=== PATIENT | female | born 1945 | race Caucasian/White ===

== ENCOUNTER 2024-11-12 17:49 | Inpatient (IN) | payer OTHER, SELFPAY ==
[2024-11-12] VITALS (14 sets, daily range): BP systolic 91–153; BP diastolic 36–85; BMI 31.2
[2024-11-12 11:42] LABS: Glucose - Point of Care 243 mg/dl (70-99)
[2024-11-12] MEDS: NSS 232 ML IV (12:14)
[2024-11-12 14:53] LABS: ACT-LR - POC 252 Seconds (116-155)
[2024-11-12 15:28] LABS: ACT-LR - POC 282 Seconds (116-155)
[2024-11-12 15:47] LABS: ACT-LR - POC 376 Seconds (116-155)
[2024-11-12 16:30] LABS: ACT-LR - POC 136 Seconds (116-155)
[2024-11-12 16:45] LABS: Hematocrit 26.4 % (37.0-47.0); Hemoglobin 8.6 g/dL (12.0-16.0); Mean Corp Hgb Conc. 32.6 g/dL (33.0-37.0); Mean Corpuscular Hgb 28.5 pg (27.0-31.0); Mean Corpuscular Volume 87.4 fL (81.0-99.0); Mean Platelet Volume 8.6 fL (7.4-10.4); Platelet Count 398 10^3/uL (130-400); Red Blood Cell Count 3.02 10^6/uL (4.20-5.40); Red Cell Dist. Width 13.9 % (11.5-14.5); White Blood Cell Count 10.2 10^3/uL (4.8-10.8)
[2024-11-12 17:02] LABS: Blood Urea Nitrogen 25 mg/dl (7-17); Calcium 8.5 mg/dl (8.4-10.2); Carbon Dioxide 24 mmol/L (22-30); Chloride 102 mmol/L (98-107); Estimated Creatinine Clearance 43 ml/min; Glucose 207 mg/dl (70-99); Sodium 133 mmol/L (135-145); eGFR 56.95
--- NOTE | 2024-11-12 17:45 | PTCARENOTE ---
Pt received from wharf labourer at 1745. Pt alert and oriented x4. c/o 9/10 headache, denies nausea at this time. DELACRUZ with equal strength throughout. 100% AV paced on tele with rates in the 70s. BP 128/59. Bilateral radial and DP pulses palpable. no edema
noted. POX 88% on right finger, 2L NC applied. Right radial TR band in place, fingers dusky, Dr. Nova at bedside, and orders for 3ml of air to be removed from TR band. Once removed, fingers turned pink and POX 97%. Lungs diminished in the bases.
No cough noted. Abdomen soft, round, nontender. Last BM yesterday. +BS. Pt educated on bedrest s/p cath, purwick applied per pt request and then removed. Pt voided 300 cristian urine. Right radial cath site soft, TR band in place, no drainage. Left AC
PIV intact. Pt informed RN of itching with novolog, CT OUTPATIENT CODING SPECIALIST notified no changes to medications noted.
--- NOTE | 2024-11-12 18:55 | ITS.CL.PN ---
Recovery Coach - Procedure Note
Procedure
Procedure Note:
CARDIAC CATHETERIZATION REPORT
Date of Procedure: 11/12/2024
Referring: Dr. Briseida Jovel MD
Indication: post-MN complete revascularization
PROCEDURE(S)
1. left heart catheterization
2. PCI with stent to LAD
3. IVUS of LAD
4. Shockwave lithotripsy of LAD
5. ultrasound guided vascular access
6. moderate sedation first 15 minutes
7. moderate sedation additional 15 minutes
ACCESS: 6F right radial artery (closure: radial band)
CATHETER: EBU3.5 guide
HEMODYNAMIC DATA
LV 145/16 (EDP 20) mmHg
AO 147/63 (80) mmHg
VASCULAR ACCESS: Under ultrasound guidance, the right radial artery was identified and patency confirmed. The vessel was then accessed using a micropuncture needle and modified Selinger technique with needle entry visualized in real-time. An 6F
sheath placed.
MODERATE SEDATION: Greater than 30 minutes of procedural sedation was utilized. An independent medical billing representative was present to assist with and help manage the patient's level of consciousness and physiologic status.
IVUS guided PCI to the LAD with Shockwave lithotripsy
The left main was engaged with an EBU 3.5 guide catheter and heparin administered to achieve ACT greater than 300. Run-through coronary wires were placed in the distal LAD and in the D2 for protection. IVUS was performed and demonstrated heavy
concentric calcification at the lesion site and a 3.75 mm reference vessel diameter. Shockwave lithotripsy was performed with a 4.0x12 Shockwave balloon with 30 pulses delivered. The shockwave balloon fully expanded at 6 LISA. A 3.5 x 22 mm [place]
frontier drug-eluting stent was selected and carefully positioned distal to the large D1 and fully covering the lesion. The stent was deployed at 14 lisa. A small puff confirmed normal flow in the jailed diagonal branch and the diagonal wire was
removed and then rewired through stent struts. Angiography at this time demonstrated an excellent PCI result, however, there was noted to be contrast extravasation near the LAD/circumflex bifurcation. On subsequent caudal angiography this was
better delineated to be a Baker grade II perforation originating from the very proximal LAD with slow washout. This was causing apparent extrinsic compression of the ostial circumflex with luminal narrowing but normal TIMI3 flow. There was also a
very small proximal stent edge dissection visualized in the caudal projection, likely unrelated to the perforation. Telemetry demonstrated no change in ST segment changes. The patient had no chest pain. Blood pressure was hypertensive and HR
stable and normal. CT surgery and echocardiography were emergently consulted. IVUS over the LAD wire demonstrated a patent though elliptical ostial circumflex and no clear evidence of vascular disruption in the proximal LAD. The stent was noted
to be well-expanded and apposed, and no proximal stent edge dissection was observed. Echocardiogram demonstrated normal biventricular function and trace/physiologic effusion only with no evidence of elevated intrapericardial pressure. Options were
discussed with CT surgery and additional experienced interventionalist cardiologists. It was noted that the vessel was not a good candidate for covered stent placement given that this would likely require covering the circumflex branch. Given the
patient's stability, plan was made for conservative management with serial angiography, echocardiography, and removal of wires with reversal of heparin. Wires were removed and 30 units of protamine were given. Over the next 2 hours serial
angiography demonstrated stability of the perforation with no progression of the degree of impingement on the ostial circumflex. There was no development of effusion on serial echocardiography. The patient remained entirely asymptomatic and
hemodynamically stable without signs of ischemia. Thus, the decision was made to take the patient off the table and monitor overnight in the CVICU. The guide was removed and LVEDP measured with a 6 Syriac pigtail catheter. The radial site was
closed with a TR band. The patient was already previously loaded with aspirin and Plavix so no additional antiplatelet was given. The patient was updated extensively as was her son.
RADIATION: dose 987 mGy; DAP 63.2 Gy*cm2; fluoroscopy time 16.1 min
CONCLUSIONS
1. successful IVUS-guided, Shockwave lithotripsy facilitated PCI of the mid LAD with placement of a 3.5 x 22 mm [place] frontier drug-eluting stent
2. proximal LAD Baker grade II perforation managed conservatively with heparin reversal and serial monitoring as described
RECOMMENDATIONS
1. expectant management after cardiac catheterization via right radial artery approach
2. monitoring overnight in CVICU for development of ischemia or hemodynamic instability suggestive of tamponade or compromised coronary flow; low threshold for re-look angiography if concern
3. aggressive secondary management of coronary artery disease
Copy to: Dr. Teo Warner MD (outpatient grinder set up operator jig); Dr. Briseida Jovel MD (referring grinder set up operator jig); Dr. Jose Barakat MD (PCP)
Signed: Abelardo Nova MD, PhD
[2024-11-12 19:06] LABS: Glucose - Point of Care 189 mg/dl (70-99)
[2024-11-12] MEDS: NOVOLOG FLEXPEN-MODERATE RESISTANCE 1 UNITS SC (19:10)
[2024-11-12] MEDS: NSS 250 IV (20:00)
--- NOTE | 2024-11-12 20:00 | PTCARENOTE ---
[facility]. Pt resting comfortably in bed with family at bedside. pt is S/P cardiac sent. pt is AAOX4, moves all extremities appropriately, complains of 3/10 head ache and shoulder pain, see JAN. pt is AV paced on monitor via PPM.
heart sounds audible, radial and DP pulses palpable, no edema noted, BP trending down, 250ml NS bolus ordered. lung diminished at b/l bases, spo2 95% on 2 LNC. +BS x4 quadrants, abdomen soft non tender. pt yet to void on my shift but purewick in
place. right wrist cath site has TR band in place, following protocol. call martin within reach. will continue to monitor.
[2024-11-12] MEDS: TOPROL XL PO (20:17)
[2024-11-12] MEDS: TYLENOL 650 MG PO (20:17)
[2024-11-12] MEDS: DELTASONE 5 MG PO (20:17)
--- NOTE | 2024-11-12 21:00 | PTCARENOTE ---
TR band removed, no bleeding at cath site, clean dressing place.
[2024-11-12] MEDS: LIDOCAINE 4% PATCH 1 PATCH TOPICAL (22:08)
[2024-11-12] MEDS: LANTUS 0.24 UNITS SC (22:09)
[2024-11-12 22:12] LABS: Glucose - Point of Care 221 mg/dl (70-99)
[2024-11-12 22:35] LABS: Ionized Calcium 1.16 mMOL/L (1.15-1.33)
[2024-11-12 22:38] LABS: Hemoglobin 8.4 g/dL (12.0-16.0); Mean Corp Hgb Conc. 31.1 g/dL (33.0-37.0); Mean Platelet Volume 8.4 fL (7.4-10.4); Platelet Count 400 10^3/uL (130-400); White Blood Cell Count 14.3 10^3/uL (4.8-10.8)
[2024-11-12 22:50] LABS: Blood Urea Nitrogen 27 mg/dl (7-17); Calcium 8.7 mg/dl (8.4-10.2); Carbon Dioxide 28 mmol/L (22-30); Chloride 99 mmol/L (98-107); Estimated Creatinine Clearance 36 ml/min; Glucose 203 mg/dl (70-99); Potassium 4.4 mmol/L (3.5-5.1); Sodium 133 mmol/L (135-145); eGFR 45.76
[2024-11-13] VITALS (35 sets, daily range): BP systolic 95–185; BP diastolic 35–140; BMI 31.1
--- NOTE | 2024-11-13 | PTCARENOTE ---
pt assessment unchanged. AV paced on monitor. VSS. BP have increased since NS bolus. right wrist cath site dressing clean dry and intact. Lidocaine patch applied to pt's right shoulder. call martin within reach. will continue to monitor.
[2024-11-13 04:05] LABS: Hematocrit 26.8 % (37.0-47.0); Hemoglobin 8.4 g/dL (12.0-16.0); Mean Corp Hgb Conc. 31.3 g/dL (33.0-37.0); Mean Corpuscular Volume 89.3 fL (81.0-99.0); Mean Platelet Volume 8.4 fL (7.4-10.4); Platelet Count 408 10^3/uL (130-400); Red Cell Dist. Width 14.1 % (11.5-14.5); White Blood Cell Count 10.5 10^3/uL (4.8-10.8)
[2024-11-13 04:44] LABS: Blood Urea Nitrogen 29 mg/dl (7-17); Calcium 9.7 mg/dl (8.4-10.2); Carbon Dioxide 26 mmol/L (22-30); Chloride 102 mmol/L (98-107); Estimated Creatinine Clearance 36 ml/min; Glucose 228 mg/dl (70-99); HDL Cholesterol 46 mg/dl; LDL Cholesterol, Calculated 25 mg/dl; Potassium 5.3 mmol/L (3.5-5.1); Sodium 135 mmol/L (135-145); Total Cholesterol 117 mg/dl (50-199); Triglyceride 234 mg/dl (10-149); Very Low Density Lipoprotein 46 mg/dl (0-30); eGFR 45.76
[2024-11-13] MEDS: SYNTHROID 75 MCG PO (06:29)
--- NOTE | 2024-11-13 08:04 | CON.INTV ---
Addendum entered and electronically signed by Liliana Hurley DO 11/14/24 07:15:
Transferred to IVU, no acute respiratory conditions
Will sign off at this time, please call with questions
Original Note:
Consultation
Consultation Request
Date/Time Consultation Requested: 11/13/24
Date/Time Consultation Performed: 11/13/24
Performing Provider: Mei
Reason for Consultation: CVICU
Medical History
-
History of Present Illness:
87-year-old female with previous history of CAD status post PCI at [facility] 10/28/2024, diabetes, permanent A-fib on Xarelto, hypertension presenting for elective catheterization. Underwent catheterization on 11/12/2024 with placement of a
drug-eluting stent in the LAD with resultant perforation. Was admitted post procedurally to CVICU for observation. Had been maintained off pressors throughout the night. Has comorbid history of COPD, maintained on inhalers.
Past Medical History
Past Medical History: Other (see list below)
Social History
Tobacco: Former Smoker
Alcohol: None
Drug: None
Family History
Family History: Reviewed & Not Pertinent
Allergies / Home Medications
Allergies
Allergy/AdvReac Type Severity Reaction Status Date / Time
No Known Allergies Allergy Verified 11/12/24 11:08
Home Medications
�Medication �Instructions �Recorded �Confirmed �Last Taken �Type
albuterol sulfate 90 mcg/actuation 2 puff inhalation Q4HPRN PRN sob/ 11/12/24 11/12/24 10/29/24 History
aerosol inhaler wheeze
alprazolam 0.25 mg tablet 0.25 mg PO DAILY PRN anxiety 11/12/24 11/12/24 Unknown History
aspirin 81 mg chewable tablet 81 mg PO DAILY 11/12/24 11/12/24 11/12/24 10:00 History
clopidogrel 75 mg tablet 75 mg PO DAILY 11/12/24 11/12/24 11/12/24 10:00 History
escitalopram oxalate 20 mg tablet 20 mg PO DAILY 11/12/24 11/12/24 11/11/24 09:00 History
fluticasone fur. 200 mcg-umeclid 1 inh inhalation DAILY 11/12/24 11/12/24 11/12/24 10:00 History
62.5 mcg-vilant 25 mcg
inhalat.powder
furosemide 40 mg tablet 40 mg PO DAILY 11/12/24 11/12/24 11/11/24 09:00 History
inclisiran 284 mg/1.5 mL 284 mg SC [id number] 11/12/24 11/12/24 10/13/24 History
subcutaneous syringe
insulin degludec 100 unit/mL (3 24 unit SC HS 11/12/24 11/12/24 11/11/24 21:30 History
mL) subcutaneous pen (Tresiba
FlexTouch U-100 insulin)
insulin lispro 100 unit/mL 10 - 24 unit SC TID 11/12/24 11/12/24 11/11/24 18:00 History
subcutaneous pen (Humalog KwikPen
(U-100) Insulin)
levothyroxine 75 mcg tablet 75 mcg PO DAILY 11/12/24 11/12/24 11/11/24 08:00 History
(Synthroid)
lisinopril 10 mg tablet 10 mg PO DAILY 11/12/24 11/12/24 11/11/24 09:00 History
metoprolol succinate 100 mg 100 mg PO BID 11/12/24 11/12/24 11/12/24 10:00 History
tablet,extended release 24 hr
(Toprol XL)
pantoprazole 40 mg tablet,delayed 40 mg PO DAILY 11/12/24 11/12/24 11/11/24 09:00 History
release
prednisone 10 mg tablet 10 mg PO DAILY 11/12/24 11/12/24 11/11/24 09:00 History
prednisone 10 mg tablet 10 mg PO Q48H@209911/12/24 11/12/24 Unknown History
prednisone 5 mg tablet 5 mg PO Q48H@2100 11/12/24 11/12/24 Unknown History
rivaroxaban 15 mg tablet (Xarelto) 15 mg PO QPM 11/12/24 11/12/24 11/09/24 History
Review of Systems
-
History Source: Patient
All other systems: Negative unless noted
Vitals / Labs / Diagnostic Testing
Vital Signs
Temp Pulse Resp BP Pulse Ox
97.8 F 70 17 151/65 97
11/13/24 04:00 11/13/24 07:30 11/13/24 07:30 11/13/24 07:00 11/13/24 07:30
Lab Data
11/13/24 03:28
11/13/24 03:28
Diagnostic Testing:
Physical Exam
-
HEENT: Normocephalic, Anicteric and Moist Mucous Membranes
Cardiovascular: S1/S2 and Regular Rhythm
Respiratory: Clear and Non-Labored Respirations
GI: Soft, Non Distended and Non Tender
Neurology: Awake, Alert, Oriented and No Motor Deficits
Skin: Warm, Dry and Good Color
General: Comfortable and Other (NAD)
Assessment
-
87-year-old female with previous history of CAD status post PCI at [facility] 10/28/2024, diabetes, permanent A-fib on Xarelto, hypertension presenting for elective catheterization. Underwent catheterization on 11/12/2024 with placement of a
drug-eluting stent in the LAD with resultant perforation. Was admitted post procedurally to CVICU for observation.
CAD/NSTEMI s/p LHC s/p MYRIAM 11/12/24
C/b LAD perforation
Conditions present COMMERCIAL REAL ESTATE MANAGER
Chronic anemia
PMR
COPD
GERD
Hypothyroidism
Anxiety
DM2
Afib on Xarelto
HTN/HLD
Moderate mitral stenosis on ECHO
Plan
S/p LHC and MYRIAM to LAD with perf POD #1
Not currently on pressors
ECHO reviewed with hyperdynamic function
Cards following for further management
Pain control
RASS goal of 0
Currently stable on room air
No prior history of oxygen use at home
CXR with no acute findings
Prior history of pulmonary disease: COPD
No prior PFTs available for review
Resume on home inhalers
Can add nebulizers if needed
Aspiration precautions
Encouraged incentive spirometry, OOB/ambulation/early mobility
Advance diet as tolerated
GI prophylaxis if indicated for mechanical ventilation >48 hours
Monitor critical I/O's
Short/chest tube output
Hb/platelets postoperatively stable
Trend CBC for now
Can transfuse if indicated for Hb <7, plt <50 in surgical patients
DVT prophylaxis including SCDs
If doing well, can consider discharge planning per team
Diagnostic Data
Chest X-Ray: 11/13/24- Minimal left lower lobe atelectasis versus scarring.
CT Scan:
Echo: 11/13/24- -Moderate left ventricular hypertrophy. Left ventricular ejection fraction is > 75%. Normal regional wall motion. -Normal right ventricular size and function. -Moderate mitral stenosis. Mild mitral regurgitation. -Trivial pericardial
effusion. No significant change since the prior earlier study on 11/13/2024.
PFT's:
Reports and relevant images were personally reviewed.
-----
Critical care time 51 mins -- this includes review of history, physical exam, medications, hemodynamic/ventilator parameters, laboratory data, imaging and discussion with house staff, pharmacy, respiratory therapy, accounting software specialist, and nursing.
[2024-11-13] MEDS: SPIRIVA RESPIMAT 2.5 MCG 2 PUFF INH (08:21)
[2024-11-13] MEDS: SYMBICORT 160/4.5 MCG INHALER 2 PUFF INH ×2 (08:22→21:17)
--- NOTE | 2024-11-13 08:30 | PTCARENOTE ---
Resumed care of patient. Walking rounds completed with previous RN. Pt assessed while she was sitting in the chair. Pt alert and oriented x4. Pt c/o 6/10 right shoulder pain. Denies nausea and shortness of breath. DELACRUZ with equal strength throughout.
100% AV paced with rates at 70. BP 131/56. Bilateral radial and DP pulse palpable. No edema noted. POX 93% on RA. Lungs diminished right >left. No cough noted. Abdomen soft, round, nontender. +BS. +gas. Due to void for this RN. Right radial cath
site soft and intact. Left AC PIV intact. See MAR for medication administration. See worklist for complete nursing assessment. Plan of care reviewed, in contact with Dr. Bundy regarding plan of care.
[2024-11-13] MEDS: NOVOLOG FLEXPEN-MODERATE RESISTANCE 3 UNITS SC (08:40)
[2024-11-13 08:42] LABS: Glucose - Point of Care 219 mg/dl (70-99)
--- NOTE | 2024-11-13 09:01 | PTCARENOTE ---
Dr. Nova at bedside to confirm plan of care, echo first, no plan for cath at this time. Dr. Nova spoke with patient and son, Timothy. All in agreement.
[2024-11-13 09:03] LABS: Glycohemoglobin (HgbA1c) 9.8 % (4.0-5.6)
--- NOTE | 2024-11-13 09:11 | W.PN.CARDCBS ---
Addendum entered and electronically signed by AUGUSTO Logan 11/13/24 09:57:
Stop Atorvastatin at d/c she is on [id number], inclisiran
Original Note:
Today's Communication / Plan
-
f/u ECHO this am
If effusion stable resume DAPT, hold Xarelto until after relook cath on 11/19
home later today if stable after DAPT resumed
Impression / Plan
-
Primary care Physician: Dr. Jose Barakat MD
Primary wax room supervisor: Dr. Teo Warner MD
Impression/Plan:
CAD/NSTEMI (PCI RCAx2 10/28/24 @[facility]) - post staged PCI and lithotripsy of LAD 11/12/24 c/b perforation proximal LAD with trivial pericardial effusion
no cp this am, tele AV dual paced no significant ectopy
will repeat ECHO this am to assess effusion, Hbg stable at 8.4 (has chronic anemia, baseline hbg ~9-10) will recheck labs on monday
If stable effusion will resume DAPT ASA/Plavix, hold Xarelto 15mg, will return on sunday 11/19 to reassess perforation prior to resuming Xarelto
continue metoprolol, lisinopril, atorvastatin
cardiac rehab c/s
f/u Dr. Warner in 2-4 weeks
DM2 - A1c 9.8, continue insulin but better management needed, will f/u PCP
Permanent Afib - Holding Xarelto, resume after cath 11/19 if stable
HTN - ok to resume metoprolol and lisinopril this am
Hyperlipidemia - LDL 25, TG 234 continue atorvastatin 40mg
Chronic anemia - starting IV iron infusions this monday
PMR
COPD
GERD
Hypothyroidism
Anxiety
Hypothyroidism
CONCLUSIONS
1. successful IVUS-guided, Shockwave lithotripsy facilitated PCI of the mid LAD with placement of a 3.5 x 22 mm [place] frontier drug-eluting stent
2. proximal LAD Baker grade II perforation managed conservatively with heparin reversal and serial monitoring as described
Progress Note - Finisher Operator
Subjective
Date of Service: November 13, 2024
no cp, sob, mild congestion productive cough
Objective
Labs:
11/13/24 03:28
11/13/24 03:28
Labs
Hgb 8.4 g/dL (12.0-16.0) L 11/13/24 03:28
Hct 26.8 % (37.0-47.0) L 11/13/24 03:28
Plt Count 408 10^3/uL (130-400) H 11/13/24 03:28
Sodium 135 mmol/L (135-145) 11/13/24 03:28
Potassium 5.3 mmol/L (3.5-5.1) H 11/13/24 03:28
BUN 29 mg/dl (7-17) H 11/13/24 03:28
Creatinine 1.2 mg/dL (0.6-1.0) H 11/13/24 03:28
Glucose 228 mg/dl (70-99) H 11/13/24 03:28
Vital Signs and I&O:
Vital Signs
Temp Pulse Resp BP Pulse Ox
98.5 F 70 13 142/61 96
11/13/24 08:00 11/13/24 09:00 11/13/24 09:00 11/13/24 09:00 11/13/24 09:00
Vital Signs
Temp Pulse Resp BP Pulse Ox
98.5 F 70 13 142/61 96
11/13/24 08:00 11/13/24 09:00 11/13/24 09:00 11/13/24 09:00 11/13/24 09:00
Intake & Output
11/11/24 11/12/24 11/13/24 11/14/24
06:59 06:59 06:59 06:59
Intake Total 722 / 722 0 / 0
Output Total 400 / 400
Balance 322 / 322 0 / 0
Physical Exam
Physical Exam
NAD< AOx3
S1, S2, RRR
CTAB, non labored, no wheeze
SNTND bsx4
R rad site c/d/i good pulse
[2024-11-13 09:34] LABS: ACT-LR - POC > 397 Seconds (116-155)
--- NOTE | 2024-11-13 10:08 | PTCARENOTE ---
Called to room by ocular care technologist. RN stated pt was having a possible reaction to the lumison for echo. Pt c/o itchy eyes and throat. POX 94% on 1L NC. Pt states reaction resolved within 2 minutes. BP 130/44. Pt alert and oriented x4. Mecca Stevens NP
notified of possible reaction.
--- NOTE | 2024-11-13 10:08 | CARDSERVLU ---
Echocardiogram with Lumason completed after protocol screening completed. Allergies verified.
Patent IV site: ___Left antecubital IV site clear__
IV site flushed with 0.9% NaCl pre and post administration.
Diluted bolus method utilized to enhance visualization of ventricular gamez.
Total volume given: _2___ mL
Pt complained of itchy eyes and throat felt slight itchy, O2 sat remained 94-95%. Pt denied any SOB, symptom resolved after few minutes. BP stable. No change in status, Lumason listed as possible allergy. Pt offers no complaints at present, CV ICU
staff aware.
[2024-11-13] MEDS: DELTASONE 10 MG PO ×2 (10:09→21:01)
[2024-11-13] MEDS: LEXAPRO 20 MG PO (10:09)
[2024-11-13] MEDS: PROTONIX 40 MG PO (10:09)
[2024-11-13] MEDS: LASIX 40 MG PO (10:10)
[2024-11-13] MEDS: TOPROL XL 100 MG PO ×2 (10:10→20:59)
[2024-11-13] MEDS: LOW STRENGTH ASPIRIN 81 MG PO (10:19)
--- NOTE | 2024-11-13 10:50 | PTCARENOTE ---
Pt assisted to bathroom per pt request, upon answering bathroom call martin, pt in rigors, assisted back to the chair, then to bed. Unable to obtain POX and BP due to patient shaking. Dr. Nova, Dr. Harris, Mecca Stevens all notified, Dr. Harris,
Gregor,and Mecca Stevens at bedside to assess patient. Orders for stat echo. BP 185/89, POX 88, increased to 4L NC. Echo at bedside. Meds administered as ordered. Pt reassured and emotional support provided. Blood cultures obtained by phlebotomy and IVT.
Rigors resolved ~1115. BP, POX, and HR stabilized.
--- NOTE | 2024-11-13 11:28 | W.PN.UPDATE ---
Update Note
Progress Note Update
Pt had echo this am with no change in pericardial effusion, she did have Lumason and had mild itchy eye/throat which resolved at the end of the study.
She got oob and ambulated to BR. When she returned she had tachycardia HR 120's, elevated BP, rigors and nausea.
Stat f/u Echo with unchanged effusion, mildly underfilled.
Will give IV bolus 500cc over 2 hours, culture blood, urine, flu and COVID now.
Will treat like allergic reaction with famotidine 40mg and Benadryl 25mg, she is chronically on steroids so will hold off.
continue to monitor closely
[2024-11-13] MEDS: ZOFRAN 4 MG IV (11:29)
[2024-11-13] MEDS: BENADRYL 25 MG IV (11:31)
[2024-11-13] MEDS: PEPCID 40 MG IV (11:31)
[2024-11-13] MEDS: NSS 500 IV (11:32)
[2024-11-13] MEDS: NSS (PRESERVATIVE FREE) 8 ML IV (11:32)
[2024-11-13] MEDS: TYLENOL 650 MG PO (12:00)
[2024-11-13] MEDS: PLAVIX 75 MG PO (12:00)
--- NOTE | 2024-11-13 12:00 | PTCARENOTE ---
Pt reassessed. Pt resting in bed. V-paced with rates in the 70s. BP 102/40. POX 97% on 2L NC. Right radial cath site soft, dressing CDI. No additional rigors noted.
[2024-11-13] MEDS: NSS (PRESERVATIVE FREE) IV (12:02)
[2024-11-13] MEDS: NOVOLOG FLEXPEN-MODERATE RESISTANCE 7 UNITS SC ×2 (13:41→16:34)
[2024-11-13 13:44] LABS: Glucose - Point of Care 338 mg/dl (70-99)
--- NOTE | 2024-11-13 14:07 | W.PN.UPDATE ---
Update Note
Progress Note Update
I was called to assess the patient after reports of HR of 130 bpm and rigors.
Obvious initial concern was for rupture of contained coronary rupture from yesterday.
STAT echocardiogram showed hyperdynamic LV function, no effusion.
Patient received IV echo contrast for echo this morning.
By the time of evaluation, HR had normalized. The patient subjectively felt better, though she still had some chills.
DDx includes infection vs. delayed/blunted allergic reaction (she takes home prednisone).
Plan for BCx x2, UA, CXR, famotidine 40 mg IV, diphenhydramine 25 mg IV.
Low threshold for initiation of ABX.
Close observation.
[2024-11-13 14:30] LABS: Urine Albumin Trace (Neg - Trace); Urine Bilirubin Negative (Negative); Urine Character Clear (Clear); Urine Color Yellow; Urine Glucose Trace (Negative); Urine Ketone Negative (Negative); Urine Leukocyte Negative (Negative); Urine Nitrite Negative (Negative); Urine Occult Blood Negative (Negative); Urine Urobilinogen Negative (Neg - 1+)
--- NOTE | 2024-11-13 15:40 | CM ---
Reviewed chart. Met with Mrs. Benitez and her son to review discharge plans. She states prior to admission she resides alone in a [address], [place] [place]. She states prior to admission she was independent with ambulation and adls.
She states she has a walker at home. She states she has a prescription plan. Her son states she is going to go to his home ofr a few days in [facility] before returning to her apartment. He states he resides in a three story home without any steps
to enter. She will be staying on the first floor. There is a main suite on the first floor. She states she has had [facility] in the past and she is agreeable to [facility]. Telephone call to [facility] to make the
referral. Sent the referral. Medical work-up in progress. The discharge plan is to go home with her son for a few days then return home to her apartment with [facility] when medically stable.
--- NOTE | 2024-11-13 16:30 | PTCARENOTE ---
Pt reassessed. Pt denies pain, shortness of breath, and nausea. Assisted OOB to chair, tolerated. V-paced on tele with rates in the 80s-90s. BP 117/60. POX 88% on RA, 1L applied, POX 92%. Right radial cath site intact. No rigors noted. Family at
bedside.
[2024-11-13 16:38] LABS: Glucose - Point of Care 300 mg/dl (70-99)
--- NOTE | 2024-11-13 21:19 | PTCARENOTE ---
Received patient at change of shift. Patient transferred from CVICU with no issues. Right radial site clean, dry, and intact; soft, no hematoma, no ecchymosis. BP 96/58, A-V paced 70s, 95% on 1L. Discussed plan for evening and weaning off oxygen.
Patient agreed to call nurse with any shortness of breath. Call martin within reach.
[2024-11-13 22:20] LABS: Glucose - Point of Care 359 mg/dl (70-99)
[2024-11-13] MEDS: LANTUS 0.24 UNITS SC (22:35)
[2024-11-14 03:46] VITALS: BP 137/54
[2024-11-14] MEDS: SYNTHROID 75 MCG PO (03:57)
[2024-11-14 04:32] LABS: Hematocrit 25.3 % (37.0-47.0); Hemoglobin 8.2 g/dL (12.0-16.0); Mean Corp Hgb Conc. 32.4 g/dL (33.0-37.0); Mean Corpuscular Volume 89.4 fL (81.0-99.0); Mean Platelet Volume 8.7 fL (7.4-10.4); Platelet Count 305 10^3/uL (130-400); Red Blood Cell Count 2.83 10^6/uL (4.20-5.40); Red Cell Dist. Width 13.7 % (11.5-14.5); White Blood Cell Count 8.3 10^3/uL (4.8-10.8)
[2024-11-14 04:50] LABS: Blood Urea Nitrogen 31 mg/dl (7-17); Calcium 9.8 mg/dl (8.4-10.2); Carbon Dioxide 28 mmol/L (22-30); Chloride 99 mmol/L (98-107); Estimated Creatinine Clearance 29 ml/min; Glucose 332 mg/dl (70-99); Magnesium 1.9 mg/dl (1.6-2.3); Sodium 133 mmol/L (135-145); eGFR 35.01
[2024-11-14 06:53] VITALS: BP 135/56
[2024-11-14 06:54] LABS: Glucose - Point of Care 357 mg/dl (70-99)
[2024-11-14] MEDS: SPIRIVA RESPIMAT 2.5 MCG 2 PUFF INH (07:25)
[2024-11-14] MEDS: SYMBICORT 160/4.5 MCG INHALER 2 PUFF INH (07:25)
--- NOTE | 2024-11-14 07:58 | W.PN.CD ---
Today's Communication / Plan
-
discharge with plan for labs tomorrow to track Cr
cont. DAPT asa/plavix as outpatient
return to clinical laboratory manager Monday for relook angio
Impression / Plan
-
Primary care Physician: Dr. Jose Barakat MD
Primary band sawyer: Dr. Teo Warner MD
Impression/Plan:
CAD/NSTEMI (PCI RCAx2 10/28/24 @[facility]) - post staged PCI and lithotripsy of LAD 11/12/24 c/b contained perforation/pseudoaneurysm of proximal LAD
no cp this am, tele AV dual paced no significant ectopy
no effusion on serial echocardiograms
Hbg stable at 8.2 (has chronic anemia, baseline Hb ~9-10)
will continue DAPT with ASA/plavix and hold AC for now pending re-look angiography on Monday
continue metoprolol, lisinopril, atorvastatin
cardiac rehab c/s
f/u Dr. Warner in 2-4 weeks
Rigors / tachycardia, resolved
brief episode yesterday of subjective rigors without fever and sinus tachycardia
echo ruled out effusion, cardiac function unchanged
resolved spontaneously in ~1 hour
differential includes sepsis, delayed reaction to lumison
CXR/urine/flu negative, BCx pending
given stability did not empirically treat with abx
will follow up blood cultures
AMADA
possible post cath contrast induced
labs Monday to ensure stability
DM2 - A1c 9.8, continue insulin but better management needed, will f/u PCP
Permanent Afib - Holding Xarelto, resume after cath 11/19 if stable
HTN - cont. metoprolol and lisinopril
Hyperlipidemia - LDL 25, TG 234 continue atorvastatin 40mg
Chronic anemia - starting IV iron infusions this Monday
PMR
COPD
GERD
Hypothyroidism
Anxiety
Hypothyroidism
CONCLUSIONS
1. successful IVUS-guided, Shockwave lithotripsy facilitated PCI of the mid LAD with placement of a 3.5 x 22 mm Aaron frontier drug-eluting stent
2. proximal LAD Baker grade II perforation managed conservatively with heparin reversal and serial monitoring as described
Physical Exam
Vital Signs/Labs
Vital Signs
Temp Pulse Resp BP Pulse Ox
37.1 C 82 18 137/54 92
11/14/24 06:51 11/14/24 07:29 11/14/24 07:29 11/14/24 03:46 11/14/24 07:29
11/13/24 11/14/24 11/15/24
06:59 06:59 06:59
Actual Weight 77.1 kg
11/14/24 03:52
11/14/24 03:52
Magnesium 1.9 mg/dl (1.6-2.3) 11/14/24 03:52
Triglycerides 234 mg/dl (10-149) H 11/13/24 03:28
LDL Cholesterol, Calc 25 mg/dl 11/13/24 03:28
VLDL Cholesterol, Calc 46 mg/dl (0-30) H 11/13/24 03:28
HDL Cholesterol 46 mg/dl 11/13/24 03:28
Physical Exam
Constitutional: No acute distress
Cardiovascular: Rhythm & rate is regular
Respiratory: Respiratory effort normal
Neuro/Psych: AO x 3
Data Reviewed
-
Date of Service: November 14, 2024
Medical Decision Making: Reviewed Test Results
EKG: Tracing Personally Visualized and interpreted
Echo: Tracing Personally Visualized and interpreted
X-Ray/CT/US/MRI/NUC/PET: Image Personally Visualized and interpreted
Medical Tests (PFT, Pathology etc): Image Personally Visualized and interpreted
Labs: Labs Reviewed by me
--- NOTE | 2024-11-14 09:25 | CM ---
[facility] has accepted pt. for [facility].
Plan is for home w/ [facility] fax# [phone]
[2024-11-14] MEDS: LEXAPRO 20 MG PO (09:26)
[2024-11-14] MEDS: TOPROL XL 100 MG PO (09:26)
[2024-11-14] MEDS: LASIX 40 MG PO (09:26)
[2024-11-14] MEDS: PROTONIX 40 MG PO (09:27)
[2024-11-14] MEDS: NOVOLOG FLEXPEN-MODERATE RESISTANCE 9 UNITS SC (09:27)
[2024-11-14] MEDS: PLAVIX 75 MG PO (09:45)
[2024-11-14] MEDS: LOW STRENGTH ASPIRIN 81 MG PO (09:45)
[2024-11-14] MEDS: DELTASONE 10 MG PO (09:46)
--- NOTE | 2024-11-14 10:38 | W.DS.TRANS ---
DC Summary - [employer]er [employer]
-
Discharge Instructions:
Discharge Diagnosis/Procedures Angioplasty and stent to Left Anterior
Descending artery
Diet Low Cholesterol,Diabetic, Carb Controlled
Driving Restrictions No driving for 24 hours
Blood Work check BMP at iron infusion tomorrow, results to
Dr. Nova
Other Services Cardiac Rehab
Instructions:
Stand-Alone Forms: DC Instructions- Cath/EP Lab
Changes to Home Medications: Yes
Discharge Medications:
DC Medications w/original date entered in [facility]
albuterol sulfate 90 mcg/actuation aerosol inhaler 2 puff inhalation Q4HPRN PRN sob/ wheeze 11/12/24
alprazolam 0.25 mg tablet 0.25 mg PO DAILY PRN anxiety 11/12/24
aspirin 81 mg chewable tablet 81 mg PO DAILY Blood Clot Prevention/Tx 11/12/24
escitalopram oxalate 20 mg tablet 20 mg PO DAILY Mental Health/Anxiety 11/12/24
fluticasone fur. 200 mcg-umeclid 62.5 mcg-vilant 25 mcg inhalat.powder 1 inh inhalation DAILY Lung/Breathing Issues 11/12/24
furosemide 40 mg tablet 40 mg PO DAILY Fluid Retention/Swelling 11/12/24
inclisiran 284 mg/1.5 mL subcutaneous syringe 284 mg SC [id number] Autoimmune Disorder 11/12/24
insulin degludec 100 unit/mL (3 mL) subcutaneous pen (Tresiba FlexTouch U-100 insulin) 24 unit SC HS Diabetes 11/12/24
insulin lispro 100 unit/mL subcutaneous pen (Humalog KwikPen (U-100) Insulin) 10 - 24 unit SC TID Diabetes 11/12/24
levothyroxine 75 mcg tablet (Synthroid) 75 mcg PO DAILY Thyroid 11/12/24
lisinopril 10 mg tablet 10 mg PO DAILY Blood Pressure 11/12/24
metoprolol succinate 100 mg tablet,extended release 24 hr (Toprol XL) 100 mg PO BID Heart Disease/Condition 11/12/24
pantoprazole 40 mg tablet,delayed release 40 mg PO DAILY Gastrointestinal Issue 11/12/24
prednisone 10 mg tablet 10 mg PO DAILY Anti-Inflammatory 11/12/24
prednisone 10 mg tablet 10 mg PO Q48H@2100 Anti-Inflammatory 11/12/24
prednisone 5 mg tablet 5 mg PO Q48H@2100 Anti-Inflammatory 11/12/24
rivaroxaban 15 mg tablet (Xarelto) 15 mg PO QPM Blood Clot Prevention/Tx 11/12/24
clopidogrel 75 mg tablet 75 mg PO DAILY Blood Clot Prevention/Tx #90 tabs 11/14/24
Home Medication Changes
new to plavix, holding xarelto for now
Pending Results: No
[2024-11-14 10:51] VITALS: BP 114/53
--- NOTE | 2024-11-14 11:46 | CM ---
CM following for DC planning needs.
Met w/ patient at bedside.
She has been transferred to IVU from CVICU. Pt. feels well and is hopeful for DC today; offers no concerns/needs at this time.
Plan: HOME, no needs.
--- NOTE | 2024-11-14 12:04 | PTCARENOTE ---
Pt c/o itching under ECG pads, changed to red dot brand with some improvement, no visible change to pt's skin, Mecca Stevens NP aware. Telemetry and IV devices removed. Discharge instructions reviewed with pt and her son regarding activity guidelines,
wound care, medications and their possible side effects, reporting cares and concerns and follow up lab work and tests. Very good understanding verbalized. Pt escorted out via wheelchair and discharged to home.
== END 2024-11-14 11:53 | disposition home or self-care (01) | DRG 323 ==
LOC: IVU 17:49
PROVIDERS: Internal Medicine Cardiovascular Disease; Nurse Practitioner; Nurse Practitioner Adult Health; ADMITTING PHYSICIAN Student in an Organized Health Care Education/Training Program; FAMILY PHYSICIAN Internal Medicine; OTHER PHYSICIAN Internal Medicine
PROC: B240ZZ3 Ultrasonography of Single Coronary Artery, Intravascular (ICD-10-PCS; 2024-11-12)
PROC: 02F03ZZ Fragmentation in Coronary Artery, One Artery, Percutaneous Approach (ICD-10-PCS; 2024-11-12)
PROC: 4A023N7 Measurement of Cardiac Sampling and Pressure, Left Heart, Percutaneous Approach (ICD-10-PCS; 2024-11-12)
PROC: 027034Z Dilation of Coronary Artery, One Artery with Drug-eluting Intraluminal Device, Percutaneous Approach (ICD-10-PCS; 2024-11-12)
DX: I25.10 Atherosclerotic heart disease of native coronary artery without angina pectoris (principal); I21.4 Non-ST elevation (NSTEMI) myocardial infarction; N17.9 Acute kidney failure, unspecified; I48.21 Permanent atrial fibrillation; I31.39 Other pericardial effusion (noninflammatory); I25.2 Old myocardial infarction; E11.9 Type 2 diabetes mellitus without complications; Z79.01 Long term (current) use of anticoagulants; I10 Essential (primary) hypertension; E78.5 Hyperlipidemia, unspecified; D64.9 Anemia, unspecified; M35.3 Polymyalgia rheumatica; J44.9 Chronic obstructive pulmonary disease, unspecified; K21.9 Gastro-esophageal reflux disease without esophagitis; E03.9 Hypothyroidism, unspecified; F41.9 Anxiety disorder, unspecified; Z79.02 Long term (current) use of antithrombotics/antiplatelets; Z79.4 Long term (current) use of insulin; Z79.82 Long term (current) use of aspirin; Z79.890 Hormone replacement therapy; Z79.899 Other long term (current) drug therapy; Z87.891 Personal history of nicotine dependence
CPT/HCPCS: 93308; 71045; 80048; 80061; 81003; 82330; 82962; 83036; 83735; 85027; 85347; 86850; 86870; 86900; 86901; 86905; 87040; 87502; 92972; 92978; 93005; 93306; 94640; 99152; 99153; C1725; C1753; C1761; C1874; C1894; C9600; Q9950; Q9967

== ENCOUNTER 2024-11-19 06:34 | Day surgery (SDC) | payer SELFPAY ==
[2024-11-19] VITALS (13 sets, daily range): BP systolic 96–164; BP diastolic 47–70; BMI 31.2
[2024-11-19 07:40] LABS: Glucose - Point of Care 192 mg/dl (70-99)
--- NOTE | 2024-11-19 08:32 | ITS.CL.PN ---
[facility] - Procedure Note
Procedure
Procedure Note:
CARDIAC CATHETERIZATION REPORT
Date of Procedure: 11/19/24
Referring: Dr. Abelardo Nova MD, PhD
Indication: re-look angiography to evaluate coronary pseudoaneurysm
PROCEDURE(S)
1. left heart catheterization
2. coronary angiography
ACCESS: 6F right radial artery (closure: radial band)
CATHETERS
1. 6F JR4
2. 6F JL3.5
MODERATE SEDATION: 22 minutes of moderate sedation was utilized. An independent director of medical staff services was present to assist with and help manage the patient's level of consciousness and physiologic status.
ULTRASOUND GUIDED VASCULAR ACCESS (right radial artery): Ultrasound was utilized for vascular access. The vessel was visualized under ultrasound and noted to be patent. An image of the vessel was stored permanently in the patient's medical record.
Under direct ultrasound guidance, vascular access was obtained using a modified Seldinger technique and a 6 [place] sheath was placed.
HEMODYNAMIC DATA
LV 128/17 (EDP 20) mmHg
AO 130/55 (mean 85) mmHg
CORONARY ANGIOGRAPHY
Dominance: right
LM: large and normal
LAD: large vessel giving rise to a large D1, moderate caliber D2, small D3. There is a widely patent stent in the mid-LAD. There is small area of contrast filling outside the vessel lumen adjacent to the very proximal LAD best seen in the COURTNEY caudal
projection that is smaller compared to prior angiogram. This is likely a pseudoaneurysm. Dye appears to wash out of the area quickly.
LCx: large vessel giving rise to a single large OM branch with mild disease. There is mild ostial pinching caused by the proximal LAD pseudoaneurysm. The degree of ostial narrowing has improved compared to prior angiogram.
RCA: large vessel giving rise to a large RPDA and large RPL system with multiple branches. There are widely patent stents in the proximal to mid RCA and otherwise mild disease.
RADIATION: dose 457 mGy; DAP 27.6 Gy*cm2; fluoroscopy time 3.4 min
CONCLUSIONS
1. coronary artery disease status post PCI as described with widely patent stents in the RCA and LAD
2. improved appearance of previously identified proximal LAD coronary pseudoaneurysm
3. mildly elevated LVEDP and no aortic stenosis
RECOMMENDATIONS
1. expectant management after cardiac catheterization via right radial approach
2. resume Xarelto 10 mg qHS tonight (reduced dosing due to both antiplatelet medication and reduced CrCl)
3. continue Plavix qD, stop ASA
4. interval coronary angiogram in 4-6 weeks
Copy to: Dr. Teo Warner MD (outpatient remote ruby on rails developer); Dr. Briseida Jovel MD (referring remote ruby on rails developer); Dr. Jose Barakat MD (PCP)
Signed: Abelardo Nova MD, PhD
== END 2024-11-19 11:28 | disposition home or self-care (01) ==
LOC: CATH 06:34
PROVIDERS: ATTENDING PHYSICIAN Student in an Organized Health Care Education/Training Program; FAMILY PHYSICIAN Internal Medicine; OTHER PHYSICIAN Internal Medicine Cardiovascular Disease
DX: Q24.5 Malformation of coronary vessels (principal); I25.10 Atherosclerotic heart disease of native coronary artery without angina pectoris; Z95.5 Presence of coronary angioplasty implant and graft; I25.2 Old myocardial infarction; I48.21 Permanent atrial fibrillation; I10 Essential (primary) hypertension; E78.5 Hyperlipidemia, unspecified; E03.9 Hypothyroidism, unspecified; E11.9 Type 2 diabetes mellitus without complications; J44.9 Chronic obstructive pulmonary disease, unspecified; Z87.891 Personal history of nicotine dependence; Z79.82 Long term (current) use of aspirin; Z79.4 Long term (current) use of insulin; Z79.01 Long term (current) use of anticoagulants; Z79.02 Long term (current) use of antithrombotics/antiplatelets
CPT/HCPCS: 99152; 76937; 82962; 93458; Q9967

== ENCOUNTER 2024-12-13 07:23 | Day surgery (SDC) | payer OTHER, SELFPAY ==
[2024-12-13] VITALS (17 sets, daily range): BP systolic 138–196; BP diastolic 53–83; BMI 31.4
[2024-12-13 08:16] LABS: Glucose - Point of Care 150 mg/dl (70-99)
[2024-12-13] MEDS: NSS 238 ML IV (08:52)
[2024-12-13 10:51] LABS: Glucose - Point of Care 141 mg/dl (70-99)
[2024-12-13] MEDS: NSS 1000 IV (10:52)
--- NOTE | 2024-12-13 11:20 | PTCARENOTE ---
Pt's pulse ox is 89-92%. Pt denies SOB at this time. Pt's son states pt's pulse ox is 89-91% at home as well. Will continue to monitor.
--- NOTE | 2024-12-13 16:37 | ITS.CL.PN ---
[employer] - Procedure Note
Procedure
Procedure Note:
Procedure Note:
CARDIAC CATHETERIZATION REPORT
Date of Procedure: 12/13/2024
Referring: Dr. Abelardo Nova MD, PhD
Indication: anginal chest pain, re-look angiography to evaluate coronary pseudoaneurysm
PROCEDURE(S)
1. left heart catheterization
2. coronary angiography
ACCESS: 6F right radial artery (closure: radial band)
CATHETERS
1. 6F JR4
2. 6F JL3.5
MODERATE SEDATION: 20 minutes of moderate sedation was utilized. An independent medical oncologist was present to assist with and help manage the patient's level of consciousness and physiologic status.
ULTRASOUND GUIDED VASCULAR ACCESS (right radial artery): Ultrasound was utilized for vascular access. The vessel was visualized under ultrasound and noted to be patent. An image of the vessel was stored permanently in the patient's medical record.
Under direct ultrasound guidance, vascular access was obtained using a modified Seldinger technique and a 6 Nepali sheath was placed.
HEMODYNAMIC DATA
LV 148/21 (EDP 25) mmHg
AO 149/71 (mean 101) mmHg
CORONARY ANGIOGRAPHY
Dominance: right
LM: large and normal
LAD: large vessel giving rise to a large D1, moderate caliber D2, and small D3. There is a widely patent stent in the mid-LAD. Previously seen small area of contrast filling outside the vessel lumen adjacent to the very proximal LAD is stable
compared to prior angiogram. Dye appears to wash out of the area quickly.
LCx: large vessel giving rise to a single large OM branch with mild disease. There is mild ostial pinching caused by the proximal LAD pseudoaneurysm. The degree of ostial narrowing has improved compared to prior angiogram.
RCA: large vessel giving rise to a large RPDA and large RPL system with multiple branches. There are widely patent stents in the proximal to mid RCA and otherwise mild disease.
RADIATION: dose 402 mGy; DAP 28.1 Gy*cm2; fluoroscopy time 2.7 min
CONCLUSIONS
1. coronary artery disease status post PCI as described with widely patent stents in the RCA and LAD, no residual obstructive CAD
2. stable to slightly imporved appearance of previously identified proximal LAD coronary pseudoaneurysm
3. elevated LVEDP
RECOMMENDATIONS
1. expectant management after cardiac catheterization via right radial approach
2. resume Xarelto 10 mg qHS
3. continue Plavix qD
4. no further interval coronary imaging recommended unless patient has symptoms. The coronary pseudoaneurysm appears stable to improved in appearance and there is TIMI3 flow throughout with no residual obstructive CAD after RCA and LAD stenting.
Recent anginal symptoms are potentially due to microvascular disease and/or elevated filling pressures. Recommend continued titration of antihypertensive and GDMT for HFpEF.
Copy to: Dr. Teo Warner MD (outpatient supervisor acoustical tile carpenters); Dr. Jose Barakat MD (PCP)
Signed: Abelardo Nova MD, PhD
== END 2024-12-13 13:40 | disposition home or self-care (01) ==
LOC: CATH 07:23
PROVIDERS: ATTENDING PHYSICIAN Student in an Organized Health Care Education/Training Program; FAMILY PHYSICIAN Internal Medicine; OTHER PHYSICIAN Internal Medicine Cardiovascular Disease
DX: I25.119 Atherosclerotic heart disease of native coronary artery with unspecified angina pectoris (principal); Z79.02 Long term (current) use of antithrombotics/antiplatelets; I50.32 Chronic diastolic (congestive) heart failure; I25.3 Aneurysm of heart; I10 Essential (primary) hypertension
CPT/HCPCS: 99152; 76937; 82962; 93458; C1894; Q9967

== ENCOUNTER 2025-04-18 00:23 | Inpatient (IN) | payer OTHER, SELFPAY ==
[2025-04-17 21:26] VITALS: BP 153/78
[2025-04-17 21:46] LABS: % Basophils 0.6 % (0-2); % Eosinophils 1.2 % (0-6); % Immature Granulocytes 0.7 % (0-0.5); % Lymphocytes 12.1 % (20.5-51.1); % Monocytes 6.4 % (1.7-9.3); Absolute Basophils 0.1 10^3/uL (0-0.2); Absolute Eosinophils 0.1 10^3/uL (0-0.7); Absolute Immature Granulocytes 0.1 10^3/uL (0-0.05); Absolute Lymphocytes 1.2 10^3/uL (1.2-3.4); Absolute Monocytes 0.6 10^3/uL (0.1-0.6); Absolute Neutrophils 7.8 10^3/uL (1.4-6.5); Hematocrit 31.7 % (37.0-47.0); Hemoglobin 10.2 g/dL (12.0-16.0); Mean Corp Hgb Conc. 32.2 g/dL (33.0-37.0); Mean Corpuscular Hgb 33.2 pg (27.0-31.0); Mean Corpuscular Volume 103.3 fL (81.0-99.0); Mean Platelet Volume 9.1 fL (7.4-10.4); Nucleated Red Blood Cells % 0 %; Platelet Count 310 10^3/uL (130-400); Red Blood Cell Count 3.07 10^6/uL (4.20-5.40); Red Cell Dist. Width 14.8 % (11.5-14.5); White Blood Cell Count 9.9 10^3/uL (4.8-10.8)
[2025-04-17 22:10] LABS: ALT (SGPT) 110 U/L (0-35); AST (SGOT) 80 U/L (14-36); Albumin 4.2 g/dl (3.5-5.0); Alkaline Phosphatase 137 U/L (38-126); Blood Urea Nitrogen 46 mg/dl (7-17); Calcium 9.6 mg/dl (8.4-10.2); Carbon Dioxide 26 mmol/L (22-30); Chloride 108 mmol/L (98-107); Glucose 118 mg/dl (70-99); Potassium 5.9 mmol/L (3.5-5.1); Sodium 145 mmol/L (135-145); Total Bilirubin 0.7 mg/dl (0.2-1.3); Total Protein 6.9 g/dl (6.3-8.2)
[2025-04-17 22:12] LABS: NT-proBNP 8210 pg/ml; Troponin I 0.016 ng/ml
[2025-04-17 22:19] VITALS: BP 140/62
[2025-04-17 22:20] VITALS: BMI 34.5
[2025-04-17 22:21] VITALS: BP 140/62
[2025-04-17 23:00] VITALS: BP 128/69
--- NOTE | 2025-04-17 23:12 | ED.GENMED ---
History of Present Illness
General
Chief Complaint: Breathing Problem
Source: patient and family
Exam Limitations: none
Time Seen by Provider: 04/17/25 22:16
History of Present Illness
History of Present Illness:
Note:
CHIEF COMPLAINT(S)
- Shortness of breath and abdominal bloating.
HISTORY OF PRESENT ILLNESS
The patient is an 80-year-old female presenting with symptoms suggestive of fluid overload. She mentions recent weight gain, attributing it to increased fluid retention. She has been on furosemide (Lasix) but reports decreased urination despite
regular intake of the medication. The patient expresses abdominal bloating persisting for several days, which she describes as uncomfortable when sitting with her legs elevated. She reports shortness of breath, more noticeable when at rest and has
been practicing breathing exercises to alleviate the discomfort. She describes her oxygen saturation typically around 90 to 92% and uses supplemental oxygen at night. Her bowel movements have been irregular, characterized by decreased volume, but
not diarrhea. The patient notes that her legs are more swollen than usual.
ADDITIONAL HISTORY OBTAINED FROM SOURCES OTHER THAN THE PATIENT
- Per accompanying family member, the patients probium P levels are slightly elevated.
EXTERNAL RECORDS REVIEWED
- Recent lab tests indicate signs of fluid overload.
- Ordered a chest X-ray to assess pulmonary status and a urinalysis.
CHRONIC MEDICAL CONDITIONS SIGNIFICANTLY AFFECTING CARE
- Congestive heart failure.
- Hypertension.
- Diabetes mellitus, insulin-dependent.
- Gastroesophageal reflux disease (GERD).
- Atrial fibrillation.
SOCIAL HISTORY
- The patient was a smoker in the past.
MEDICATIONS
- Furosemide (Lasix) 40 mg twice daily.
- Plavix.
- Xarelto.
REVIEW OF SYSTEMS
- Respiratory: Shortness of breath, particularly at rest. Using breathing exercises.
- Gastrointestinal: Abdominal bloating and decreased bowel movement volume.
- Cardiovascular: Takes Plavix for previous cardiac procedures and Xarelto for atrial fibrillation.
PHYSICAL EXAM
- Nursing notes reviewed and vital signs reviewed.
-Patient is awake alert and oriented x 3
- Cardiovascular: Regular rate and rhythm.
- Respiratory: Lungs exhibit rhonchi at the bases.
- Abdomen: Soft, distended, no organomegaly.
- Extremities: Warm, dry, with 2+ edema in lower extremities.
- Affect is normal.
PLAN
- Admit for fluid management and diuretic optimization.
- Obtain chest X-ray and urine sample.
- Continue monitoring vital signs and oxygen saturation levels.
- Review and adjust current medications as needed.
DIFFERENTIAL DIAGNOSIS
The Differential Diagnosis includes, in no particular order and is not limited to:
1. Congestive heart failure exacerbation.
2. Pulmonary edema.
3. Fluid overload due to renal insufficiency.
4. Chronic obstructive pulmonary disease exacerbation.
CARE-UPDATE
04/17/25 - 22:53
The chest x-ray results indicate bibasilar atelectasis, with no other significant issues identified.
EKG
My independent EKG interpretation is:
- Rhythm: Atrial fibrillation
- Heart Rate: 89 beats per minute
- Notable Intervals: Right bundle branch block (RBBB) present
- Abnormalities: Left posterior fascicular block
- T-wave: Indeterminate abnormalities
- Comparison: Morphology not much different from EKG dated November 13, 2024
Disposition:
DIAGNOSIS
- Congestive Heart Failure Exacerbation (ICD-10: I50.9)
SUMMARY OF ENCOUNTER
The patient is an 80-year-old female with a history of congestive heart failure and COPD, who presented to the emergency department with complaints of shortness of breath and fluid retention. The patient reported a recent increase in weight and
decreased urination despite taking furosemide (Lasix) regularly. She uses supplemental oxygen at night, and her oxygen saturation levels are typically between 89 to 91%. The patient was admitted to the hospital for diuresis and further management of
her symptoms.
DISPOSITION
Admit
CONSIDERATION FOR ADMISSION
Admission was necessary for fluid management and optimization of diuretic therapy due to symptoms of fluid overload and congestion.
ASSESSMENT
The patient is experiencing an exacerbation of congestive heart failure, contributing to her symptoms of shortness of breath and fluid overload.
PLAN
- Initiate fluid management and adjust diuretic therapy.
- Monitor vital signs and oxygen saturation levels closely.
- Review and optimize current medications as needed.
- Give Lasix
INDEPENDENT INTERPRETATION OF TESTS
My independent interpretation of the patients symptoms and presentation supports a diagnosis of fluid overload related to congestive heart failure exacerbation.
MEDICATION RECONCILIATION
The patient reports taking furosemide (Lasix), but her current regimen may need adjustment based on her clinical presentation.
MEDICAL DECISION MAKING
The decision to admit the patient was made based on the complexity and severity of her symptoms, indicative of a congestive heart failure exacerbation. The patients diuretic therapy was evaluated, and her care involved consideration of potential
hospitalization to better manage her fluid status. There was a strong emphasis on monitoring the patients response to diuretics and adjusting her medications to avoid further complications.
Phy Exam
Physical Exam
Physical Exam:
.
Scores
Heart Failure Risk
Heart Failure Risk Score: Yes
History of Stroke or TIA: No
History of intubation for respiratory distress: No
Heart rate on ED arrival >/= 110: No
SaO2 <90% on arrival on room air: No
HR >/=110 during 3min walk test (or too ill to perform test): Yes
ECG has acute ischemic changes: No
Urea >/=12mmol/L (BUN 33.6mg/dL): Yes
Serum CO2>/=35mmol/L: No
Troponin I or T elevated to VA Level (0.4mg/dL): No
NT-proBNP >/=5,000ng/L (5,000pg/ml): Yes
HF Risk Score: 4
Admission Status: HIGH RISK 26.1% Consider SNF treatment or admission to hospital
Course
Orders/Labs/Results
Orders:
Orders
04/17/25 21:28
Electrocardiogram (*1) Urgent
Reason for Study: Other
Other Reason for Exam: Respiratory Distress
Cardiac Monitoring- Treatment ONCE
EKG- Treatment ONCE
IV Insert/Care/Rem.- Treatment PRN
Complete Blood Count/With Diff Urgent
Comprehensive Metabolic Panel Urgent
NT-proBNP Urgent
Troponin I Urgent
CR Chest - 2 Views Urgent
Comment:
Reason For Exam: respiratory distress
04/17/25 23:15
Furosemide [Lasix] 80 mg IV NOW STA
04/17/25 23:18
Ipratropium/Albuterol Sulfate [Duoneb] 3 ml INH R NOW ONE
04/18/25 00:06
Admit/Transfer Patient As Directed
Co-Sign Provider:
Level of Care: Inpatient admission
Assign to:: Telemetry
Physician / Group: Jeremy
Diagnosis: CHF exacerbation
Reason for Telemetry: Subacute Heart Failure
Date to Stop Telemetry: 04/20/25
Time to Stop Telemetry: 11:00
Reason for Hospitalization: CHF
Expected length of stay greater than two midnights?: Yes
ELOS- Estimated Length of Stay in days: 2
I certify the patient meets the requirements for IP care: Yes
PRN Pain Medication Management As Directed
May give lesser potent ordered pain med per pt: Yes
preference::
Protocol:: Medication orders for pain may be administered in a
manner that supports deferring to patient preference
when the pt is:
- Requesting an ordered lesser potent pain medication.
Least to most potent pain medications are defined
as: acetaminophen < NSAID < tramadol < opioids
(morphine, oxycodone, hydromorphone).
- Requesting a lesser dose of the same medication IF
ORDERED.
- Requesting a less intrusive route of administration
if both routes are prescribed by the provider (PO <
IV).
04/18/25 00:08
Code Status As Directed
Resuscitation Status: Full Code
04/18/25 00:13
Sodium Zirconium Cyclosilicate [Lokelma] 5 gram PO NOW STA
04/18/25 00:55
Acetaminophen [Tylenol] 650 mg PO Q6HPRN PRN
Albuterol [ProAIR HFA INHALER] 2 puff INH R Q6HPRN PRN sob/ wheeze
Alprazolam [Xanax] 0.25 mg PO DAILYPRN PRN anxiety
04/18/25 00:55
Echo 2D MMode Color/Doppler Routine
Reason for Study: heart failure
CARDIOLOGY CONSULT Routine
Consulting Provider: Elizabeth Rose
Was physician already notified: No
Reason for consult: CHF exacerbation
Consult Notification Routine
Specialty to Notify: Cardiology
Date consulting provider notified: 04/19/25
Time consulting provider notified: 07:22
Notified:: Provider
Comment: Ai
HF DIETARY CONSULT Routine
HF EDUCATOR CONSULT Routine
Comment:
VTE Contraindication Routine
VTE Mechanical Device Contraindication: Medical Contraindication
Pharmocologic Contraindication: Medical Contraindication
Activity As Directed
Activity Level: With Assistance
Bedside Glucose Monitoring As Directed
Frequency: AC&HS
Intake/ Output As Directed
Frequency: Per unit guidelines
Patient Education As Directed
Type: CHF folder
Comment: give on admission. Document in Interdisciplinary Education record
Sleep Apnea Assessment by RN As Directed
Comment:
Physician Instructions:
Vital Signs As Directed
Frequency: Other
Additional Instructions:: Q12 or per unit guidelines if more frequent.
Weight As Directed
Frequency: Daily
Type of Scale: Standing Scale
Comment: Daily morning weight. If unable to stand, use balanced bed scale.
Weight As Directed
Frequency: Once
Type of Scale: Standing Scale
Comment: Upon Admission. If unable to stand, use balanced bed scale.
O2 Therapy [RESP] Routine
Nasal Cannula Liter Flow: 2 LPM
Titrate/Wean O2 to maintain O2 sat greater than (%): 93
Pulse Ox/cont/shift [RESP] Routine
Quantity: 1
Special Instructions: Daily pulse oximetry at rest. If greater than 92% at rest also obtain pulse oximetry
while ambulating as tolerated.
US Abdomen Complete/Upper Routine
Comment:
Reason For Exam: transaminitis, ?cardiac hepatic congest, eval timoteo
04/18/25 01:00
Flush (0.9% Sodium Chloride) [Flush (Nss)] See Dose Instructions IV PER PROTOCOL
04/18/25 02:18
Urinalysis Reflex To Culture Routine
Date Specimen was Collected: 04/18/25
Time Specimen was Collected: 02:12
Urine Creatinine Routine
Date Specimen was Collected: 04/18/25
Time Specimen was Collected: 02:12
Urine Sodium Routine
Date Specimen was Collected: 04/18/25
Time Specimen was Collected: 02:12
04/18/25 Breakfast
1800 calorie (15 carb) Diabetic
At Your Request: Full Participation
Does patient need a safe tray?: No
Fluid Restriction: 1500 mL/day (50 oz)
Diabetic Diet: Sodium, 2 Gram
Potassium, 2 Gram
Levothyroxine [Synthroid] 75 mcg PO DAILY @ 0600
04/18/25 06:39
Cardiovascular Evaluation IN AM
Magnesium IN AM
TSH Reflex To Free T4 IN AM
04/18/25 07:30
Insulin Aspart Corrective Low [Novolog Flexpen-Low Resistance] See Protocol SC AC
04/18/25 08:00
Budesonide/Formoterol 160/4.5 [Symbicort 160/4.5 Mcg Inhaler] 2 puff INH R BID
Clopidogrel Bisulfate [Plavix] 75 mg PO DAILY
Escitalopram Oxalate [Lexapro] 20 mg PO DAILY
Furosemide [Lasix] 80 mg IV BID AT 0800,1600
Metoprolol Xl [Toprol Xl] 100 mg PO BID
Pantoprazole [Protonix] 40 mg PO DAILY
Prednisone [Deltasone] 10 mg PO DAILY
04/18/25 18:00
Rivaroxaban [Xarelto] 10 mg PO QPM
04/18/25 22:00
insulin degludec [Tresiba FlexTouch U-100] 22 unit SC HS
04/20/25 06:00
Basic Metabolic Panel IN AM
04/20/25 11:00
DC Protocol for Telemetry ONCE
Abnormal Lab Results
04/17/25
21:28
RBC 3.07 L 10^6/uL
(4.20-5.40)
Hgb 10.2 L g/dL
(12.0-16.0)
Hct 31.7 L %
(37.0-47.0)
MCV 103.3 H fL
(81.0-99.0)
MCH 33.2 H pg
(27.0-31.0)
MCHC 32.2 L g/dL
(33.0-37.0)
RDW 14.8 H %
(11.5-14.5)
Abs Immat Gran (auto) 0.1 H 10^3/uL
(0-0.05)
Absolute Neuts (auto) 7.8 H 10^3/uL
(1.4-6.5)
Immature Gran % 0.7 H %
(0-0.5)
Neutrophils % 79.0 H %
(42.2-75.2)
Lymphocytes % 12.1 L %
(20.5-51.1)
Potassium 5.9 H mmol/L
(3.5-5.1)
Chloride 108 H mmol/L
(98-107)
BUN 46 H mg/dl
(7-17)
Creatinine 1.9 H mg/dL
(0.6-1.0)
Glucose 118 H mg/dl
(70-99)
AST 80 H U/L
(14-36)
ALT 110 H U/L
(0-35)
Alkaline Phosphatase 137 H U/L
(38-126)
04/17/25 21:28
04/17/25 21:28
Vital Signs
Initial and Last Documented VS:
Initial Vital Signs
Temp Pulse Resp BP Pulse Ox
98.2 F 82 18 153/78 94
04/17/25 21:26 04/17/25 21:26 04/17/25 21:26 04/17/25 21:26 04/17/25 21:26
Last Documented Vital Signs
Temp Pulse Resp BP Pulse Ox
97.6 F 75 18 113/60 98
04/19/25 23:00 04/19/25 23:00 04/19/25 23:00 04/19/25 23:00 04/19/25 23:00
*Radiology
Radiology exam reviewed: radiology read reviewed
*Pulse Oximetry
Patient hypoxic: no
Comment: 92% on room air
*Critical Care Note
Total Time (30-74mins, 75-104mins- exclusive of procedures): Not Applicable
ED Attending Note
-
Portions of this chart may have been created with voice recognition software.� Occasional wrong word or��sound alike� substitutions may have occurred due to the inherent limitations of voice recognition software.
Discharge Plan
Departure
Patient Disposition: Admit
Date of Disposition: 04/17/25
Time of Disposition: 23:18
Admit to: Telemetry
Presentation/result/management discussed w/ accepting MD/DO: Hospitalist
Condition: Fair
Discharge Problem:
Acute exacerbation of CHF (congestive heart failure), Acute exacerbation of chronic obstructive pulmonary disease
Interventions
Interventions:
*Risk Screen - Suicide Last Done: 04/18/25 01:06
*General Assessment Last Done: 04/17/25 22:22
*Neglect/Abuse Screening Last Done: 04/17/25 21:26
*ED- Fall Risk Assessment Last Done: 04/17/25 22:22
*ED COVID-19 Vaccine History Last Done: 04/18/25 01:06
*Nursing Disposition Last Done: 04/18/25 01:01
ED- Cardiac Assessment Last Done: 04/17/25 22:30
ED- Pulmonary Assessment Last Done: 04/17/25 22:30
Discharge Date and Time
Discharge Date/Time: 04/18/25 01:01
--- NOTE | 2025-04-17 23:35 | HPS.HSE ---
Family Physician
-
Family Physician: Jose Barakat
Chief Complaint
-
Dyspnea exertion
History of Present Illness
This is a 80-year-old with past medical history of coronary disease status post [place] and multiple stents in the past, CHF with preserved EF, COPD on 2 L oxygen at night, atrial fibrillation, hypertension, insulin-dependent diabetes, presenting to the
emergency department with worsening dyspnea on exertion more profound over the last 1 week.
Patient reported that when she was last hospitalized she had a cardiac cath which showed elevated left ventricular end-diastolic pressure and no coronary disease blockage. She was medically managed and Lasix was increased to 40 mg twice daily. She
has been on 40 mg twice daily since then. She reported that she has gained about 10 pounds since that discharge but is unclear whether she lost weight.. She states that been compliant with medications as well as salt and fluid restriction. She
did report increasing lower extremity edema as well as some increased abdominal bloating. She reports mostly dyspnea on exertion without orthopnea or PND. At rest oxygen saturation is around 92% which is baseline for her in the setting of her
COPD. She only uses nocturnal oxygen. She denies having any chest pain. She denies nausea vomiting and she denies diaphoresis. She has no history of DVT or PE and she is currently on anticoagulation for A-fib.
She denies any cough, sick contacts fevers or chills.
In the emergency department the patient was afebrile, blood pressure was 130/70 with a pulse of 72 satting 95% on room air. ECG shows sinus rhythm at a rate of 89 with right bundle branch block and no acute ischemia. Troponin was 0.016. BNP was
8200.
Chest x-ray is mostly clear with some atelectasis.
CBC was unremarkable.
Electrolytes were notable for potassium of 5.9 but otherwise unremarkable. BUN and creatinine were elevated at 46 and 1.9. She has elevation in AST ALT to 80 and 110 respectively. Alk phos was also elevated 157. Bilirubin was normal.
Medical History
Past Medical History
Past Medical History: Reports Other
Additional Past Medical History:
CAD status post [place], multiple PCI and stents
CHF with preserved EF, last EF 25% with last cath showing elevated low ventricle end-diastolic pressure
Hypertension
Nonrheumatic tricuspid insufficiency
COPD not on home O2
Past Surgical History: Reports Other
Social History
Tobacco: Former Smoker
Alcohol: None
Drug: None
Living: With Family
Family History
Family History: Not pertinent
Allergies / Home Medications
Allergies reflects when Allergies were last updated in [facility].
Home Medications with original date entered in [facility]
Allergy/Medication List:
Allergies
Allergy/AdvReac Type Severity Reaction Status Date / Time
insulin aspart (From [facility] Allergy Rash Verified 04/17/25 21:26
U-100 Insulin aspart)
sulfur hexafluoride Allergy Itching Verified 04/17/25 21:26
microspheres (From [facility]) eyes and
throat
Home Medications
albuterol sulfate 90 mcg/actuation aerosol inhaler 2 puff inhalation Q6HPRN PRN sob/ wheeze 11/12/24
alprazolam 0.25 mg tablet 0.25 mg PO DAILYPRN PRN anxiety 11/12/24
escitalopram oxalate 20 mg tablet 20 mg PO DAILY Mental Health/Anxiety 11/12/24
furosemide 40 mg tablet 40 mg PO BID Fluid Retention/Swelling 11/12/24
inclisiran 284 mg/1.5 mL subcutaneous syringe 284 mg SC [id number] Autoimmune Disorder 11/12/24
insulin degludec 100 unit/mL (3 mL) subcutaneous pen (Tresiba FlexTouch U-100 insulin) 22 unit SC HS Diabetes 11/12/24
levothyroxine 75 mcg tablet (Synthroid) 75 mcg PO DAILY Thyroid 11/12/24
lisinopril 10 mg tablet 10 mg PO QPM Blood Pressure 11/12/24
metoprolol succinate 100 mg tablet,extended release 24 hr (Toprol XL) 100 mg PO BID Heart Disease/Condition 11/12/24
pantoprazole 40 mg tablet,delayed release 40 mg PO DAILY Gastrointestinal Issue 11/12/24
prednisone 10 mg tablet 10 mg PO DAILY Anti-Inflammatory 11/12/24
clopidogrel 75 mg tablet 75 mg PO DAILY Blood Clot Prevention/Tx #90 tabs 11/14/24
rivaroxaban 10 mg tablet (Xarelto) 10 mg PO QPM #30 tabs 11/19/24
fluticasone fur. 200 mcg-umeclid 62.5 mcg-vilant 25 mcg inhalat.powder (Trelegy Ellipta) 1 inh inhalation DAILY 12/13/24
insulin lispro 100 unit/mL subcutaneous pen (Admelog SoloStar U-100 Insulin lispro) 1 unit SC .SLIDINGSCALE 04/17/25
Review of Systems
-
Constitutional: Reports Weight Gain; Denies Fever
EENT: Reports No Symptoms
Respiratory: Reports Trouble Breathing; Denies Cough
Cardiac: Reports No Symptoms
Abdomen/GI: Reports No Symptoms
: Reports No Symptoms
Musculoskeletal: Reports No Symptoms
Skin: Reports No Symptoms
Neurological: Reports No Symptoms
Endocrine: Reports No Symptoms
Hematologic/Lymphatic: Reports No Symptoms
Psych: Reports No Symptoms
Physical Exam
Vital Signs
Vital Signs
Temp Pulse Resp BP Pulse Ox
98.3 F 72 16 128/69 91
04/17/25 22:21 04/17/25 23:15 04/17/25 23:15 04/17/25 23:00 04/17/25 23:15
Physical Exam
General: Obese; No Respiratory Distress
HEENT: NormoCephalic, Anicteric, Moist mucous membranes, Atraumatic and PERRLA; No Oxygen
Respiratory: Clear
Cardiac: S1/S2, Regular Rhythm and Peripheral Edema; No Murmur, Rub or Gallop
Breast: Deferred by me
GI: Soft, Non Tender, Non Distended and Normal Bowel Sounds
Rectal: Deferred by Provider
Genito-urinary: Deferred by me
Musculoskeletal: No Clubbing, No Cyanosis, Edema, Left Lower Extremity and Edema, Right Lower Extremity
Skin: Warm
Neuro: AO x 3 and Nonfocal/grossly intact
Hematologic/Lymphatic: No Lymphadenopathy
Psych: Calm
Laboratory Results
-
04/17/25 21:28
04/17/25 21:
Laboratory Results
Total Bilirubin 0.7 mg/dl (0.2-1.3) 04/17/25:
AST 80 U/L (14-36) H 04/17/25:
ALT 110 U/L (0-35) H 04/17/25:
Alkaline Phosphatase 137 U/L (38-126) H 04/17/25:
Troponin I 0.016 ng/ml 04/17/25:
Data Reviewed
-
Diagnostic Radiology: Image Personally Visualized and interpreted and Report Reviewed by me
Medical Tests (Nuc Med, Echo, EKG etc): Image Personally Visualized and interpreted
Lab Data: Labs Reviewed by me
Old Records: Reviewed
Impression/Plan
-
IMPRESSION:
80-year-old female, history of CAD, CHF with preserved EF, (EF of around 75%), status post pacemaker placement, atrial fibrillation on anticoagulation, COPD on nocturnal home O2 was recently started on prednisone 10 mg daily for polymyalgia
rheumatica presenting to the emergency department with weight gain and worsening dyspnea on exertion over the last 1 week. Chest x-ray is clear and she is not on oxygen at baseline. She is not wheezing or coughing. BNP is markedly elevated to
8000, troponin is negative. ECG is nonischemic. She has elevated potassium as well as elevated creatinine to 1.9 and mild elevations in AST and alk phos. All of these suggest chronic worsening congestive heart failure and right-sided congestion.
Cannot rule out vol overload from recent prednisone or ATN. She is anticoagulated and has no history of PE.
PLAN:
CHF -CHF with preserved EF with acute on chronic exacerbation. Volume overloaded. Took 80 of Lasix p.o. today. Possibly volume overload exacerbated by steroid use for polymyalgia rheumatica.
- Admit to telemetry
- Continuing diuresis slowly and gently with Lasix 80 mg IV twice daily, consider addition of metolazone
- Fluid restrictions, salt restriction
- Daily weights,
- Echo in a.m.
- Check TSH
- Continue current dose of levothyroxine
- Cardiology consult
COPD -no evidence of acute extubation, patient has no wheezes there is no focal consolidation and she has no crackles.
- Continue inhaled steroids and beta agonist (Trelegy or equivalent)
- Nebs as needed
Atrial fibrillation -rate controlled, status post pacemaker
- Continue metoprolol 100 mg twice daily
- Continue Xarelto
Hyperkalemia -K5.9 no acute EKG changes. This is suspected due to AMADA and BALBINA inhibitor use
- Hold lisinopril for now
- Diuresis as above
- Will give a one-time dose of Lokelma
- Monitor K daily
- Low K diet
AMADA -suspect is from the congestive heart failure. She may also have ATN which is exacerbating CHF it is unclear at this time. She does not be oliguric.
- M and given volume overload, continue diuresis above as above for now
- Check UA, urine sodium
- Avoid nephrotoxin
- If creatinine rising in a.m., consult nephrology
Transaminitis -as stated I suspect this is secondary to congestive hepatopathy
- Right upper: Ultrasound
CAD
- continue plavix, statin and xarelto
DVT prophylaxis�on Xarelto
CODE STATUS�full code
[2025-04-17] MEDS: DUONEB 3 ML INH (23:37)
[2025-04-17] MEDS: LASIX 80 MG IV (23:49)
[2025-04-18] VITALS (11 sets, daily range): BP systolic 97–142; BP diastolic 47–81; BMI 33.5
[2025-04-18] MEDS: LOKELMA 5 GRAM PO (00:40)
--- NOTE | 2025-04-18 01:00 | TRANSFER ---
Pt up from ED to room 416-1. Pt assisted to stand and pivot to bed. PT AAOx3. VSS. Oriented to room, call martin within reach.
[2025-04-18 02:04] LABS: Glucose - Point of Care 141 mg/dl (70-99)
[2025-04-18 02:36] LABS: Urine Albumin Negative (Neg - Trace); Urine Bilirubin Negative (Negative); Urine Character Clear (Clear); Urine Color Yellow; Urine Glucose Negative (Negative); Urine Ketone Negative (Negative); Urine Leukocyte 1+ (Negative); Urine Nitrite Negative (Negative); Urine Occult Blood 3+ (Negative); Urine Urobilinogen Negative (Neg - 1+)
[2025-04-18 02:51] LABS: Urine White Cell 0-2 /HPF (0-5)
[2025-04-18 02:57] LABS: Urine Sodium 108 mmol/L (30-90)
[2025-04-18 03:11] LABS: Urine Bacteria Few (Negative)
[2025-04-18] MEDS: SYNTHROID 75 MCG PO (05:36)
[2025-04-18] MEDS: SYMBICORT 160/4.5 MCG INHALER 2 PUFF INH ×2 (07:15→20:09)
[2025-04-18 07:16] LABS: Glucose - Point of Care 119 mg/dl (70-99)
[2025-04-18 08:40] LABS: ALT (SGPT) 109 U/L (0-35); AST (SGOT) 52 U/L (14-36); Albumin 3.8 g/dl (3.5-5.0); Alkaline Phosphatase 136 U/L (38-126); Blood Urea Nitrogen 42 mg/dl (7-17); Calcium 9.2 mg/dl (8.4-10.2); Carbon Dioxide 31 mmol/L (22-30); Chloride 105 mmol/L (98-107); Direct Bilirubin 0.2 mg/dl (0.0-0.4); Estimated Creatinine Clearance 29 ml/min; Glucose 114 mg/dl (70-99); HDL Cholesterol 51 mg/dl; LDL Cholesterol, Calculated 53 mg/dl; Sodium 143 mmol/L (135-145); Total Bilirubin 0.7 mg/dl (0.2-1.3); Total Cholesterol 125 mg/dl (50-199); Total Protein 6.3 g/dl (6.3-8.2); Triglyceride 107 mg/dl (10-149); Very Low Density Lipoprotein 21 mg/dl (0-30)
[2025-04-18 08:53] LABS: TSH Reflex To Free T4 2.36 uIU/ml (0.47-4.68)
[2025-04-18] MEDS: LEXAPRO 20 MG PO (09:12)
[2025-04-18] MEDS: NOVOLOG FLEXPEN-LOW RESISTANCE SC (09:12)
[2025-04-18] MEDS: DELTASONE 10 MG PO (09:12)
[2025-04-18] MEDS: PROTONIX 40 MG PO (09:12)
[2025-04-18] MEDS: TOPROL XL 100 MG PO ×2 (09:12→20:34)
[2025-04-18] MEDS: PLAVIX 75 MG PO (09:12)
[2025-04-18] MEDS: LASIX 80 MG IV ×2 (09:15→17:40)
--- NOTE | 2025-04-18 10:17 | W.PN.HOSP.TC ---
Today's Communication/Plan
-
see PN
Assessment / Plan
Assessment / Plan
80yo F with PMHx of CAD s/p PCI x2 (most recent one in Dec 2024), HFpEF, anxiety, DM, PMR on chronic prednisone, GERD, HTN, Afib on Xarelto, COPD on nocturnal O2 2L came with worsenign SOB on excertion with minimal effort for past couple of days.
ALso noted appr 10lbs weight gain and LE swelling with abdominal bloating for past week. Patient not very reliable in her PMHx - confused her stent to be placed in Aprin, but in fact was in Dec. Her doctor also doubled dose of Furosemide as per
patient - not so long ago, after her stent placement, but still she is confusing the timeline. DOes not follow her daily weight at home.
A/P:
#Acute on chronic HFpEF
#CAD stable
#Afib, unspecified
Lasix, daily weight, follow Cr and electrolytes
Cardiology to follow
telemetry
Echo
cont rate control, Xarelto, Plavix, statin
#Hyperkalemia (Resolved)
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
Unclear Cr baseline
FeNA 8.8% - intrinsic, but on Lasix
#Transaminitirs
#Elvated alk.phos
most likely hepatic congestion
US RUQ: cholelithiasis, 3mm gallbladder polyp - no follow up advised
follow LFT
#Chronic anemia
macrocytic
check b12, folate
#2.6 cm rounded isoechoic focus inferior to the right hepatic lobe
Possible lobular hepatic parenchyma or adjacent right adrenal gland lesion
CT abd/pelvis - outpatient due to current SONAL
#Asymptomatic bacteriuria
urine WBC WNL - no symptoms, no indication to treat
#COPD, not in exacerbation
cont nocturnal O2
cont bronchodilators
#DM type 2 with nephropathy
Accuchecdks, cont insulin basal, add SS, DM diet
#Anxiety
#Hypothyroidism
#Essential HTN
#PMR
#GERD
cont home meds
TSH WNL
DVt ppx on Xarelto
Full code
I have spent at least 58min reviewing chart, test reslts, communication with consultants and providing direct patient care
Anticipated Discharge: > 48 hours
Subjective/Interval History
-
Date of Service: April 18, 2025
Objective Data
-
Labs:
Laboratory Results
04/18/25
06:39
Sodium 143
Potassium 4.0 D
Chloride 105
Carbon Dioxide 31 H
BUN 42 H
Creatinine 1.6 H
Glucose 114 H
Calcium 9.2
Total Bilirubin 0.7
AST 52 H
ALT 109 H
Alkaline Phosphatase 136 H
Vital Signs:
Vital Signs
Temp Pulse Resp BP Pulse Ox
97.8 F 65 14 126/59 98
04/18/25 07:00 04/18/25 07:19 04/18/25 07:19 04/18/25 07:00 04/18/25 07:19
I&O
04/17/25 04/18/25 04/19/25
06:59 06:59 06:59
Output Total 1000 / 1000
Balance -1000 / -1000
Review of Systems
-
History Source: Patient
All other systems: Reviewed and negative
Physical Exam
-
General: No Apparent Distress
Respiratory: Clear to Auscultation
Cardiac: Regular Rhythm
GI: Soft, Nontender and Distended
Musculoskeletal: No Clubbing, No Cyanosis, Edema, Right Lower Extrem and Edema, Left Lower Extrem
Neuro: Awake, Alert, Oriented and AO x 3
Psych: Calm
[2025-04-18 11:30] LABS: Glucose - Point of Care 235 mg/dl (70-99)
--- NOTE | 2025-04-18 12:06 | CON.CAR ---
Addendum entered and electronically signed by Sina Cloud MD 04/18/25 17:24:
Device interrogation reveals onset of paroxysmal atrial fibrillation at the beginning of this month which likely explains patient's CHF exacerbation. Will touch base with patient's outpatient speech therapy teacher about rhythm control.
Addendum entered and electronically signed by Sina Cloud MD 04/18/25 15:44:
I saw and examined the patient.
The CAMPAIGN ASSISTANT's note was reviewed and I agree with the note.
Comment:
80-year-old female with HFpEF, CAD, and atrial fibrillation who presents with dyspnea on exertion and abdominal bloating in the setting of 10 pound weight gain. She reports compliance with her 40 mg Lasix twice daily but feels that it is not making
her urinate as much as it used to. Her typical weight is around 173 pounds and recently at the doctor she was up to 185 pounds. Labs in the ER were notable for creatinine 1.9, troponin 0.016, BNP 8210, AST/ALT 80/110, alk phos 137. CXR was read
as bibasilar atelectasis. ECG shows atrial fibrillation with occasional ventricular pacing, right bundle branch block, left posterior fascicular block, and inferolateral T wave inversions. TTE with LVEF 70-75%, biatrial enlargement, moderate MS,
mild/mod MR, mod TR, PASP 65-70 mmHg.
Physical exam is notable for irregular rate/rhythm, no murmurs, lungs with faint bibasilar crackles, and trace/1+ bilateral lower extremity edema.
[facility] 12/13/2024: Widely patent stents, no obstructive CAD, LVEDP 25 mmHg at 174 pounds
Acute on chronic HFpEF. Severe exacerbation requiring IV diuresis. She is symptomatic with shortness of breath and abdominal bloating. Dry weight is likely less than 174 pounds (LVEDP 25 mmHg at that weight in December 2024) and her admit weight
is 189 pounds. Continue IV Lasix 80 mg twice daily. Recommend switching to Bumex on discharge as she thinks her Lasix was no longer working. Will review this plan with Dr. Warner. Cause of her HF exacerbation is unclear; she has been
compliant with meds and dietary restrictions, no recent illnesses. We will interrogate her device to see if she is having more atrial fibrillation which could be the cause. Asked case management to brannon SGLT2 inhibitors. No MRA given K5.9 on
admission.
Atrial fibrillation. Type unknown. Previous ECGs have been AV paced. She is in atrial fibrillation here. More frequent A-fib could be the cause of her CHF exacerbation as above. We will interrogate her device. In the meantime continue
metoprolol for rate control. Anticoagulation with rivaroxaban 10 mg daily (unclear why this dose; will check with OP cards).
Coronary artery disease. Negative troponin. Nonischemic ECG. No chest pain. s/p IVUS guided PCI to the LAD 11/2024. Repeat cath on 12/13/2024 with patent stents. On clopidogrel and Xarelto. Continue outpatient inclisiran.
Abdominal bloating with perihepatic lesion on abdominal ultrasound. Consider CT/MRI.
Original Note:
Consultation
Consultation Request
Date/Time Consultation Requested: 04/18/2025 01:00
Date/Time Consultation Performed: 04/18/2025 11:00
Requesting Provider: Dr. Luna
Performing Provider: AUGUSTO Dumont for Dr. Cloud
Reason for Consultation: Acute on chronic heart failure
Medical History
-
Chief Complaint: Shortness of breath
History of Present Illness:
Kenya Benitez is an 80-year-old female (known to Dr. Warner, her primary speech therapy teacher), with CAD, atrial fibrillation (type unknown, on Xarelto), HFpEF, GERD, hypertension, and type 2 diabetes mellitus who presented to the emergency department
the chief complaint of shortness of breath. Her shortness of breath started approximately 1 week ago. It has been getting worse over the past week. It was limiting her activity. She believes she has gained about 10 pounds. She reports
medication adherence. She has been maintaining a low-sodium diet and has not changed her fluid intake. She is having more abdominal bloating as well as lower extremity swelling.
Past Medical History
Past Medical History: Arrhythmias (atrial fibrillation [type unknown]), CAD, CHF, COPD, GERD, HTN, Hypercholesterolemia and IDDM
Past Surgical History: Gynecological and Tonsilectomy
Social History
Tobacco: Former Smoker (2 PPD for 30 years. Quit 1989.)
Alcohol: None
Employment: Retired
Family History
Family History: Reviewed & Not Pertinent
Allergies / Home Medications
Allergy/AdvReac Type Severity Reaction Status Date / Time
insulin aspart (From [employer] Allergy Rash Verified 04/17/25 21:26
U-100 Insulin aspart)
sulfur hexafluoride Allergy Itching Verified 04/17/25 21:26
microspheres (From [employer]) eyes and
throat
�Medication �Instructions �Recorded �Confirmed �Type
albuterol sulfate 90 mcg/actuation 2 puff inhalation Q6HPRN PRN sob/ 11/12/24 04/17/25 History
aerosol inhaler wheeze
alprazolam 0.25 mg tablet 0.25 mg PO DAILYPRN PRN anxiety 11/12/24 04/17/25 History
escitalopram oxalate 20 mg tablet 20 mg PO DAILY Mental 11/12/24 04/17/25 History
Health/Anxiety
furosemide 40 mg tablet 40 mg PO BID Fluid 11/12/24 04/17/25 History
Retention/Swelling
inclisiran 284 mg/1.5 mL 284 mg SC [id number] Autoimmune 11/12/24 04/17/25 History
subcutaneous syringe Disorder
insulin degludec 100 unit/mL (3 22 unit SC HS Diabetes 11/12/24 04/17/25 History
mL) subcutaneous pen (Tresiba
FlexTouch U-100 insulin)
levothyroxine 75 mcg tablet 75 mcg PO DAILY Thyroid 11/12/24 04/17/25 History
(Synthroid)
lisinopril 10 mg tablet 10 mg PO QPM Blood Pressure 11/12/24 04/17/25 History
metoprolol succinate 100 mg 100 mg PO BID Heart 11/12/24 04/17/25 History
tablet,extended release 24 hr Disease/Condition
(Toprol XL)
pantoprazole 40 mg tablet,delayed 40 mg PO DAILY Gastrointestinal 11/12/24 04/17/25 History
release Issue
prednisone 10 mg tablet 10 mg PO DAILY Anti-Inflammatory 11/12/24 04/17/25 History
clopidogrel 75 mg tablet 75 mg PO DAILY Blood Clot 11/14/24 04/17/25 Rx
Prevention/Tx #90 tabs
rivaroxaban 10 mg tablet (Xarelto) 10 mg PO QPM #30 tabs 11/19/24 04/17/25 Rx
fluticasone fur. 200 mcg-umeclid 1 inh inhalation DAILY 12/13/24 04/17/25 History
62.5 mcg-vilant 25 mcg
inhalat.powder (Trelegy Ellipta)
insulin lispro 100 unit/mL 1 unit SC .SLIDINGSCALE 04/17/25 04/17/25 History
subcutaneous pen (Admelog SoloStar
U-100 Insulin lispro)
Review of Systems
-
History Source: Patient
All other systems: Negative unless noted
Constitutional: No Symptoms
EENT: No Symptoms
Respiratory: No Symptoms
Cardiac: No Symptoms
Abdomen/GI: No Symptoms
: No Symptoms
Musculoskeletal: No Symptoms
Skin: No Symptoms
Neurological: No Symptoms
Endocrine: No Symptoms
Hematologic/Lymphatic: No Symptoms
Physical Exam
Vital Signs
Temp Pulse Resp BP Pulse Ox
97.7 F 85 20 131/56 93
04/18/25 11:17 04/18/25 11:17 04/18/25 11:17 04/18/25 11:17 04/18/25 11:17
Lab Results
04/17/25 21:28
04/18/25 06:39
Troponin I 0.016 ng/ml 04/17/25 21:28
Zfg-G-[id number] Pept 8210 pg/ml 04/17/25 21:28
Physical Exam
General: Well Developed, Well Nourished, No Apparent Distress and Comfortable
HEENT: Normocephalic, Anicteric and Moist Mucous Membranes
Respiratory: Clear and Non Labored Respirations
Cardiac: S1/S2, Regular Rhythm and Peripheral Edema (trace LE)
Breast: Deferred by me
GI: Soft, Non Tender, Non Distended and Normal Bowel Sounds
Rectal: Deferred by Provider
Genito-urinary: No Costovertebral Tender
Musculoskeletal: No Clubbing and No Cyanosis
Skin: Warm and Dry
Neuro: AO x 3
Hematologic/Lymphatic: No Lymphadenopathy
Psych: Calm
Impression / Plan
-
I/P: 80F with CAD, atrial fibrillation (type unknown), HFpEF, GERD, hypertension, and type 2 diabetes mellitus who presented to the emergency department the chief complaint of shortness of breath.
Outpatient speech therapy teacher: Dr. Warner
HFpEF, acute on chronic
- Diuresis with furosemide 40 mg IV twice daily
- She does not feel that her furosemide 40 mg home dose is making her void frequently
- She had an LVEDP of 20 mmHg during her cardiac catheterization 11/19/2024 (77.2 kg)
- Case management to brannon SGLT2
- Trend daily weight, I/O, and BMP with diuresis
- Echocardiogram
- HF education
CAD
- Stable without chest pain
- IVUS guided PCI to the LAD 11/2024
- On clopidogrel and Xarelto
Atrial fibrillation, type unknown
- Currently rate controlled
- Oral Anticoagulation: Xarelto 10 mg daily
- [id number]: Score at least 7 (Heart failure, HTN, age 75 or more, Diabetes Mellitus, Vascular disease, female gender)
Hypertension
- BP stable, follow with diuresis
AMADA on CKD, follow with diuresis
Mitral stenosis, moderate, peak/mean gradients 11/16 mmHg, update echocardiogram
Pacemaker, [employer], followed by primary speech therapy teacher
Dyslipidemia, on inclisiran in the outpatient setting
Type 2 diabetes mellitus, on insulin, per primary service
COPD, no acute exacerbation,
Anemia, chronic, she denies blood loss
Data Reviewed
-
EKG: Report Reviewed by me
Radiology: Report Reviewed by me
Medical Tests (Nuc Med, Echo etc): Report Reviewed by me
Labs: Labs Reviewed by me
Old Records: Reviewed
[2025-04-18] MEDS: TYLENOL 650 MG PO (12:11)
[2025-04-18] MEDS: NOVOLOG FLEXPEN-LOW RESISTANCE 2 UNITS SC (12:24)
[2025-04-18] MEDS: SOLU-MEDROL PF 40 MG IV (13:22)
--- NOTE | 2025-04-18 14:57 | CM ---
Initial assessment completed. Patient is a 80-year-old with past medical history of coronary disease status post AL and multiple stents in the past, CHF with preserved EF, COPD on 2 L oxygen at night, atrial fibrillation, hypertension,
insulin-dependent diabetes, presenting to the emergency department with worsening dyspnea on exertion.
Patient resides alone at [facility] in a 2nd floor apartment, elevator access. Patient is independent w/ the use of a RW, independent w/ ADLs. Home O2 (2L). No SNF hx, prev known to [facility].
Address, point of contact and insurance verified
PCP: Jose Barakat
Pharmacy: [facility]
CM consulted for brannon check for Jardiance and Farxiga. Placed call to patient's rx coverage, [employer], spoke w/ Al to review coverage benefits and co pays. Per Al, for both Jardiance and Farxiga, both 30 and 90 day supply, are covered w/ $0 co
pay.
Updated ordering physician
Plan: CM will cont to follow for d/c needs
[2025-04-18 16:31] LABS: Glucose - Point of Care 440 mg/dl (70-99)
[2025-04-18 17:35] LABS: Glucose 419 mg/dl (70-99)
[2025-04-18] MEDS: XARELTO 10 MG PO (17:40)
[2025-04-18] MEDS: NON-FORMULARY ITEM 24 UNIT SC (17:41)
[2025-04-18 19:52] LABS: Glucose - Point of Care 371 mg/dl (70-99)
[2025-04-18] MEDS: NON-FORMULARY ITEM 371 UNIT SC (20:34)
[2025-04-18 22:25] LABS: Glucose - Point of Care 236 mg/dl (70-99)
[2025-04-18] MEDS: LANTUS 0.22 UNITS SC (23:08)
[2025-04-19 03:23] VITALS: BP 115/63
[2025-04-19 06:00] VITALS: BMI 32.7
[2025-04-19] MEDS: SYNTHROID 75 MCG PO (06:13)
[2025-04-19 07:00] VITALS: BP 115/58
[2025-04-19 07:11] LABS: % Basophils 0.3 % (0-2); % Eosinophils 0.7 % (0-6); % Immature Granulocytes 0.6 % (0-0.5); % Lymphocytes 13.6 % (20.5-51.1); % Monocytes 7.9 % (1.7-9.3); % Neutrophils 76.9 % (42.2-75.2); Absolute Eosinophils 0.1 10^3/uL (0-0.7); Absolute Immature Granulocytes 0.1 10^3/uL (0-0.05); Absolute Lymphocytes 1.4 10^3/uL (1.2-3.4); Absolute Monocytes 0.8 10^3/uL (0.1-0.6); Absolute Neutrophils 7.8 10^3/uL (1.4-6.5); Hematocrit 30.4 % (37.0-47.0); Hemoglobin 9.8 g/dL (12.0-16.0); Mean Corp Hgb Conc. 32.2 g/dL (33.0-37.0); Mean Corpuscular Hgb 31.9 pg (27.0-31.0); Mean Platelet Volume 9.1 fL (7.4-10.4); Nucleated Red Blood Cells % 0 %; Platelet Count 311 10^3/uL (130-400); Red Blood Cell Count 3.07 10^6/uL (4.20-5.40); Red Cell Dist. Width 14.9 % (11.5-14.5); White Blood Cell Count 10.1 10^3/uL (4.8-10.8)
[2025-04-19 07:15] LABS: ALT (SGPT) 79 U/L (0-35); AST (SGOT) 29 U/L (14-36); Albumin 3.6 g/dl (3.5-5.0); Alkaline Phosphatase 123 U/L (38-126); Blood Urea Nitrogen 53 mg/dl (7-17); Calcium 9.2 mg/dl (8.4-10.2); Carbon Dioxide 29 mmol/L (22-30); Chloride 106 mmol/L (98-107); Estimated Creatinine Clearance 28 ml/min; Glucose 119 mg/dl (70-99); Magnesium 2.1 mg/dl (1.6-2.3); Potassium 3.8 mmol/L (3.5-5.1); Sodium 141 mmol/L (135-145); Total Bilirubin 0.7 mg/dl (0.2-1.3); Total Protein 6.1 g/dl (6.3-8.2)
[2025-04-19 07:22] LABS: Glucose - Point of Care 145 mg/dl (70-99)
[2025-04-19] MEDS: SYMBICORT 160/4.5 MCG INHALER 2 PUFF INH ×2 (07:23→19:59)
--- NOTE | 2025-04-19 08:16 | W.PN.CD ---
Today's Communication / Plan
-
She is down 5 pounds overnight and examines closer to euvolemia. Decrease Lasix to IV 80 mg once daily.
Discuss rhythm control strategy with outpatient transmissions systems operator
Impression / Plan
-
I/P: 80F with CAD, atrial fibrillation (type unknown), HFpEF, GERD, hypertension, and type 2 diabetes mellitus who presented to the emergency department the chief complaint of shortness of breath.
Outpatient transmissions systems operator: Dr. Warner
HFpEF, acute on chronic
- Severe exacerbation requiring IV diuresis and monitoring for drug toxicity. Suspect exacerbation is due to more frequent paroxysmal atrial fibrillation (started 2 weeks ago based on device interrogation)
- TTE 04/18/2025: LVEF 70-75%, biatrial enlargement, moderate MS, mild/mod MR, mod TR, PASP 65-70 mmHg.
- Dry weight is likely less than 174 pounds (LVEDP 25 mmHg at that weight in December 2024)
- Weight down 5lb overnight. Decrease to furosemide 80 mg IV daily
- She does not feel that her furosemide 40 mg home dose is making her void frequently. Will plan to switch to Bumex on dc
- Case management to brannon SGLT2. No MRI given hyperkalemia on admission.
- Trend daily weight, I/O, and BMP with diuresis
- HF education
Atrial fibrillation, type unknown
- Based on device interrogation this admission, she was not having any atrial fibrillation prior to ~2 weeks ago, then started having more frequent A-fib. Likely caused her CHF exacerbation.
- Currently rate controlled
- Will discuss rhythm control strategy with her outpatient transmissions systems operator
- Oral Anticoagulation: Xarelto 10 mg daily (subtherapeutic dose, will discuss with outpatient cardiology)
- [id number]: Score at least 7 (Heart failure, HTN, age 75 or more, Diabetes Mellitus, Vascular disease, female gender)
CAD
- Stable without chest pain
- IVUS guided PCI to the LAD 11/2024
- On clopidogrel and Xarelto
Hypertension
- BP stable, follow with diuresis
AMADA on CKD, follow with diuresis
Mitral stenosis, moderate, peak/mean gradients 11/16 mmHg, update echocardiogram
Pacemaker, [employer], followed by primary transmissions systems operator
Dyslipidemia, on inclisiran in the outpatient setting
Type 2 diabetes mellitus, on insulin, per primary service
COPD, no acute exacerbation,
Anemia, chronic, she denies blood loss
Subjective: Mild SOB with going to bathroom this AM. Does not feel like she put out much in response to Lasix.
Physical Exam
Vital Signs/Labs
Vital Signs
Temp Pulse Resp BP Pulse Ox
97.8 F 70 14 115/58 96
04/19/25 07:00 04/19/25 07:31 04/19/25 07:31 04/19/25 07:00 04/19/25 07:31
04/18/25 04/19/25 04/20/25
06:59 06:59 06:59
Actual Weight 189 lb 1 oz 184 lb 7 oz
04/19/25 06:34
04/19/25 06:34
Magnesium 2.1 mg/dl (1.6-2.3) 04/19/25 06:34
Triglycerides 107 mg/dl (10-149) 04/18/25 06:39
LDL Cholesterol, Calc 53 mg/dl 04/18/25 06:39
VLDL Cholesterol, Calc 21 mg/dl (0-30) 04/18/25 06:39
HDL Cholesterol 51 mg/dl 04/18/25 06:39
04/17/25
21:28
Qgy-D-Zhewvuudvbv Pept 8210
LAB Results
04/17/25
21:28
Troponin I 0.016
Physical Exam
Constitutional: No acute distress and Comfortable
Cardiovascular: Rhythm & rate is regular, Pedal edema is absent, S1S2 is normal and Murmur/rub/gallop absent
Respiratory: Respiratory effort normal and Lungs clear to auscul.
Neuro/Psych: AO x 3
Data Reviewed
-
Date of Service: April 19, 2025
Medical Decision Making: Reviewed Test Results, Independent Historian Assessment, Test Interpretation and Review of Case with other Provider
EKG: Tracing Personally Visualized and interpreted
Echo: Report Reviewed by me
Labs: Labs Reviewed by me
Old Records: Requested
[2025-04-19 08:19] LABS: Vitamin B12 796 pg/ml (239-931)
[2025-04-19] MEDS: TOPROL XL 100 MG PO ×2 (08:24→20:09)
[2025-04-19] MEDS: LEXAPRO 20 MG PO (08:24)
[2025-04-19] MEDS: PLAVIX 75 MG PO (08:24)
[2025-04-19] MEDS: PROTONIX 40 MG PO (08:24)
[2025-04-19] MEDS: LASIX IV (08:36)
[2025-04-19] MEDS: DELTASONE 10 MG PO (09:20)
[2025-04-19] MEDS: NON-FORMULARY ITEM 10 UNIT SC (09:21)
--- NOTE | 2025-04-19 09:44 | W.PN.HOSP.TC ---
Today's Communication/Plan
-
decrease in Lasix to daily
Home O2 assessment - might need O2 during daytime
discussed in details with son
Assessment / Plan
Assessment / Plan
80yo F with PMHx of CAD s/p PCI x2 (most recent one in Dec 2024), HFpEF, anxiety, DM, PMR on chronic prednisone, GERD, HTN, Afib on Xarelto, COPD on nocturnal O2 2L came with worsenign SOB on excertion with minimal effort for past couple of days.
ALso noted appr 10lbs weight gain and LE swelling with abdominal bloating for past week. Patient not very reliable in her PMHx - confused her stent to be placed in , but in fact was in Dec. Her doctor also doubled dose of Furosemide as per
patient - not so long ago, after her stent placement, but still she is confusing the timeline. Does not follow her daily weight at home. Cardiology contributed CHF exacerbation to poor rhythm control. Achieved appropriate diuresis
A/P:
#Acute on chronic HFpEF
#CAD stable
#Afib, unspecified
Lasix, daily weight, follow Cr and electrolytes
Cardiology to follow
telemetry
Echo
cont rate control, Xarelto, Plavix, statin
Animal Trapper interrogated PPM: was not having any atrial fibrillation prior to ~2 weeks ago, then started having more frequent A-fib
Srikanth advised - CM for cost
#Hyperkalemia (Resolved)
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
Unclear Cr baseline
FeNA 8.8% - intrinsic, but on Lasix
#Transaminitis
#Elevated alk.phos
most likely hepatic congestion - improving with diuresis
US RUQ: cholelithiasis, 3mm gallbladder polyp - no follow up advised
follow LFT
#Chronic anemia
macrocytic
check b12, folate
#2.6 cm rounded isoechoic focus inferior to the right hepatic lobe
2/2 Possible lobular hepatic parenchyma or adjacent right adrenal gland lesion (adrenal adenoma?)
Patient without recent weight loss
CT abd/pelvis - outpatient due to current SONAL. Discussed in details with patient and family
#Asymptomatic bacteriuria
urine WBC WNL - no symptoms, no indication to treat
#COPD, not in exacerbation
now with SOB on minimal exertion
Home O2 assessment before d/c
cont nocturnal O2
cont bronchodilators
#DM type 2 with nephropathy
AccuCheck, cont insulin basal, add SS, DM diet
#Anxiety
#Hypothyroidism
#Essential HTN
#PMR
#GERD
cont home meds
TSH WNL
DVt ppx on Xarelto
Full code
I have spent at least 58min reviewing chart, test reslts, communication with consultants, family and providing direct patient care
Anticipated Discharge: 24 - 48 hours
Subjective/Interval History
-
Date of Service: April 19, 2025
Objective Data
-
Labs:
Laboratory Results
04/19/25
06:34
WBC 10.1
Hgb 9.8 L
Hct 30.4 L
Plt Count 311
Sodium 141
Potassium 3.8
Chloride 106
Carbon Dioxide 29
BUN 53 H
Creatinine 1.6 H
Glucose 119 H
Calcium 9.2
Total Bilirubin 0.7
AST 29
ALT 79 H
Alkaline Phosphatase 123
Vital Signs:
Vital Signs
Temp Pulse Resp BP Pulse Ox
97.8 F 70 14 115/58 96
04/19/25 07:00 04/19/25 08:24 04/19/25 07:31 04/19/25 08:24 04/19/25 07:31
I&O
04/18/25 04/19/25 04/20/25
06:59 06:59 06:59
Intake Total 660 / 660
Output Total 1000 / 1000
Balance -1000 / -1000 660 / 660
Review of Systems
-
History Source: Patient
All other systems: Reviewed and negative
Physical Exam
-
General: No Apparent Distress and Comfortable
HEENT: Normocephalic
Respiratory: Clear to Auscultation
GI: Soft, Nontender and Nondistended
Musculoskeletal: No Clubbing, No Cyanosis and No Edema
Neuro: Awake, Alert, Oriented and AO x 3
Psych: Calm
[2025-04-19] MEDS: LASIX 80 MG IV (09:47)
[2025-04-19 11:00] VITALS: BP 122/62
[2025-04-19 11:26] LABS: Glucose - Point of Care 229 mg/dl (70-99)
[2025-04-19] MEDS: NON-FORMULARY ITEM 16 UNIT SC ×2 (11:54→17:09)
[2025-04-19 15:05] VITALS: BP 141/66
[2025-04-19 16:28] LABS: Glucose - Point of Care 240 mg/dl (70-99)
[2025-04-19] MEDS: TYLENOL 650 MG PO (16:36)
[2025-04-19] MEDS: XARELTO 10 MG PO (17:10)
[2025-04-19 19:30] VITALS: BP 107/56
[2025-04-19 21:21] LABS: Glucose - Point of Care 249 mg/dl (70-99)
[2025-04-19] MEDS: LANTUS 0.22 UNITS SC (22:19)
[2025-04-19 23:00] VITALS: BP 113/60
[2025-04-20 03:00] VITALS: BP 117/64
[2025-04-20] MEDS: SYNTHROID 75 MCG PO (05:40)
[2025-04-20 05:54] VITALS: BMI 32.5
[2025-04-20 06:38] LABS: ALT (SGPT) 63 U/L (0-35); AST (SGOT) 26 U/L (14-36); Albumin 3.6 g/dl (3.5-5.0); Alkaline Phosphatase 120 U/L (38-126); Blood Urea Nitrogen 53 mg/dl (7-17); Calcium 9.3 mg/dl (8.4-10.2); Carbon Dioxide 29 mmol/L (22-30); Chloride 105 mmol/L (98-107); Estimated Creatinine Clearance 28 ml/min; Glucose 148 mg/dl (70-99); Magnesium 2.2 mg/dl (1.6-2.3); Potassium 3.6 mmol/L (3.5-5.1); Sodium 140 mmol/L (135-145); Total Bilirubin 0.6 mg/dl (0.2-1.3)
[2025-04-20] MEDS: SYMBICORT 160/4.5 MCG INHALER 2 PUFF INH ×2 (07:31→19:33)
[2025-04-20 07:58] LABS: Glucose - Point of Care 122 mg/dl (70-99)
[2025-04-20 08:00] VITALS: BP 119/54
[2025-04-20] MEDS: NITROSTAT (SUBLINGUAL) 0.4 MG SL (09:22)
[2025-04-20] MEDS: NON-FORMULARY ITEM 10 UNIT SC ×2 (09:35→12:49)
--- NOTE | 2025-04-20 09:37 | W.PN.HOSP.TC ---
Today's Communication/Plan
-
Cardio to reassess, serial troponin
cont Lasix
CM for 24h O2
Assessment / Plan
Assessment / Plan
80yo F with PMHx of CAD s/p PCI x2 (most recent one in Dec 2024), HFpEF, anxiety, DM, PMR on chronic prednisone, GERD, HTN, Afib on Xarelto, COPD on nocturnal O2 2L came with worsenign SOB on excertion with minimal effort for past couple of days.
ALso noted appr 10lbs weight gain and LE swelling with abdominal bloating for past week. Patient not very reliable in her PMHx - confused her stent to be placed in , but in fact was in Dec. Her doctor also doubled dose of Furosemide as per
patient - not so long ago, after her stent placement, but still she is confusing the timeline. Does not follow her daily weight at home. Cardiology contributed CHF exacerbation to poor rhythm control. Achieved appropriate diuresis. Developed L sided
chest pain relieved by SL nitro on 04/20/25
Patient is in need of oxygen at 2 liters/minute via nasal cannula continuously due to pulse oximetry of 85% on room air at ambulation. Previously O2 used only at night due to nocturnal desat. Oxygen will help to improve hypoxemia. Patient is mobile
within the home. DuoNeb therapy has been tried and is ineffective in treating hypoxemia related symptoms. Oxygen is needed to improve symptoms.
A/P:
#Acute on chronic HFpEF
#CAD stable
#Afib, unspecified
#Chest pain, concern for cardiac
Nitro SL, EKG during chest pain showed change in T wave polarization diffusely. Follow serial troponin, cont Plavix
Developed
Lasix, daily weight, follow Cr and electrolytes
Cardiology to follow
telemetry
Echo 04/18/25: LV ejection fraction is 70-75%. Normal regional wall motion, severe LA dilation, moderate MS, moderate TR with severe pulmonary HTN 2/2 COPD and LA failure, nit no change since Nov 2024
cont rate control, Xarelto, Plavix, statin
[employer] interrogated PPM: was not having any atrial fibrillation prior to ~2 weeks ago, then started having more frequent A-fib
[place] advised - CM for cost
#Hyperkalemia (Resolved)
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
Unclear Cr baseline
FeNA 8.8% - intrinsic, but on Lasix
#Transaminitis
#Elevated alk.phos
most likely hepatic congestion - improving with diuresis
US RUQ: cholelithiasis, 3mm gallbladder polyp - no follow up advised
follow LFT
#Chronic anemia
macrocytic
check b12, folate
#2.6 cm rounded isoechoic focus inferior to the right hepatic lobe
2/2 Possible lobular hepatic parenchyma or adjacent right adrenal gland lesion (adrenal adenoma?)
Patient without recent weight loss
CT abd/pelvis - outpatient due to current SONAL. Discussed in details with patient and family
#Asymptomatic bacteriuria
urine WBC WNL - no symptoms, no indication to treat
#COPD, not in exacerbation
#Chronic hypoxic respiratory failure
now with SOB on minimal exertion, needs home O2 24h now due to desat on ambulation - CM informed
cont nocturnal O2
cont bronchodilators
#DM type 2 with nephropathy
AccuCheck, cont insulin basal, add SS, DM diet
#Anxiety
#Hypothyroidism
#Essential HTN
#PMR
#GERD
cont home meds
TSH WNL
DVt ppx on Xarelto
Full code
I have spent at least 59min reviewing chart, test reslts, communication with consultants, family and providing direct patient care
Anticipated Discharge: 24 - 48 hours
Subjective/Interval History
-
Date of Service: April 20, 2025
Objective Data
-
Labs:
Laboratory Results
04/20/25
05:12
Sodium 140
Potassium 3.6
Chloride 105
Carbon Dioxide 29
BUN 53 H
Creatinine 1.6 H
Glucose 148 H
Calcium 9.3
Total Bilirubin 0.6
AST 26
ALT 63 H
Alkaline Phosphatase 120
Vital Signs:
Vital Signs
Temp Pulse Resp BP Pulse Ox
97.7 F 73 19 106/57 99
04/20/25 08:00 04/20/25 08:00 04/20/25 08:00 04/20/25 09:27 04/20/25 08:00
I&O
04/19/25 04/20/25 04/21/25
06:59 06:59 06:59
Intake Total 660 / 660 420 / 420
Balance 660 / 660 420 / 420
Review of Systems
-
History Source: Patient
All other systems: Reviewed and negative
Cardiac: Reports Chest Pain (L )
Physical Exam
-
General: No Apparent Distress
HEENT: Normocephalic
Respiratory: Clear to Auscultation
Cardiac: Regular Rhythm
GI: Soft, Nontender and Nondistended
Musculoskeletal: No Clubbing, No Cyanosis and No Edema
Neuro: Awake, Alert, Oriented and AO x 3
Psych: Calm
[2025-04-20] MEDS: LASIX 80 MG IV (09:42)
[2025-04-20] MEDS: TOPROL XL 100 MG PO ×2 (09:46→20:34)
[2025-04-20] MEDS: LEXAPRO 20 MG PO (09:46)
[2025-04-20] MEDS: PROTONIX 40 MG PO (09:47)
[2025-04-20] MEDS: PLAVIX 75 MG PO (09:47)
[2025-04-20] MEDS: DELTASONE 10 MG PO (09:47)
[2025-04-20 10:31] LABS: Troponin I 0.028 ng/ml
--- NOTE | 2025-04-20 10:51 | W.PN.CD ---
Today's Communication / Plan
-
Continue IV diuresis
Discuss rhythm control strategy with outpatient commercial stripper tomorrow
Trend troponins
Impression / Plan
-
I/P: 80F with CAD, atrial fibrillation (type unknown), HFpEF, GERD, hypertension, and type 2 diabetes mellitus who presented to the emergency department the chief complaint of shortness of breath.
Outpatient commercial stripper: Dr. Warner
HFpEF, acute on chronic
- Severe exacerbation requiring IV diuresis and monitoring for drug toxicity. Suspect exacerbation is due to more frequent paroxysmal atrial fibrillation (started 2 weeks ago based on device interrogation)
- TTE 04/18/2025: LVEF 70-75%, biatrial enlargement, moderate MS, mild/mod MR, mod TR, PASP 65-70 mmHg.
- Dry weight is likely less than 174 pounds (LVEDP 25 mmHg at that weight in December 2024)
- Continue furosemide 80 mg IV daily
- She does not feel that her furosemide 40 mg home dose is making her void frequently. Will plan to switch to Bumex on dc
- Case management to brannon SGLT2. No MRA given hyperkalemia on admission.
- Trend daily weight, I/O, and BMP with diuresis
- HF education
Chest pain
- Substernal chest pain at rest on 6/15 AM. ECG paced. Pain resolved with SL nitro. Unclear if cardiac.
- Troponin 0.028. Serial troponins pending.
- Continue to monitor for recurrence of symptoms
Atrial fibrillation, type unknown
- Based on device interrogation this admission, she was not having any atrial fibrillation prior to ~2 weeks ago, then started having more frequent A-fib. Likely caused her CHF exacerbation.
- Currently rate controlled
- Will discuss rhythm control strategy with her outpatient commercial stripper
- Oral Anticoagulation: Xarelto 10 mg daily (subtherapeutic dose, will discuss with outpatient cardiology)
- [id number]: Score at least 7 (Heart failure, HTN, age 75 or more, Diabetes Mellitus, Vascular disease, female gender)
CAD
- IVUS guided PCI to the LAD 11/2024
- On clopidogrel and Xarelto
Hypertension
- BP stable, follow with diuresis
AMADA on CKD, follow with diuresis
Mitral stenosis, moderate, peak/mean gradients 11/16 mmHg, update echocardiogram
Pacemaker, [employer], followed by primary commercial stripper
Dyslipidemia, on inclisiran in the outpatient setting
Type 2 diabetes mellitus, on insulin, per primary service
COPD, no acute exacerbation,
Anemia, chronic, she denies blood loss
Subjective: She experienced substernal chest pain this morning. [place] like 'gas in her chest'. ECG paced. She was given SL nitro and it resolved.
Physical Exam
Vital Signs/Labs
Vital Signs
Temp Pulse Resp BP Pulse Ox
97.7 F 72 19 106/57 96
04/20/25 08:00 04/20/25 09:42 04/20/25 08:00 04/20/25 09:42 04/20/25 09:30
04/19/25 04/20/25 04/21/25
06:59 06:59 06:59
Actual Weight 184 lb 7 oz 183 lb 9 oz
04/19/25 06:34
04/20/25 05:12
Magnesium 2.2 mg/dl (1.6-2.3) 04/20/25 05:12
Triglycerides 107 mg/dl (10-149) 04/18/25 06:39
LDL Cholesterol, Calc 53 mg/dl 04/18/25 06:39
VLDL Cholesterol, Calc 21 mg/dl (0-30) 04/18/25 06:39
HDL Cholesterol 51 mg/dl 04/18/25 06:39
04/17/25
21:28
[id number] Pept 8210
LAB Results
04/17/25 04/20/25
21:28 09:48
Troponin I 0.016 0.028
Physical Exam
Constitutional: No acute distress and Comfortable
Cardiovascular: Rhythm & rate is regular, Pedal edema is absent, S1S2 is normal and Murmur/rub/gallop absent
Respiratory: Respiratory effort normal and Lungs clear to auscul.
Neuro/Psych: AO x 3
Data Reviewed
-
Date of Service: April 20, 2025
Medical Decision Making: Reviewed Test Results, Independent Historian Assessment, Test Interpretation and Review of Case with other Provider
EKG: Tracing Personally Visualized and interpreted
Echo: Report Reviewed by me
Labs: Labs Reviewed by me
--- NOTE | 2025-04-20 11:08 | CM ---
Chart reviewed and plan is for patient to return to home when stable, patient has nocturnal oxygen but will need continuous oxygen at discharge, patient has [employer] for home oxygen, and they will need a referral and testing along with physician note,
referral sent to [facility] visiting nurses.
Plan; Home with continuous oxygen from [employer], and [facility] Visiting nurses.
Girma
[phone]
[2025-04-20 11:52] LABS: Glucose - Point of Care 135 mg/dl (70-99)
[2025-04-20 12:00] VITALS: BP 114/59
[2025-04-20 16:00] VITALS: BP 116/57
[2025-04-20 16:45] LABS: Glucose - Point of Care 170 mg/dl (70-99)
[2025-04-20] MEDS: NON-FORMULARY ITEM 14 UNIT SC (17:30)
[2025-04-20] MEDS: XARELTO 10 MG PO (17:31)
[2025-04-20 20:28] VITALS: BP 118/84
[2025-04-20 20:39] LABS: Glucose - Point of Care 172 mg/dl (70-99)
[2025-04-20] MEDS: LANTUS 0.22 UNITS SC (20:44)
[2025-04-20 21:13] LABS: Troponin I 0.024 ng/ml
[2025-04-20 23:58] VITALS: BP 113/53
[2025-04-21] VITALS (7 sets, daily range): BP systolic 104–129; BP diastolic 54–67; PULSE 71; O2SAT 98; BMI 32.3
[2025-04-21] MEDS: SYNTHROID 75 MCG PO (06:05)
[2025-04-21 07:07] LABS: % Basophils 0.5 % (0-2); % Eosinophils 3.1 % (0-6); % Immature Granulocytes 0.5 % (0-0.5); % Lymphocytes 22.8 % (20.5-51.1); % Monocytes 8.9 % (1.7-9.3); % Neutrophils 64.2 % (42.2-75.2); Absolute Eosinophils 0.3 10^3/uL (0-0.7); Absolute Monocytes 0.8 10^3/uL (0.1-0.6); Absolute Neutrophils 5.7 10^3/uL (1.4-6.5); Hematocrit 31.8 % (37.0-47.0); Hemoglobin 10.2 g/dL (12.0-16.0); Mean Corp Hgb Conc. 32.1 g/dL (33.0-37.0); Mean Corpuscular Hgb 32.4 pg (27.0-31.0); Mean Platelet Volume 8.7 fL (7.4-10.4); Nucleated Red Blood Cells % 0 %; Platelet Count 309 10^3/uL (130-400); Red Blood Cell Count 3.15 10^6/uL (4.20-5.40); White Blood Cell Count 8.8 10^3/uL (4.8-10.8)
[2025-04-21] MEDS: SYMBICORT 160/4.5 MCG INHALER 2 PUFF INH ×2 (07:27→19:57)
[2025-04-21 07:41] LABS: ALT (SGPT) 48 U/L (0-35); AST (SGOT) 24 U/L (14-36); Albumin 3.4 g/dl (3.5-5.0); Alkaline Phosphatase 93 U/L (38-126); Blood Urea Nitrogen 46 mg/dl (7-17); Calcium 9.6 mg/dl (8.4-10.2); Carbon Dioxide 32 mmol/L (22-30); Chloride 105 mmol/L (98-107); Estimated Creatinine Clearance 30 ml/min; Glucose 75 mg/dl (70-99); Potassium 3.5 mmol/L (3.5-5.1); Sodium 144 mmol/L (135-145); Total Bilirubin 0.7 mg/dl (0.2-1.3); eGFR 34.79
--- NOTE | 2025-04-21 08:08 | W.PN.CD ---
Today's Communication / Plan
-
- Amiodarone 400 mg BID for a week then 200 mg QD
- Xarelto to 15 mg QD
- Continue diuresis and replace lytes as needed. K is low but with CKD, will watch.
Impression / Plan
-
I/P: 80F with CAD, atrial fibrillation (type unknown), HFpEF, GERD, hypertension, and type 2 diabetes mellitus who presented to the emergency department the chief complaint of shortness of breath.
Outpatient educational resource coordinator: Dr. Warner
HFpEF, acute on chronic
- Severe exacerbation requiring IV diuresis and monitoring for drug toxicity. Suspect exacerbation is due to more frequent paroxysmal atrial fibrillation (started 2 weeks ago based on device interrogation)
- TTE 04/18/2025: LVEF 70-75%, biatrial enlargement, moderate MS, mild/mod MR, mod TR, PASP 65-70 mmHg.
- Dry weight is likely less than 174 pounds (LVEDP 25 mmHg at that weight in December 2024)
- Continue furosemide 80 mg IV daily
- She does not feel that her furosemide 40 mg home dose is making her void frequently. Will plan to switch to Bumex on dc
- Case management to brannon SGLT2. No MRA given hyperkalemia on admission.
- Trend daily weight, I/O, and BMP with diuresis
- HF education
Atrial fibrillation,
- Paroxysmal on device interrogation - dual chamber PPM - [employer]
- Based on device interrogation this admission, she was not having any atrial fibrillation prior to ~2 weeks ago, then started having more frequent A-fib. Likely caused her CHF exacerbation.
- Currently in sinus with frequent PAT and PAF
- With highly frequent arrhythmia despite high pacing rate would need antiarrhythmic drugs.
- Not a candidate for class Ia (CAD) and class III (CKD). Amiodarone is still a good option for her.
- Amiodarone for short duration to suppress her AF and ectopy - likely cause of her CHF exacerbation.
- Plan for ablation in next 3-4 months and outpatient evaluation to come off the Amiodarone.
- Oral Anticoagulation: Xarelto 10 mg daily (subtherapeutic dose, will discuss with outpatient cardiology) - likely due to CKD. Would prefer 15 mg QD.
- [id number]: Score at least 7 (Heart failure, HTN, age 75 or more, Diabetes Mellitus, Vascular disease, female gender)
CAD
- IVUS guided PCI to the LAD 11/2024
- On clopidogrel and Xarelto
Chest pain
- Substernal chest pain at rest on 04/20 AM. ECG paced. Pain resolved with SL nitro. Unclear if cardiac.
- Could be related to frequent ectopy / AF.
- Troponin 0.028. Serial troponins stable.
- Continue to monitor for recurrence of symptoms
Hypertension
- BP stable, follow with diuresis
AMADA on CKD, follow with diuresis
Mitral stenosis, moderate, peak/mean gradients 11/16 mmHg, update echocardiogram
Pacemaker, [employer], followed by primary educational resource coordinator
Dyslipidemia, on inclisiran in the outpatient setting
Type 2 diabetes mellitus, on insulin, per primary service
COPD, no acute exacerbation,
Anemia, chronic, she denies blood loss
Subjective: She feels she is getting sicker over the past few weeks. Denies any chest pain this AM.
Physical Exam
Vital Signs/Labs
Vital Signs
Temp Pulse Resp BP Pulse Ox
97.8 F 81 14 129/62 98
04/21/25 03:30 04/21/25 07:30 04/21/25 07:30 04/21/25 03:30 04/21/25 07:30
04/20/25 04/21/25 04/22/25
06:59 06:59 06:59
Actual Weight 83.263 kg 82.696 kg
04/21/25 06:27
04/21/25 06:27
Magnesium 2.2 mg/dl (1.6-2.3) 04/20/25 05:12
Triglycerides 107 mg/dl (10-149) 04/18/25 06:39
LDL Cholesterol, Calc 53 mg/dl 04/18/25 06:39
VLDL Cholesterol, Calc 21 mg/dl (0-30) 04/18/25 06:39
HDL Cholesterol 51 mg/dl 04/18/25 06:39
04/17/25
21:28
[id number]-[id number] Pept 8210
LAB Results
04/20/25 04/20/25 04/20/25
09:48 12:02 20:44
Troponin I 0.028 0.030 0.024
Physical Exam
Constitutional: No acute distress and Comfortable
EENT: Anicteric and Moist mucous membranes
Cardiovascular: Rhythm/rate is irregular, Pedal edema present, JVD present and Systolic murmur present
Respiratory: Crackles Present and Rhonchi Present
GI: Soft, Non tender and Normal bowel sounds
Neuro/Psych: Alert, Oriented and AO x 3
Other: Cardiac Device Site
Data Reviewed
-
Date of Service: April 21, 2025
Medical Decision Making: Reviewed Test Results, Test Interpretation and Review of Case with other Provider
EKG: Tracing Personally Visualized and interpreted
Echo: Report Reviewed by me
X-Ray/CT/US/MRI/NUC/PET: Image Personally Visualized and interpreted
Medical Tests (PFT, Pathology etc): Discussed with Physician and Discussed with Patient
Labs: Labs Reviewed by me
Old Records: Reviewed
--- NOTE | 2025-04-21 08:48 | W.PN.HOSP.TC ---
Today's Communication/Plan
-
IV diuresis
Assessment / Plan
Assessment / Plan
Physical exam:
General: Acutely ill
HEENT: Normocephalic, Atraumatic and Moist Mucous Membranes
Respiratory: Clear to Auscultation; Negative Wheezes, Rales or Rhonchi
Cardiac: Irregular rate and rhythm, and S1/S2
GI: Soft, Nontender and Nondistended
Musculoskeletal: No Clubbing, No Cyanosis. Bilateral lower extremity
Neuro: Awake, Alert and Oriented, no gross neurological deficit
Psych: Calm
A/P:
Acute on chronic HFpEF:
Continue IV diuresis, Lasix 80 mg IV daily
On beta-ebonie
Updated son over the phone today and we discussed the plan of care and possible discharge disposition.
Paroxysmal atrial fibrillation:
Continue rate control, metoprolol succinate 100 mg p.o. twice a day
Started on antiarrhythmic, amiodarone 400 mg p.o. twice a day today
Continue anticoagulation, Xarelto 15 mg p.o. daily
AMADA on CKD:
Avoid nephrotoxic
Monitor renal function
Hyperkalemia:
Resolved
CAD:
Continue antiplatelets and anticoagulation beta-blockers
Diabetes mellitus type 2:
Insulin sliding scale
Continue Lantus 22 units every evening
COPD:
Not in exacerbation
Continue Symbicort
Mitral stenosis:
Serial echo
Pacemaker:
Functioning well
Hyperlipidemia:
On inclisiran as outpatient
Liver lesion:
Follow-up as outpatient
Hypothyroidism:
Continue thyroid replacement
DVT prophylaxis:
Xarelto
CODE STATUS:
Full code
Total time spent on today's encounter was 50 minutes which included time spent in counseling the patient/family regarding diagnosis and treatment plan as listed above, goals of care, and symptom management. Case was discussed with nursing staff,
specialists, and care coordinators/case management. All labs and imaging personally reviewed by me. Remainder the time spent in detailed review of previous records, lab data, imaging, and other medical provider documentation.
Anticipated Discharge: 24 - 48 hours
Subjective/Interval History
-
Date of Service: April 21, 2025
Patient still having some shortness of breath but improved overall. No chest pain.
Objective Data
-
Labs:
Laboratory Results
04/21/25
06:27
WBC 8.8
Hgb 10.2 L
Hct 31.8 L
Plt Count 309
Sodium 144
Potassium 3.5
Chloride 105
Carbon Dioxide 32 H
BUN 46 H
Creatinine 1.5 H
Glucose 75
Calcium 9.6
Total Bilirubin 0.7
AST 24
ALT 48 H
Alkaline Phosphatase 93
Vital Signs:
Vital Signs
Temp Pulse Resp BP Pulse Ox
97.8 F 81 14 129/62 98
04/21/25 03:30 04/21/25 07:30 04/21/25 07:30 04/21/25 03:30 04/21/25 07:30
I&O
04/20/25 04/21/25 04/22/25
06:59 06:59 06:59
Intake Total 420 / 420 780 / 780
Balance 420 / 420 780 / 780
[2025-04-21 09:04] LABS: Glucose - Point of Care 77 mg/dl (70-99)
[2025-04-21] MEDS: TOPROL XL 100 MG PO ×2 (09:07→20:20)
[2025-04-21] MEDS: PROTONIX 40 MG PO (09:07)
[2025-04-21] MEDS: PACERONE 400 MG PO ×2 (09:08→20:20)
[2025-04-21] MEDS: DELTASONE 10 MG PO (09:08)
[2025-04-21] MEDS: PLAVIX 75 MG PO (09:08)
[2025-04-21] MEDS: LEXAPRO 20 MG PO (09:09)
[2025-04-21] MEDS: LASIX 80 MG IV (09:09)
[2025-04-21] MEDS: FLUSH (NSS) 1 FLUSH IV (09:10)
[2025-04-21] MEDS: NON-FORMULARY ITEM 10 UNIT SC (10:02)
[2025-04-21 12:54] LABS: Glucose - Point of Care 292 mg/dl (70-99)
[2025-04-21] MEDS: NON-FORMULARY ITEM 18 UNIT SC (13:26)
[2025-04-21 17:36] LABS: Glucose - Point of Care 245 mg/dl (70-99)
[2025-04-21] MEDS: NON-FORMULARY ITEM 16 UNIT SC (18:14)
[2025-04-21] MEDS: XARELTO 15 MG PO (18:19)
[2025-04-21 21:16] LABS: Glucose - Point of Care 172 mg/dl (70-99)
[2025-04-21] MEDS: LANTUS 0.22 UNITS SC (21:24)
[2025-04-22 03:00] VITALS: BP 104/41
[2025-04-22] MEDS: SYNTHROID 75 MCG PO (05:19)
[2025-04-22 06:00] VITALS: BMI 32.3
[2025-04-22 07:00] VITALS: BP 119/63
[2025-04-22] MEDS: SYMBICORT 160/4.5 MCG INHALER 2 PUFF INH ×2 (07:34→19:42)
[2025-04-22 07:35] LABS: Glucose - Point of Care 101 mg/dl (70-99)
[2025-04-22] MEDS: LEXAPRO 20 MG PO (07:53)
[2025-04-22] MEDS: PROTONIX 40 MG PO (07:53)
[2025-04-22] MEDS: PLAVIX 75 MG PO (07:53)
[2025-04-22] MEDS: PACERONE 400 MG PO ×2 (07:54→19:33)
[2025-04-22] MEDS: DELTASONE 10 MG PO (07:54)
[2025-04-22] MEDS: TOPROL XL 100 MG PO ×2 (07:54→19:33)
[2025-04-22] MEDS: LASIX 80 MG IV ×2 (07:55→15:57)
[2025-04-22] MEDS: NON-FORMULARY ITEM 10 UNIT SC ×2 (08:28→12:42)
--- NOTE | 2025-04-22 08:40 | W.PN.CD ---
Today's Communication / Plan
-
- Dry weight is likely less than 174 pounds (LVEDP 25 mmHg at that weight in December 2024); was 182 pounds yesterday--today's weight is pending.
- Will increase furosemide to 80 mg IV BID; patient takes alternating doses of Lasix 40 mg PO BID and Lasix 80 mg daily at home.
- Recommend transitioning patient to Lasix home dose of 80 mg PO BID, possibly starting tomorrow.
- Would hold off on using a more potent agent (Bumex) until patient is maxed out on Lasix.
- Will start Farxiga.
- As per EP Cardiology: Amiodarone 400 mg BID x 1 week, the n200 mg daily.
- Plan for ablation in next 3-4 months and outpatient evaluation to come off the Amiodarone.
Impression / Plan
-
I/P: 80F with CAD, atrial fibrillation (type unknown), HFpEF, GERD, hypertension, and type 2 diabetes mellitus who presented to the emergency department the chief complaint of shortness of breath.
Outpatient shoe dyer: Dr. Warner
HFpEF, acute on chronic
- Severe exacerbation requiring IV diuresis and monitoring for drug toxicity. Suspect exacerbation is due to more frequent paroxysmal atrial fibrillation (started 2 weeks ago based on device interrogation)
- TTE 04/18/2025: LVEF 70-75%, biatrial enlargement, moderate MS, mild/mod MR, mod TR, PASP 65-70 mmHg.
- Dry weight is likely less than 174 pounds (LVEDP 25 mmHg at that weight in December 2024); was 182 pounds yesterday--today's weight is pending.
- Will increase furosemide to 80 mg IV BID; patient takes alternating doses of Lasix 40 mg PO BID and Lasix 80 mg daily at home.
- Recommend transitioning patient to Lasix home dose of 80 mg PO BID, possibly starting tomorrow.
- Would hold off on using a more potent agent (Bumex) until patient is maxed out on Lasix.
- Will start Farxiga.
- Continue to trend daily weight, I/O, and BMP with diuresis.
- HF education.
Atrial fibrillation,
- Paroxysmal on device interrogation - dual chamber PPM - [employer]
- Based on device interrogation this admission, she was not having any atrial fibrillation prior to ~2 weeks ago, then started having more frequent A-fib. Likely caused her CHF exacerbation.
- Currently in sinus with frequent PAT and PAF
- With highly frequent arrhythmia despite high pacing rate would need antiarrhythmic drugs.
- Not a candidate for class Ia (CAD) and class III (CKD).
- As per EP Cardiology: Amiodarone 400 mg BID x 1 week, the n200 mg daily.
- Plan for ablation in next 3-4 months and outpatient evaluation to come off the Amiodarone.
- Continue Xarelto 15 mg daily.
- [id number]: Score at least 7 (Heart failure, HTN, age 75 or more, Diabetes Mellitus, Vascular disease, female gender)
Pulmonary hypertension.
- Estimated PAP 65-70 mmHg.
- Diuresis as above.
CAD
- IVUS guided PCI to the LAD 11/2024
- On clopidogrel and Xarelto
Hypertension
- BP stable, follow with diuresis
AMADA on CKD, follow with diuresis
Mitral stenosis, moderate, peak/mean gradients 11/16 mmHg, update echocardiogram
Pacemaker, [employer], followed by primary shoe dyer
Dyslipidemia, on inclisiran in the outpatient setting
Type 2 diabetes mellitus, on insulin, per primary service
COPD, no acute exacerbation,
Anemia, chronic, she denies blood loss
Subjective:
No major events overnight. Shortness of breath improving.
Physical Exam
Vital Signs/Labs
Vital Signs
Temp Pulse Resp BP Pulse Ox
97.7 F 70 14 119/63 98
04/22/25 07:00 04/22/25 07:36 04/22/25 07:36 04/22/25 07:00 04/22/25 07:36
04/21/25 04/22/25 04/23/25
06:59 06:59 06:59
Actual Weight 82.696 kg 82.752 kg
04/21/25 06:27
04/21/25 06:27
Magnesium 2.2 mg/dl (1.6-2.3) 04/20/25 05:12
Triglycerides 107 mg/dl (10-149) 04/18/25 06:39
LDL Cholesterol, Calc 53 mg/dl 04/18/25 06:39
VLDL Cholesterol, Calc 21 mg/dl (0-30) 04/18/25 06:39
HDL Cholesterol 51 mg/dl 04/18/25 06:39
04/17/25
21:28
[id number] Pept 8210
LAB Results
04/20/25 04/20/25 04/20/25
09:48 12:02 20:44
Troponin I 0.028 0.030 0.024
Physical Exam
Constitutional: No acute distress and Comfortable
EENT: Anicteric
Cardiovascular: Rhythm & rate is regular, Systolic murmur absent, Pedal edema present (trace) and S1S2 is normal
Respiratory: Respiratory effort normal and Rhonchi Present (mild bibasilar)
GI: Soft
Neuro/Psych: AO x 3
Other: Skin (warm, dry, intact)
Data Reviewed
-
Date of Service: April 22, 2025
EKG: Tracing Personally Visualized and interpreted (Paced)
Echo: Tracing Personally Visualized and interpreted (EF 70-75%; moderate mitral stenosis, mild to moderate mitral regurgitation; moderate tricuspid regurgitation, estimated PAP 65-70 mmHg)
Labs: Labs Reviewed by me
--- NOTE | 2025-04-22 08:46 | W.PN.HOSP.TC ---
Today's Communication/Plan
-
IV diuresis
Assessment / Plan
Assessment / Plan
Physical exam:
General: Acutely ill
HEENT: Normocephalic, Atraumatic and Moist Mucous Membranes
Respiratory: Clear to Auscultation; Negative Wheezes, Rales or Rhonchi
Cardiac: Irregular rate and rhythm, and S1/S2
GI: Soft, Nontender and Nondistended
Musculoskeletal: No Clubbing, No Cyanosis. Bilateral lower extremity
Neuro: Awake, Alert and Oriented, no gross neurological deficit
Psych: Calm
A/P:
Acute on chronic HFpEF:
Continue IV diuresis, increase Lasix 80 mg IV to twice a day
Weight is about the same today
On beta-ebonie
Updated son over the phone yesterday
Discussed with cardiology today and recommended continue diuresis while in the hospital
Paroxysmal atrial fibrillation:
Continue rate control, metoprolol succinate 100 mg p.o. twice a day
Started on antiarrhythmic, amiodarone 400 mg p.o. twice a day for 1 week and then 200 mg p.o. daily
Continue anticoagulation, Xarelto 15 mg p.o. daily
Plan for possible application as outpatient over the next 3 to 4 months
AMADA on CKD:
Avoid nephrotoxic
Monitor renal function
Hyperkalemia:
Resolved
CAD:
Continue antiplatelets and anticoagulation beta-blockers
Diabetes mellitus type 2:
Insulin sliding scale
Continue Lantus 22 units every evening
COPD:
Not in exacerbation
Continue Symbicort
Mitral stenosis:
Serial echo
Pacemaker:
Functioning well
Hyperlipidemia:
On inclisiran as outpatient
Liver lesion:
Follow-up as outpatient
Hypothyroidism:
Continue thyroid replacement
DVT prophylaxis:
Xarelto
CODE STATUS:
Full code
Total time spent on today's encounter was 50 minutes which included time spent in counseling the patient/family regarding diagnosis and treatment plan as listed above, goals of care, and symptom management. Case was discussed with nursing staff,
specialists, and care coordinators/case management. All labs and imaging personally reviewed by me. Remainder the time spent in detailed review of previous records, lab data, imaging, and other medical provider documentation.
Anticipated Discharge: 24 - 48 hours
Subjective/Interval History
-
Date of Service: April 22, 2025
Patient still short of breath and having peripheral edema.
Objective Data
-
Vital Signs:
Vital Signs
Temp Pulse Resp BP Pulse Ox
97.7 F 70 14 119/63 98
04/22/25 07:00 04/22/25 07:36 04/22/25 07:36 04/22/25 07:00 04/22/25 07:36
I&O
04/21/25 04/22/25 04/23/25
06:59 06:59 06:59
Intake Total 780 / 780 240 / 240
Output Total 300 / 300
Balance 780 / 780 -60 / -60
[2025-04-22] MEDS: FARXIGA 10 MG PO (09:15)
[2025-04-22 11:00] VITALS: BP 110/62
[2025-04-22 11:14] LABS: Blood Urea Nitrogen 42 mg/dl (7-17); Calcium 9.7 mg/dl (8.4-10.2); Carbon Dioxide 33 mmol/L (22-30); Chloride 101 mmol/L (98-107); Estimated Creatinine Clearance 28 ml/min; Glucose 134 mg/dl (70-99); Sodium 142 mmol/L (135-145)
[2025-04-22 11:38] LABS: Glucose - Point of Care 133 mg/dl (70-99)
[2025-04-22 16:00] VITALS: BP 116/60
[2025-04-22 16:43] LABS: Glucose - Point of Care 225 mg/dl (70-99)
[2025-04-22] MEDS: NON-FORMULARY ITEM 16 UNIT SC (17:31)
[2025-04-22] MEDS: XARELTO 15 MG PO (17:32)
[2025-04-22 19:31] VITALS: BP 118/61
[2025-04-22 20:50] LABS: Glucose - Point of Care 188 mg/dl (70-99)
[2025-04-22] MEDS: LANTUS 0.22 UNITS SC (21:44)
[2025-04-22 23:08] VITALS: BP 109/52
[2025-04-23 04:19] VITALS: BP 112/58
[2025-04-23] MEDS: SYNTHROID 75 MCG PO (05:50)
[2025-04-23 06:00] VITALS: BMI 31.9
--- NOTE | 2025-04-23 06:20 | PTCARENOTE ---
There was a [employer] Downtime on 04/23/2025 from 0100 to 04/23/2025 at 0415. Downtime documentation of patient's care, including medication administrations, has been reconciled in the electronic record per guidelines. Refer to the
patient's paper chart under the miscellaneous tab to see printed paper medication records and downtime forms.
[2025-04-23 07:00] VITALS: BP 113/59
[2025-04-23 07:50] LABS: Glucose - Point of Care 84 mg/dl (70-99)
--- NOTE | 2025-04-23 08:00 | W.PN.CD ---
Today's Communication / Plan
-
- Dry weight is likely less than 174 pounds (LVEDP 25 mmHg at that weight in December 2024); was 180 pounds yesterday--today's weight is pending.
- Will transition patient to Lasix 80 mg PO BID today, which should be new home dose.
- Continue Farxiga.
- Continue Amiodarone 400 mg BID x 1 week, then 200 mg daily.
- Plan for ablation in next 3-4 months and outpatient evaluation to come off the Amiodarone.
- Can follow-up with primary Pipe Puller (Dr. Warner) and EP Cardiology (Dr. Garces) as an outpatient.
Impression / Plan
-
I/P: 80F with CAD, atrial fibrillation (type unknown), HFpEF, GERD, hypertension, and type 2 diabetes mellitus who presented to the emergency department the chief complaint of shortness of breath.
Outpatient chronic disease manager: Dr. Warner
HFpEF, acute on chronic
- Severe exacerbation requiring IV diuresis and monitoring for drug toxicity. Suspect exacerbation is due to more frequent paroxysmal atrial fibrillation (started 2 weeks ago based on device interrogation)
- TTE 04/18/2025: LVEF 70-75%, biatrial enlargement, moderate MS, mild/mod MR, mod TR, PASP 65-70 mmHg.
- Dry weight is likely less than 174 pounds (LVEDP 25 mmHg at that weight in December 2024); was 180 pounds yesterday--today's weight is pending.
- Will transition patient to Lasix 80 mg PO BID today, which should be new home dose.
- Continue Farxiga.
- Can follow-up with primary Pipe Puller (Dr. Warner) and EP Cardiology (Dr. Garces) as an outpatient.
Atrial fibrillation,
- Paroxysmal on device interrogation - dual chamber PPM - [employer]
- Based on device interrogation this admission, she was not having any atrial fibrillation prior to ~2 weeks ago, then started having more frequent A-fib. Likely caused her CHF exacerbation.
- Currently in sinus with frequent PAT and PAF
- With highly frequent arrhythmia despite high pacing rate would need antiarrhythmic drugs.
- Not a candidate for class Ia (CAD) and class III (CKD).
- Continue Amiodarone 400 mg BID x 1 week, then 200 mg daily.
- Plan for ablation in next 3-4 months and outpatient evaluation to come off the Amiodarone.
- Continue Xarelto 15 mg daily.
- [id number]: Score at least 7 (Heart failure, HTN, age 75 or more, Diabetes Mellitus, Vascular disease, female gender)
Pulmonary hypertension.
- Estimated PAP 65-70 mmHg.
- Lasix dosing as above.
CAD
- IVUS guided PCI to the LAD 11/2024
- On clopidogrel and Xarelto
Hypertension
- BP stable, follow with diuresis
AMADA on CKD, follow with diuresis
Mitral stenosis, moderate, peak/mean gradients 11/16 mmHg, update echocardiogram
Pacemaker, [employer], followed by primary chronic disease manager
Dyslipidemia, on inclisiran in the outpatient setting
Type 2 diabetes mellitus, on insulin, per primary service
COPD, no acute exacerbation,
Anemia, chronic, she denies blood loss
Subjective:
No major events overnight. No cardiac complaints this a.m.
Physical Exam
Vital Signs/Labs
Vital Signs
Temp Pulse Resp BP Pulse Ox
98.3 F 72 16 112/58 99
04/23/25 04:19 04/23/25 04:19 04/23/25 04:19 04/23/25 04:19 04/23/25 04:19
04/22/25 04/23/25 04/24/25
06:59 06:59 06:59
Actual Weight 82.752 kg 81.732 kg
04/21/25 06:27
Magnesium 2.2 mg/dl (1.6-2.3) 04/20/25 05:12
Triglycerides 107 mg/dl (10-149) 04/18/25 06:39
LDL Cholesterol, Calc 53 mg/dl 04/18/25 06:39
VLDL Cholesterol, Calc 21 mg/dl (0-30) 04/18/25 06:39
HDL Cholesterol 51 mg/dl 04/18/25 06:39
04/17/25
21:28
[id number] Pept 8210
LAB Results
04/20/25 04/20/25 04/20/25
09:48 12:02 20:44
Troponin I 0.028 0.030 0.024
Physical Exam
Constitutional: No acute distress and Comfortable
EENT: Anicteric
Cardiovascular: Rhythm & rate is regular, Pedal edema is absent, Systolic murmur absent and S1S2 is normal
Respiratory: Respiratory effort normal and Rhonchi Present (Mild bibasilar)
GI: Soft
Neuro/Psych: AO x 3
Other: Skin (Warm, dry, intact)
Data Reviewed
-
Date of Service: April 23, 2025
EKG: Tracing Personally Visualized and interpreted (Telemetry: Atrial fibrillation, V paced.)
Labs: Labs Reviewed by me
[2025-04-23] MEDS: LASIX 80 MG PO ×2 (08:07→15:40)
[2025-04-23] MEDS: PLAVIX 75 MG PO (08:08)
[2025-04-23] MEDS: FARXIGA 10 MG PO (08:09)
[2025-04-23] MEDS: PROTONIX 40 MG PO (08:09)
[2025-04-23] MEDS: LEXAPRO 20 MG PO (08:09)
[2025-04-23] MEDS: DELTASONE 10 MG PO (08:09)
[2025-04-23] MEDS: TOPROL XL 100 MG PO (08:09)
[2025-04-23] MEDS: PACERONE 400 MG PO (08:09)
[2025-04-23 08:15] LABS: Blood Urea Nitrogen 40 mg/dl (7-17); Calcium 9.3 mg/dl (8.4-10.2); Carbon Dioxide 36 mmol/L (22-30); Chloride 103 mmol/L (98-107); Estimated Creatinine Clearance 28 ml/min; Glucose 72 mg/dl (70-99); Potassium 3.2 mmol/L (3.5-5.1); Sodium 143 mmol/L (135-145)
[2025-04-23] MEDS: SYMBICORT 160/4.5 MCG INHALER 2 PUFF INH (08:15)
[2025-04-23] MEDS: NON-FORMULARY ITEM 10 UNIT SC ×2 (09:07→12:56)
--- NOTE | 2025-04-23 09:20 | W.PN.HOSP.TC ---
Today's Communication/Plan
-
Discharge planning today
Assessment / Plan
Assessment / Plan
Physical exam:
General: No acute distress. Chronically ill
HEENT: Normocephalic, Atraumatic and Moist Mucous Membranes
Respiratory: Clear to Auscultation; Negative Wheezes, Rales or Rhonchi
Cardiac: Irregular rate and rhythm, and S1/S2
GI: Soft, Nontender and Nondistended
Musculoskeletal: No Clubbing, No Cyanosis. Bilateral lower extremity
Neuro: Awake, Alert and Oriented, no gross neurological deficit
Psych: Calm
A/P:
Acute on chronic HFpEF:
Change IV Lasix to oral Lasix 80 mg twice a day
On beta-ebonie
Updated son over the phone prior
Patient feels better with oxygen-->It appears that she does not qualify since her pulse ox does not drop today. Will obtain follow-up chest x-ray today. Will reassess home oxygen needs or not.
Plan to discharge today
Paroxysmal atrial fibrillation:
Continue rate control, metoprolol succinate 100 mg p.o. twice a day
Started on antiarrhythmic, amiodarone 400 mg p.o. twice a day for 1 week and then 200 mg p.o. daily
Continue anticoagulation, Xarelto 15 mg p.o. daily
Plan for possible application as outpatient over the next 3 to 4 months
AMADA on CKD:
Avoid nephrotoxic
Monitor renal function
Hyperkalemia:
Resolved
CAD:
Continue antiplatelets and anticoagulation beta-blockers
Diabetes mellitus type 2:
Insulin sliding scale
Continue Lantus 22 units every evening
COPD:
Not in exacerbation
Continue Symbicort
Mitral stenosis:
Serial echo
Pacemaker:
Functioning well
Hyperlipidemia:
On inclisiran as outpatient
Liver lesion:
Follow-up as outpatient
Hypothyroidism:
Continue thyroid replacement
DVT prophylaxis:
Xarelto
CODE STATUS:
Full code
Anticipated Discharge: Today
Subjective/Interval History
-
Date of Service: April 23, 2025
Patient doing well overall. Afebrile
Objective Data
-
Labs:
Laboratory Results
04/23/25
06:42
Sodium 143
Potassium 3.2 L
Chloride 103
Carbon Dioxide 36 H
BUN 40 H
Creatinine 1.6 H
Glucose 72
Calcium 9.3
Vital Signs:
Vital Signs
Temp Pulse Resp BP Pulse Ox
98 F 83 18 113/59 98
04/23/25 07:00 04/23/25 07:00 04/23/25 07:00 04/23/25 07:00 04/23/25 07:15
I&O
04/22/25 04/23/25 04/24/25
06:59 06:59 06:59
Intake Total 240 / 240 240 / 240
Output Total 300 / 300
Balance -60 / -60 240 / 240
[2025-04-23] MEDS: KCL 40 MEQ PO (09:31)
[2025-04-23 11:33] LABS: Glucose - Point of Care 148 mg/dl (70-99)
[2025-04-23 11:41] VITALS: BP 115/58
--- NOTE | 2025-04-23 11:48 | CM ---
Addendum entered by Jackelyn Plummer 04/23/25 13:36:
Home O2 assessment completed, discussed w/ RT, patient did not require O2 while ambulating today. Patient is not requiring continuous O2, will continue O2 at night only
Updated [facility]
Original Note:
Chart reviewed. Per hospitalist, patient will d/c today
Patient currently on 2L O2, will need 24 hour continuous. Patient get home O2 supplied by [employer]
Spoke w/ [facility] informing of 24 hr O2 needs. Will need updated home O2 assessment done as it needs to be within 48 hours of d/c. Last one done on 04/19. Portable will be delivered to patient bedside.
TT RT requesting new O2 assessment
CM will send script and updated assessment to [employer] once completed
Updated patient bedside
Patient is current w/ [facility] and will resume services at d/c. Per patient she doesn't think she needs PT as per recommended. Spoke w/ Stefani/[facility] who will have patient assessed once she is home. Updated clinicals sent to [facility] in [facility].
IMM verbally reviewed, copy provided, copy on chart. Patient's son will transport home today
Girma

Plan: Home, [facility] w/ [facility] and O2 supplied by [employer]
[2025-04-23 12:10] VITALS: PULSE 77; O2SAT 98
--- NOTE | 2025-04-23 14:12 | W.DCSUMMARY ---
Discharge Summary
Discharge Data
Date of Admission: 04/18/25
Date of Discharge: 04/23/25
Total time spent discharging patient (in min): 37
-
Pending Results: No
Hospital Course
Patient 80 years old female history of CAD, CHF, A-fib came into the hospital with shortness of breath and found to be in heart failure exacerbation. Patient was treated with aggressive IV diuresis. Cardiology consulted. It was felt that her
atrial fibrillation was also contributing to her CHF. She was started on antiarrhythmic with amiodarone. At some point it was discussed the possibility of switching diuretics to Bumex but patient responded to high doses of IV Lasix so cardiology
and recommended to switch to oral Lasix upon discharge on higher doses. Her weight trended down and she improved substantially. She had negative balance as well. She also had a follow-up chest x-ray upon discharge and that was improved. Patient
also was assessed for home oxygen but her pulse ox remained stable so she did not qualify for continuous home oxygen at home although she does uses nighttime oxygen and she will continue on that. Patient also participated with PT and recommended
home health. manager statistical will work on arrangements for home health upon discharge. Patient feels symptomatically improved. Cardiology has cleared her for discharge. She will be discharged in relatively stable condition today.
Discharge duration: 37 minutes
Discharge Plan
-
Patient Disposition: Home with Home Care
Discharge Diagnosis/Procedures: Acute on chronic diastolic congestive failure. Paroxysmal atrial fibrillation. Acute kidney injury. Hyperkalemia.
Diet: Low Cholesterol, 2 Gram Sodium, Diabetic, Carb Controlled and Restrict fluids to 64 oz
Activity: As tolerated
Blood Work: Please PCP to order CBC, BMP within 1 week
Specialty Instructions: Weigh Daily- Call MD for wt gain/loss 3 lbs overnight/5 lbs in 1 week
Instructions: *CBC Heart Failure Instructions
Referrals:
Jose Barakat MD [Family Provider, Internal Medicine] - in less than 1 week
Ludmila Garces MD [Active, Cardiology] - 06/25/25 2:40 pm
Referral Note: ablation consultation
Additional Discharge Medication Instructions: Take amiodarone 400 mg twice a day for 7 days and then decrease to 200 mg once a day thereafter. 2 separate prescriptions have been sent to your pharmacy, 1 prescription is for twice a day dose and the
other prescription is a once a day dose.
Prescriptions:
New
amiodarone 200 mg Tablet
400 mg PO BID 7 Days Qty: 28 0RF
furosemide 80 mg Tablet
80 mg PO BID@0800,1600 30 Days Qty: 60 0RF
Xarelto 15 mg Tablet
15 mg PO QPM 30 Days Qty: 30 0RF
dapagliflozin propanediol 10 mg Tablet
10 mg PO DAILY 30 Days Qty: 30 0RF
amiodarone 200 mg tablet
200 mg PO DAILY Qty: 30 0RF
Rx Instructions:
Start medication on 05/01/2025 after the twice a day regimen of same.
Continued
alprazolam 0.25 mg Tablet
0.25 mg PO DAILYPRN PRN (Reason: anxiety)
albuterol sulfate 90 mcg/actuation Hfa Aerosol Inhaler
2 puff INHALATION Q6HPRN PRN (Reason: sob/ wheeze)
prednisone 10 mg Tablet
10 mg PO DAILY
metoprolol succinate [Toprol XL] 100 mg Tablet Extended Release 24 Hr
100 mg PO BID
levothyroxine [Synthroid] 75 mcg Tablet
75 mcg PO DAILY
pantoprazole 40 mg Tablet,Delayed Release (Dr/Ec)
40 mg PO DAILY
escitalopram oxalate 20 mg Tablet
20 mg PO DAILY
insulin degludec [Tresiba FlexTouch U-100] 100 unit/mL (3 mL) Insulin Pen
22 unit SC HS
inclisiran 284 mg/1.5 mL Syringe
284 mg SC [id number]
clopidogrel 75 mg Tablet
75 mg PO DAILY Qty: 90 5RF
Trelegy Ellipta 200-62.5-25 mcg Blister With Device
1 inh INHALATION DAILY
insulin lispro [Admelog SoloStar U-100 Insulin] 100 unit/mL Insulin Pen
1 unit SC .SLIDINGSCALE
Patient Comments:
<150, give 10 units subQ
151-200, takes 14 units subQ
201-250, takes 16 units subQ
251-300, takes 18 units subQ
301-350, takes 20 units subQ
351-400, takes 22 units subQ
401-450, takes 24 units subQ
451or more, call doctor
Rx Instructions:
SLIDING SCALE TAKES WITH MEALS (CAN NOT TAKE NOVOLOG)
<150, give 10 units subQ
151-200, takes 14 units subQ
201-250, takes 16 units subQ
251-300, takes 18 units subQ
301-350, takes 20 units subQ
351-400, takes 22 units subQ
401-450, takes 24 units subQ
451or more, call doctor
Discontinued
furosemide 40 mg Tablet
40 mg PO BID
lisinopril 10 mg Tablet
10 mg PO QPM
Xarelto 10 mg tablet
10 mg PO QPM Qty: 30 5RF
Discharge Orders:
Discharge Patient (As Directed); Ordered 04/23/25
Ordered By: Pelon Lopez
Discharge Date and Time
Discharge Date/Time: 04/23/25 16:59
Print Language: TELUGU
[2025-04-23 15:37] VITALS: BP 117/61
--- NOTE | 2025-04-24 09:47 | W.HF.CON ---
Heart Failure
- LV Function
Left ventricular function study result: LV Ejection fraction >/= 50%
Ejection Fraction Percentage: 70-75
- ARNI
Patient already on ARNI: No
Heart Failure ARNI Not Indicated: LV Ejection Fraction >/= 40%
- ACEI/ARB
Patient already on ACEI/ARB: No
Heart Failure ACEI/ARB Not Indicated: LV Ejection Fraction > 40%
- Beta Godwin
Patient already on Evidence Based Beta Godwin: Yes
- Mineralocorticord Receptor Antagonist
Patient already on MRA: No
Heart Failure MRA Not Indicated: LV Ejection Fraction > 40%
- SGLT-2 Inhibitor
Patient already on SGLT-2 Inhibitor: Yes
- Afib Anticoagulation
Patient already on Anticoagulation for Afib: Yes
- NYHA CHF Classification
NYHA CHF Classification Level: Class III - Symptoms w/ min exertion, interferes w/ nml daily activity
- ACC/AHA Stage
ACC/AHA Stage: Stage C: Symptomatic Heart Failure
== END 2025-04-23 16:59 | disposition home health service (06) | DRG 291 ==
LOC: 4 WEST ACU 00:23
PROVIDERS: Emergency Medicine; Internal Medicine; ADMITTING PHYSICIAN Internal Medicine; ATTENDING PHYSICIAN Hospitalist; EMERGENCY PHYSICIAN Student in an Organized Health Care Education/Training Program; FAMILY PHYSICIAN Internal Medicine; OTHER PHYSICIAN Student in an Organized Health Care Education/Training Program
DX: I13.0 Hypertensive heart and chronic kidney disease with heart failure and stage 1 through stage 4 chronic kidney disease, or unspecified chronic kidney disease (principal); I50.33 Acute on chronic diastolic (congestive) heart failure; N17.9 Acute kidney failure, unspecified; J98.11 Atelectasis; I45.2 Bifascicular block; I48.0 Paroxysmal atrial fibrillation; E87.5 Hyperkalemia; E11.22 Type 2 diabetes mellitus with diabetic chronic kidney disease; N18.9 Chronic kidney disease, unspecified; I25.10 Atherosclerotic heart disease of native coronary artery without angina pectoris; Z79.899 Other long term (current) drug therapy; Z79.4 Long term (current) use of insulin; Z79.890 Hormone replacement therapy; Z79.01 Long term (current) use of anticoagulants; Z87.891 Personal history of nicotine dependence; Z88.2 Allergy status to sulfonamides; Z88.8 Allergy status to other drugs, medicaments and biological substances; F41.9 Anxiety disorder, unspecified; Z79.02 Long term (current) use of antithrombotics/antiplatelets; Z95.0 Presence of cardiac pacemaker; Z95.5 Presence of coronary angioplasty implant and graft; Z99.81 Dependence on supplemental oxygen; E78.00 Pure hypercholesterolemia, unspecified; I25.2 Old myocardial infarction; K21.9 Gastro-esophageal reflux disease without esophagitis; M35.3 Polymyalgia rheumatica
CPT/HCPCS: 71045; 71046; 76700; 80048; 80053; 80061; 81003; 81015; 82248; 82570; 82607; 82746; 82947; 82962; 83735; 83880; 84300; 84443; 84484; 85025; 87086; 93005; 93306; 94640; 96374; 97116; 97162; 97530; 99285

== ENCOUNTER 2025-04-24 08:33 | Inpatient (IN) | payer OTHER, SELFPAY ==
[2025-04-24] VITALS (10 sets, daily range): BP systolic 99–124; BP diastolic 39–62; BMI 33.3; BMI 32.3
[2025-04-24 01:04] LABS: % Basophils 0.4 % (0-2); % Eosinophils 0.6 % (0-6); % Immature Granulocytes 0.5 % (0-0.5); % Lymphocytes 5.1 % (20.5-51.1); % Monocytes 7.2 % (1.7-9.3); % Neutrophils 86.2 % (42.2-75.2); Absolute Basophils 0.1 10^3/uL (0-0.2); Absolute Eosinophils 0.1 10^3/uL (0-0.7); Absolute Immature Granulocytes 0.1 10^3/uL (0-0.05); Absolute Lymphocytes 0.9 10^3/uL (1.2-3.4); Absolute Monocytes 1.2 10^3/uL (0.1-0.6); Absolute Neutrophils 14.6 10^3/uL (1.4-6.5); Hematocrit 35.7 % (37.0-47.0); Hemoglobin 11.9 g/dL (12.0-16.0); Mean Corp Hgb Conc. 33.3 g/dL (33.0-37.0); Mean Corpuscular Volume 98.9 fL (81.0-99.0); Mean Platelet Volume 8.7 fL (7.4-10.4); Nucleated Red Blood Cells % 0 %; Platelet Count 354 10^3/uL (130-400); Red Blood Cell Count 3.61 10^6/uL (4.20-5.40); Red Cell Dist. Width 14.8 % (11.5-14.5)
[2025-04-24 02:45] LABS: ALT (SGPT) 36 U/L (0-35); AST (SGOT) 32 U/L (14-36); Albumin 4.3 g/dl (3.5-5.0); Alkaline Phosphatase 97 U/L (38-126); Blood Urea Nitrogen 47 mg/dl (7-17); Calcium 9.9 mg/dl (8.4-10.2); Carbon Dioxide 29 mmol/L (22-30); Chloride 101 mmol/L (98-107); Estimated Creatinine Clearance 24 ml/min; Glucose 105 mg/dl (70-99); Lipase 45 U/L (23-300); Potassium 3.4 mmol/L (3.5-5.1); Sodium 140 mmol/L (135-145); Total Bilirubin 1.1 mg/dl (0.2-1.3); Total Protein 7.2 g/dl (6.3-8.2); eGFR 27.96
--- NOTE | 2025-04-24 04:25 | ED.GENMED ---
History of Present Illness
General
Chief Complaint: Abdominal Symptoms
Source: patient
Exam Limitations: none
Time Seen by Provider: 04/24/25 04:16
Nursing documentation reviewed up to this point in time: agreed with
History of Present Illness
History of Present Illness:
80-year-old female with a past medical history of CHF, COPD, coronary artery disease, insulin-dependent diabetes, anxiety, depression, who presents emergency department today with concerns of nausea, vomiting, and abdominal pain. Patient reports
that she was discharged today for a CHF exacerbation was started on amiodarone. Patient reports that when she got home, she started to have sudden onset of nausea and vomiting. She later had diarrhea and noticed discomfort in the left side of her
abdomen. She denies any fevers or chills. She subsequently noticed that she became short of breath as well but denies any chest pain. She denies any swelling in her lower extremities. She denies any coughing up of blood or mucus. She denies any
dizziness, lightheadedness, or fainting episodes.
Review of Systems
Review of Systems
All Other Systems: ROS reviewed and negative except as documented in HPI and ROS
Phy Exam
Physical Exam
Physical Exam:
General: Patient is well appearing and in no acute distress; non-toxic
Skin: Warm and dry, no rashes or lesions
Head: Normocephalic, atraumatic
Eyes: Sclera non-icteric. EOMs intact.
Cardiac: Regular rate and rhythm, no murmurs
Peripheral Vascular: No lower extremity swelling or edema
Pulm: Normal respiratory effort, scattered coarse rales
Abdomen: Left sided abdominal tenderness to palpation
Neuro: CN II-XII intact, no focal neurologic deficits.
Psychiatric: Appropriate mood and affect.
Course
Orders/Labs/Results
Orders:
Orders
04/24/25 00:57
Complete Blood Count/With Diff Urgent
04/24/25 01:39
Comprehensive Metabolic Panel Urgent
Comment: REDRAW
Lipase Urgent
Comment: REDRAW
04/24/25 05:33
CR Chest - 2 Views Urgent
Comment:
Reason For Exam: shortness of breath
04/24/25 Breakfast
NPO
Allow oral meds: Yes
Allow clear liquids: No
04/24/25 06:08
CT Abd/pel Without Iv Or Oral Urgent
Comment:
Reason For Exam: left sided abdominal pain
04/24/25 06:54
Ondansetron Injectable [Zofran] 4 mg IV NOW STA
04/24/25 07:17
CefTRIAXone [Rocephin] 1,000 mg IV NOW STA
MetroNIDAZOLE [Flagyl] 500 mg PO NOW STA
04/24/25 07:21
Electrocardiogram (*1) Urgent
Reason for Study: Shortness of Breath
EKG- Treatment ONCE
04/24/25 07:38
NT-proBNP Urgent
Troponin I Urgent
04/24/25 07:52
Admit/Transfer Patient As Directed
Co-Sign Provider:
Level of Care: Inpatient admission
Assign to:: Telemetry
Physician / Group: Dr Lopez
Diagnosis: Diverticulitis
Reason for Telemetry: Arrhythmia
Date to Stop Telemetry: 04/27/25
Time to Stop Telemetry: 11:00
Reason for Hospitalization: Diverticulitis
Expected length of stay greater than two midnights?: Yes
ELOS- Estimated Length of Stay in days: 2
I certify the patient meets the requirements for IP care: Yes
PRN Pain Medication Management As Directed
May give lesser potent ordered pain med per pt: Yes
preference::
Protocol:: Medication orders for pain may be administered in a
manner that supports deferring to patient preference
when the pt is:
- Requesting an ordered lesser potent pain medication.
Least to most potent pain medications are defined
as: acetaminophen < NSAID < tramadol < opioids
(morphine, oxycodone, hydromorphone).
- Requesting a lesser dose of the same medication IF
ORDERED.
- Requesting a less intrusive route of administration
if both routes are prescribed by the provider (PO <
IV).
04/24/25 07:53
Code Status As Directed
Resuscitation Status: Full Code
04/24/25 07:56
Morphine Sulfate 2 mg IV Q4HPRN PRN
Ondansetron Injectable [Zofran] 4 mg IV Q6HPRN PRN
04/24/25 07:58
Dextrose 50%-Water [Dextrose 50% Syringe] 12.5 grams IV [id number] PRN
Glucagon [GlucaGen] 1 mg IM PRN PRN
Ipratropium/Albuterol Sulfate [Duoneb] 3 ml INH R Q4HPRN PRN
Bedside Glucose Monitoring As Directed
Frequency: Q6H
Additional Instructions:: Change to q6h if pt on TPN, tube feeding or not eating
04/24/25 07:59
Potassium Chloride [KCl] 20 meq 0.9% Sodium Chloride 150 ml [Nss] 150 ml IV NOW
04/24/25 08:00
Furosemide [Lasix] 80 mg IV BID AT 0800,1600
04/24/25 08:56
Acetaminophen [Tylenol] 650 mg PO Q4HPRN PRN
Bisacodyl [Dulcolax] 10 mg RECTAL [id number] PRN
Docusate W/Senna [Senokot-S] 1 tablet PO BIDPRN PRN
Polyethylene Glycol Powder [Miralax] 17 grams PO DAILYPRN PRN
04/24/25 08:56
Activity As Directed
Activity Level: Out of Bed-Early Mobility
Pneumatic Compression Sleeves As Directed
Type: Knee high
Vital Signs As Directed
Frequency: Per unit guidelines
DX Deep Vein Thrombosis Video Routine
04/24/25 11:30
Insulin Aspart Corrective Mod [Novolog Flexpen-Moderate Resistance] See Protocol SC AC
04/24/25 16:00
MetroNIDAZOLE 500 MG/100 ML [Flagyl 500 mg] 100 ml IV Q8H
04/25/25 06:00
Basic Metabolic Panel IN AM
Complete Blood Count/With Diff IN AM
Magnesium IN AM
04/25/25 08:00
CefTRIAXone [Rocephin] 1,000 mg IV Q24H
04/27/25 11:00
DC Protocol for Telemetry ONCE
Abnormal Lab Results
04/24/25 04/24/25 04/24/25
00:57 01:39 07:38
WBC 17.0 H 10^3/uL
(4.8-10.8)
RBC 3.61 L 10^6/uL
(4.20-5.40)
Hgb 11.9 L g/dL
(12.0-16.0)
Hct 35.7 L %
(37.0-47.0)
MCH 33.0 H pg
(27.0-31.0)
RDW 14.8 H %
(11.5-14.5)
Abs Immat Gran (auto) 0.1 H 10^3/uL
(0-0.05)
Absolute Neuts (auto) 14.6 H 10^3/uL
(1.4-6.5)
Absolute Lymphs (auto) 0.9 L 10^3/uL
(1.2-3.4)
Absolute Monos (auto) 1.2 H 10^3/uL
(0.1-0.6)
Neutrophils % 86.2 H %
(42.2-75.2)
Lymphocytes % 5.1 L %
(20.5-51.1)
Potassium 3.4 L mmol/L
(3.5-5.1)
BUN 47 H mg/dl
(7-17)
Creatinine 1.8 H mg/dL
(0.6-1.0)
Glucose 105 H mg/dl
(70-99)
ALT 36 H U/L
(0-35)
Troponin I 0.040 H* ng/ml
04/24/25 00:57
04/24/25 01:39
Vital Signs
Initial and Last Documented VS:
Initial Vital Signs
Temp Pulse Resp Pulse Ox
98.1 F 70 14 87
04/24/25 00:25 04/24/25 00:25 04/24/25 00:25 04/24/25 00:25
Last Documented Vital Signs
Temp Pulse Resp BP Pulse Ox
99.0 F 71 18 120/62 97
04/24/25 09:03 04/24/25 09:03 04/24/25 09:03 04/24/25 10:23 04/24/25 09:03
MDM/Problems Addressed
Differential Diagnosis Includes:
ddx include CHF exacerbation, pneumonia, diverticulitis, gastroenteritis
MDM/Problems Addressed:
80-year-old female with a past medical history of CHF, COPD, coronary artery disease, insulin-dependent diabetes, anxiety, depression, who presents emergency department today with concerns of nausea, vomiting, and abdominal pain. She also has
shortness of breath. She was discharged yesterday for shortness of breath. On PE, she is hypoxic on RA requiring 2L to maintain her sats. She also has left sided ab pain. Case reviewed with attending. Will admit for persistent CHF as well as
diverticulitis management.
*Pulse Oximetry
SaO2: 87
Oxygen Mode of Delivery: Room air
Patient hypoxic: yes
*Critical Care Note
Total Time (30-74mins, 75-104mins- exclusive of procedures): Not Applicable
ED Attending Note
-
Portions of this chart may have been created with voice recognition software.� Occasional wrong word or��sound alike� substitutions may have occurred due to the inherent limitations of voice recognition software.
Discharge Plan
Departure
Patient Disposition: Admit
Date of Disposition: 04/24/25
Time of Disposition: 07:23
Admit to: Med/Surg
Presentation/result/management discussed w/ accepting MD/DO: Hospitalist
Patient with high blood pressure during this ER visit?: Yes
Condition: Fair
Discharge Problem:
Diverticulitis, Acute CHF
Interventions
Interventions:
*Risk Screen - Suicide Last Done: 04/24/25 00:23
*General Assessment Last Done: 04/24/25 00:23
*Neglect/Abuse Screening Last Done: 04/24/25 00:23
*ED- Fall Risk Assessment Last Done: 04/24/25 00:23
*ED COVID-19 Vaccine History Last Done: 04/24/25 00:23
*Nursing Disposition Last Done: 04/24/25 09:04
SL-Dyfpjj-Iawusraxbb Assessment Last Done: 04/24/25 00:27
Discharge Date and Time
Discharge Date/Time: 04/24/25 09:04
[2025-04-24] MEDS: ZOFRAN 4 MG IV (07:16)
--- NOTE | 2025-04-24 07:52 | HPS.HSE ---
Family Physician
-
Family Physician: Jose Barakat
Chief Complaint
-
Abd pain
History of Present Illness
Patient 80 years old female with multiple comorbidities who was recently in the hospital for heart failure exacerbation came into the hospital with abdominal pain nausea and vomiting. Patient had heart failure exacerbation and was diuresed
intravenously and switched to oral yesterday and sent home but she started complaining of sudden onset of abdominal pain, moderate to severe intensity in the left lower quadrant associated with persistent nausea and nonbilious vomiting. No fevers
or chills. He had some loose stools. She also does notice that he still having some dyspnea on exertion. No chest pain. Denies melena hematochezia or hematemesis. Patient had prior episodes of diverticulitis in the past. Patient also had
colonoscopy about 5 years ago per family report. In the ER CT scan shows evidence of diverticulitis. She was referred to hospitalist service for further evaluation.
Medical History
Past Medical History
Past Medical History: Reports Other
Additional Past Medical History:
CAD status post OR, multiple PCI and stents
CHF with preserved EF, last EF 25% with last cath showing elevated low ventricle end-diastolic pressure
Hypertension
Nonrheumatic tricuspid insufficiency
COPD not on home O2
Past Surgical History: Reports Other
Social History
Tobacco: Former Smoker
Alcohol: None
Drug: None
Living: With Family
Family History
Family History: Not pertinent
Allergies / Home Medications
Allergies reflects when Allergies were last updated in [facility].
Home Medications with original date entered in [facility]
Allergy/Medication List:
Allergies
Allergy/AdvReac Type Severity Reaction Status Date / Time
insulin aspart (From Novolog Allergy Rash Verified 04/24/25 00:26
U-100 Insulin aspart)
sulfur hexafluoride Allergy Itching Verified 04/24/25 00:26
microspheres (From [facility]) eyes and
throat
Home Medications
albuterol sulfate 90 mcg/actuation aerosol inhaler 2 puff inhalation R Q6HPRN PRN sob/ wheeze 11/12/24
alprazolam 0.25 mg tablet 0.25 mg PO DAILYPRN PRN anxiety 11/12/24
escitalopram oxalate 20 mg tablet 20 mg PO DAILY Mental Health/Anxiety 11/12/24
inclisiran 284 mg/1.5 mL subcutaneous syringe 284 mg SC [id number] Autoimmune Disorder 11/12/24
insulin degludec 100 unit/mL (3 mL) subcutaneous pen (Tresiba FlexTouch U-100 insulin) 22 unit SC HS Diabetes 11/12/24
levothyroxine 75 mcg tablet (Synthroid) 75 mcg PO DAILY Thyroid 11/12/24
metoprolol succinate 100 mg tablet,extended release 24 hr (Toprol XL) 100 mg PO BID Heart Disease/Condition 11/12/24
pantoprazole 40 mg tablet,delayed release 40 mg PO DAILY Gastrointestinal Issue 11/12/24
prednisone 10 mg tablet 10 mg PO DAILY Anti-Inflammatory 11/12/24
clopidogrel 75 mg tablet 75 mg PO DAILY Blood Clot Prevention/Tx #90 tabs 11/14/24
fluticasone fur. 200 mcg-umeclid 62.5 mcg-vilant 25 mcg inhalat.powder (Trelegy Ellipta) 1 inh inhalation R DAILY Diabetes 12/13/24
insulin lispro 100 unit/mL subcutaneous pen (Admelog SoloStar U-100 Insulin lispro) 10 sliding scale dose SC AC Diabetes 04/17/25
dapagliflozin propanediol 10 mg tablet 10 mg PO DAILY 30 days #30 tabs 04/23/25
furosemide 80 mg tablet 80 mg PO BID@0800,1600 30 days #60 tabs 04/23/25
rivaroxaban 15 mg tablet (Xarelto) 15 mg PO QPM 30 days #30 tabs 04/23/25
amiodarone 200 mg tablet 400 mg PO DIRECTED 04/24/25
Review of Systems
-
A 12 point ROS was completed and negative except as noted: Yes
Physical Exam
Vital Signs
Vital Signs
Temp Pulse Resp BP Pulse Ox
98.1 F 70 14 108/39 98
04/24/25 00:25 04/24/25 07:16 04/24/25 07:16 04/24/25 06:00 04/24/25 06:00
Physical exam:
General: Acutely ill
HEENT: Normocephalic, Atraumatic and Moist Mucous Membranes
Respiratory: Clear to Auscultation; Negative Wheezes, Rales or Rhonchi
Cardiac: Regular Rhythm and S1/S2
GI: Soft, tender and Nondistended
Musculoskeletal: No Clubbing, No Cyanosis and No Edema
Neuro: Awake, Alert and Oriented, no neurodeficits
Psych: Calm
Physical Exam
General: Other
Laboratory Results
-
04/24/25 00:57
04/24/25 01:39
Laboratory Results
Total Bilirubin 1.1 mg/dl (0.2-1.3) 04/24/25 01:39
AST 32 U/L (14-36) 04/24/25 01:39
ALT 36 U/L (0-35) H 04/24/25 01:39
Alkaline Phosphatase 97 U/L (38-126) 04/24/25 01:39
Lipase 45 U/L (23-300) 04/24/25 01:39
Data Reviewed
-
Diagnostic Radiology: Image Personally Visualized and interpreted
CT Scan: Image Personally Visualized and interpreted
Lab Data: Labs Reviewed by me
Impression/Plan
-
IMPRESSION:
Patient 80 years old female with multiple comorbidities with recent heart failure exacerbation presented to the hospital with abdominal pain nausea vomiting and found to have acute diverticulitis adn hypoxia. Patient increased risk of morbidity
mortality therefore she will need to be treated accordingly.
PLAN:
Acute diverticulitis:
Keep n.p.o. but allow medication
Antibiotics, IV Rocephin and Flagyl
Seen CT scan of the abdomen and pelvis
WBC 17 (she is also on steroids)
Antiemetics with Tigan as needed due to elevated QTc
Monitor clinical course
Acute on chronic HFpEF:
IV Lasix 80 mg x 1 and back on Lasix 80 mg p.o. twice a day
On beta-ebonie
On amiodarone 400 mg twice a day day 2 out of 7 and thereafter 200 mg daily (cardiology okay with current QTc)
BNP elevated but decreased from prior
Chest x-ray pending
Cardiology consult
Hypoxia:
Patient noticed hypoxia when she came back
Son tells me when they tested her yesterday for home oxygen need she did not walk long distance and she also was wearing her oxygen all the time--> under those circumstances we need to repeat more accurately closer to discharge-->??
AMADA on CKD:
Avoid nephrotoxic
Monitor renal function
Paroxysmal atrial fibrillation:
Continue rate control, metoprolol succinate 100 mg p.o. twice a day
Started on antiarrhythmic, amiodarone 400 mg p.o. twice a day for 1 week and then 200 mg p.o. daily
Continue anticoagulation, Xarelto 15 mg p.o. daily
Plan for possible ablation as outpatient over the next 3 to 4 months
Hyperkalemia:
Resolved
CAD:
Continue antiplatelets and anticoagulation beta-blockers
Diabetes mellitus type 2:
Insulin sliding scale
Continue Lantus 22 units every evening
COPD:
Not in exacerbation
Continue Symbicort
Mitral stenosis:
Serial echo
Pacemaker:
Functioning well
Hyperlipidemia:
On inclisiran as outpatient
Liver lesion:
Follow-up as outpatient
Hypothyroidism:
Continue thyroid replacement
DVT prophylaxis:
Xarelto
CODE STATUS:
Full code
Time spent 75 minutes
[2025-04-24 08:23] LABS: NT-proBNP 5150 pg/ml
[2025-04-24] MEDS: FLAGYL 500 MG PO (08:37)
[2025-04-24] MEDS: ROCEPHIN 1000 MG IV (08:37)
[2025-04-24] MEDS: LASIX 80 MG IV (09:11)
[2025-04-24] MEDS: KCL 160 MEQ IV (09:12)
--- NOTE | 2025-04-24 10:09 | CON.CAR ---
Addendum entered and electronically signed by Davi Crawley MD 04/24/25 11:24:
I saw and examined the patient.
The SHEET METAL WORKER HELPER's note was reviewed and I agree with the note.
Comment: 80-year-old female (known to Dr. Warner, her primary feed miller), with CAD, atrial fibrillation (type unknown, on Xarelto), HFpEF, GERD, COPD (O2 at night), pacemaker, hypertension, and type 2 diabetes mellitus. She was recently here
for CHF exacerbation felt to likely be related to more frequent AFIB with RVR noted on device interrogation.
She was discharged yesterday and then last night, she developed vomiting and diarrhea, as well as chills. She is seen to have diverticulitis and is getting antibiotics. We are consulted due to concern for CHF since she was hypoxic on arrival.
However, weight is down and edema resolved per patient.
Her SOB is likely at baseline and she may need more oxygen?
Cont PO lasix
We will sign off. Please call with questions/concerns.
Original Note:
Consultation
Consultation Request
Date/Time Consultation Requested: 04/24/25 0901
Date/Time Consultation Performed: 04/24/25 1012
Requesting Provider: Dr. Lopez
Performing Provider: Liliana CASAS for Dr. Crawley
Reason for Consultation: CHF
Medical History
-
Chief Complaint: vomiting and diarrhea
History of Present Illness:
80-year-old female (known to Dr. Warner, her primary feed miller), with CAD, atrial fibrillation (type unknown, on Xarelto), HFpEF, GERD, COPD (O2 at night), pacemaker, hypertension, and type 2 diabetes mellitus. She was recently here for CHF
exacerbation felt to likely be related to more frequent AFIB with RVR noted on device interrogation. She was diuresed and started on SGLT2I. Lasix increased. Amiodarone initiated with plans for temp course and ablation in future. She was discharged
yesterday and then last night, she developed vomiting and diarrhea, as well as chills. She is seen to have diverticulitis and is getting antibiotics. We are consulted due to concern for CHF since she was hypoxic on arrival. However, weight is down
and edema resolved per patient. She does not appear obviously volume overloaded to my assessment, and is in no distress.
Past Medical History
Past Medical History: Arrhythmias (atrial fibrillation [type unknown]), CAD, CHF, COPD, GERD, HTN, Hypercholesterolemia and IDDM
Past Surgical History: Gynecological and Tonsilectomy
Social History
Tobacco: Former Smoker (2 PPD for 30 years. Quit 1989.)
Alcohol: None
Employment: Retired
Family History
Family History: Reviewed & Not Pertinent
Allergies / Home Medications
Allergy/AdvReac Type Severity Reaction Status Date / Time
insulin aspart (From Novolog Allergy Rash Verified 04/24/25 00:26
U-100 Insulin aspart)
sulfur hexafluoride Allergy Itching Verified 04/24/25 00:26
microspheres (From [facility]) eyes and
throat
�Medication �Instructions �Recorded �Confirmed �Type
albuterol sulfate 90 mcg/actuation 2 puff inhalation R Q6HPRN PRN 11/12/24 04/24/25 History
aerosol inhaler sob/ wheeze
alprazolam 0.25 mg tablet 0.25 mg PO DAILYPRN PRN anxiety 11/12/24 04/24/25 History
escitalopram oxalate 20 mg tablet 20 mg PO DAILY Mental 11/12/24 04/24/25 History
Health/Anxiety
inclisiran 284 mg/1.5 mL 284 mg SC [id number] Autoimmune 11/12/24 04/24/25 History
subcutaneous syringe Disorder
insulin degludec 100 unit/mL (3 22 unit SC HS Diabetes 11/12/24 04/24/25 History
mL) subcutaneous pen (Tresiba
FlexTouch U-100 insulin)
levothyroxine 75 mcg tablet 75 mcg PO DAILY Thyroid 11/12/24 04/24/25 History
(Synthroid)
metoprolol succinate 100 mg 100 mg PO BID Heart 11/12/24 04/24/25 History
tablet,extended release 24 hr Disease/Condition
(Toprol XL)
pantoprazole 40 mg tablet,delayed 40 mg PO DAILY Gastrointestinal 11/12/24 04/24/25 History
release Issue
prednisone 10 mg tablet 10 mg PO DAILY Anti-Inflammatory 11/12/24 04/24/25 History
clopidogrel 75 mg tablet 75 mg PO DAILY Blood Clot 11/14/24 04/24/25 Rx
Prevention/Tx #90 tabs
fluticasone fur. 200 mcg-umeclid 1 inh inhalation R DAILY Diabetes 12/13/24 04/24/25 History
62.5 mcg-vilant 25 mcg
inhalat.powder (Trelegy Ellipta)
insulin lispro 100 unit/mL 10 sliding scale dose SC AC 04/17/25 04/24/25 History
subcutaneous pen (Admelog SoloStar Diabetes
U-100 Insulin lispro)
dapagliflozin propanediol 10 mg 10 mg PO DAILY 30 days #30 tabs 04/23/25 04/24/25 Rx
tablet
furosemide 80 mg tablet 80 mg PO BID@0800,1600 30 days #60 04/23/25 04/24/25 Rx
tabs
rivaroxaban 15 mg tablet (Xarelto) 15 mg PO QPM 30 days #30 tabs 04/23/25 04/24/25 Rx
amiodarone 200 mg tablet 400 mg PO DIRECTED 04/24/25 04/24/25 History
Review of Systems
-
History Source: Patient
All other systems: Negative unless noted
Constitutional: Chills
Abdomen/GI: Abdominal Pain, Nausea, Vomiting and Diarrhea
Physical Exam
Vital Signs
Temp Pulse Resp BP Pulse Ox
99.0 F 71 18 120/62 97
04/24/25 09:03 04/24/25 09:03 04/24/25 09:03 04/24/25 09:11 04/24/25 09:03
Lab Results
04/24/25 00:57
04/24/25 01:39
Troponin I 0.040 ng/ml H* 04/24/25 07:38
Rcc-P-Hfuxofvxiha Pept 5150 pg/ml 04/24/25 07:38
Physical Exam
General: Well Developed, Well Nourished and No Apparent Distress
HEENT: Normocephalic and Anicteric
Respiratory: Clear and Non Labored Respirations
Cardiac: Regular Rhythm
Musculoskeletal: No Edema
Skin: Warm and Dry
Neuro: AO x 3
Psych: Calm
Impression / Plan
-
Diverticulitis:
-management per primary
-on abx
HFpEF: chronic
-Echo 04/18/25: LV ejection fraction is 70-75%. Severely dilated left atrium. Moderately dilated right atrium. Severe, dense posterior mitral annular calcification. Moderate mitral stenosis; mean gradient 5 mmHg. Mild to moderate mitral
regurgitation. Aortic sclerosis without stenosis. Moderate tricuspid regurgitation. Estimated pulmonary artery pressure of 65-70 mmHg.
-weight is down and edema resolved. Denies SOB. Wean O2 as tolerated. She got a dose of IV lasix this AM, but can now resume PO lasix. Follow volume. Mild hypokalemia is noted and being replaced by primary team.
-on Farxiga
Atrial fibrillation:
-now stable in SR
- Paroxysmal on device interrogation - dual chamber PPM - [facility]
- Based on device interrogation on recent admission, she was not having any atrial fibrillation prior to ~2 weeks ago, then started having more frequent A-fib. Likely caused her CHF exacerbation. Amiodarone was initiated with plan for amiodarone
400 mg BID x 1 week, then 200 mg daily. Plan for ablation future- has c/s with Dr. Garces in about 2 months. Currently stable in SR.
- Continue Xarelto 15 mg daily for [id number]: Score at least 7 (Heart failure, HTN, age 75 or more, Diabetes Mellitus, Vascular disease, female gender)
Pulmonary hypertension.
- Estimated PAP 65-70 mmHg.
- Lasix dosing as above.
CAD
- IVUS guided PCI to the LAD 11/2024
- On clopidogrel and Xarelto
-denies any CP
Hypertension
-BP stable
CKD: follow creat per primary
COPD:
-on inhaler therapy and nighttime O2
Abnormal troponin:
-0.040
acute non-ischemic myocardial injury in setting of acute illness with diverticulitis, as well as renal dysfunction
-no CP
Data Reviewed
-
EKG: Tracing Personally Visualized and interpreted (AV dual paced rhythm)
Radiology: Report Reviewed by me (CXR 04/23/25: Low lung volumes. Some bibasilar opacification most likely representing subsegmental atelectasis, cannot exclude pneumonia. No pneumothorax.)
Medical Tests (Nuc Med, Echo etc): Report Reviewed by me (echo as noted)
Labs: Labs Reviewed by me
[2025-04-24] MEDS: DELTASONE 10 MG PO (10:22)
[2025-04-24] MEDS: TOPROL XL 100 MG PO ×2 (10:23→21:11)
[2025-04-24] MEDS: PLAVIX 75 MG PO (10:23)
[2025-04-24] MEDS: SYNTHROID 75 MCG PO (10:23)
[2025-04-24] MEDS: PROTONIX 40 MG PO (10:23)
[2025-04-24] MEDS: PACERONE 400 MG PO ×2 (10:23→21:11)
[2025-04-24 12:08] LABS: Glucose - Point of Care 219 mg/dl (70-99)
[2025-04-24] MEDS: NON-FORMULARY ITEM SC (12:09)
[2025-04-24] MEDS: FLAGYL 500 MG 100 IV ×2 (15:33→23:08)
[2025-04-24 16:45] LABS: Glucose - Point of Care 236 mg/dl (70-99)
[2025-04-24] MEDS: NON-FORMULARY ITEM 3 UNIT SC (16:57)
[2025-04-24] MEDS: XARELTO 15 MG PO (17:00)
[2025-04-24 21:55] LABS: Glucose - Point of Care 260 mg/dl (70-99)
[2025-04-24] MEDS: LANTUS 0.22 UNITS SC (23:08)
[2025-04-25] VITALS (7 sets, daily range): BP systolic 107–125; BP diastolic 51–57; BMI 31.7
[2025-04-25] MEDS: SYNTHROID 75 MCG PO (05:40)
[2025-04-25 07:21] LABS: Glucose - Point of Care 114 mg/dl (70-99)
[2025-04-25] MEDS: NON-FORMULARY ITEM SC ×2 (07:58→10:04)
[2025-04-25] MEDS: FARXIGA 10 MG PO (07:59)
[2025-04-25] MEDS: STERILE WATER FOR INJECTION 10 ML IV (07:59)
[2025-04-25] MEDS: PROTONIX 40 MG PO (07:59)
[2025-04-25] MEDS: FLAGYL 500 MG 100 IV ×2 (07:59→15:16)
[2025-04-25] MEDS: ROCEPHIN 1000 MG IV (07:59)
[2025-04-25] MEDS: DELTASONE 10 MG PO (08:00)
[2025-04-25] MEDS: PLAVIX 75 MG PO (08:00)
[2025-04-25] MEDS: TOPROL XL 100 MG PO ×2 (08:00→20:49)
[2025-04-25] MEDS: LEXAPRO 20 MG PO (08:00)
[2025-04-25] MEDS: PACERONE 400 MG PO ×2 (08:00→20:49)
[2025-04-25 08:10] LABS: Blood Urea Nitrogen 39 mg/dl (7-17); Calcium 9.8 mg/dl (8.4-10.2); Carbon Dioxide 35 mmol/L (22-30); Chloride 105 mmol/L (98-107); Estimated Creatinine Clearance 23 ml/min; Glucose 125 mg/dl (70-99); Magnesium 2.3 mg/dl (1.6-2.3); Sodium 144 mmol/L (135-145)
[2025-04-25 08:29] LABS: % Basophils 0.4 % (0-2); % Eosinophils 2.5 % (0-6); % Immature Granulocytes 0.5 % (0-0.5); % Lymphocytes 15.9 % (20.5-51.1); % Monocytes 8.1 % (1.7-9.3); % Neutrophils 72.6 % (42.2-75.2); Absolute Eosinophils 0.2 10^3/uL (0-0.7); Absolute Immature Granulocytes 0.1 10^3/uL (0-0.05); Absolute Lymphocytes 1.5 10^3/uL (1.2-3.4); Absolute Monocytes 0.8 10^3/uL (0.1-0.6); Absolute Neutrophils 6.8 10^3/uL (1.4-6.5); Hematocrit 29.9 % (37.0-47.0); Hemoglobin 9.8 g/dL (12.0-16.0); Mean Corp Hgb Conc. 32.8 g/dL (33.0-37.0); Mean Corpuscular Hgb 33.3 pg (27.0-31.0); Mean Corpuscular Volume 101.7 fL (81.0-99.0); Mean Platelet Volume 8.9 fL (7.4-10.4); Nucleated Red Blood Cells % 0 %; Platelet Count 276 10^3/uL (130-400); Red Blood Cell Count 2.94 10^6/uL (4.20-5.40); Red Cell Dist. Width 14.6 % (11.5-14.5); White Blood Cell Count 9.4 10^3/uL (4.8-10.8)
[2025-04-25] MEDS: LASIX 80 MG PO ×2 (09:48→15:16)
--- NOTE | 2025-04-25 10:01 | W.PN.HOSP.TC ---
Today's Communication/Plan
-
Antibiotics. Advance diet
Assessment / Plan
Assessment / Plan
Physical exam:
General: Acutely ill
HEENT: Normocephalic, Atraumatic and Moist Mucous Membranes
Respiratory: Clear to Auscultation; Negative Wheezes, Rales or Rhonchi
Cardiac: Regular Rhythm and S1/S2
GI: Soft, tender and Nondistended
Musculoskeletal: No Clubbing, No Cyanosis and No Edema
Neuro: Awake, Alert and Oriented, no neurodeficits
Psych: Calm
A/P:
Acute diverticulitis:
On clear liquid diet--> advance to full liquid diet later today
Antibiotics, IV Rocephin and Flagyl
Seen CT scan of the abdomen and pelvis
WBC 17-->9.4 today
Antiemetics with Tigan as needed due to elevated QTc
Monitor clinical course
Acute on chronic HFpEF:
IV Lasix 80 mg x 1 and back on Lasix 80 mg p.o. twice a day
On beta-ebonie
On amiodarone 400 mg twice a day day 2 out of 7 and thereafter 200 mg daily (cardiology okay with current QTc)
BNP elevated but decreased from prior
Chest x-ray pending
Cardiology consult
Hypoxia:
Patient noticed hypoxia when she came back
Son tells me when they tested her yesterday for home oxygen need she did not walk long distance and she also was wearing her oxygen all the time--> under those circumstances we need to repeat more accurately closer to discharge-->??
AMADA on CKD:
Creatinine 1.9 mild worsening from before but within her baseline
Avoid nephrotoxic
Monitor renal function
Paroxysmal atrial fibrillation:
Continue rate control, metoprolol succinate 100 mg p.o. twice a day
Started on antiarrhythmic, amiodarone 400 mg p.o. twice a day for 1 week and then 200 mg p.o. daily
Continue anticoagulation, Xarelto 15 mg p.o. daily
Plan for possible ablation as outpatient over the next 3 to 4 months
Hyperkalemia:
Resolved
CAD:
Continue antiplatelets and anticoagulation beta-blockers
Diabetes mellitus type 2:
Insulin sliding scale
Continue Lantus 22 units every evening
COPD:
Not in exacerbation
Continue Symbicort
Mitral stenosis:
Serial echo
Pacemaker:
Functioning well
Hyperlipidemia:
On inclisiran as outpatient
Liver lesion:
Follow-up as outpatient
Hypothyroidism:
Continue thyroid replacement
DVT prophylaxis:
Xarelto
CODE STATUS:
Full code
Time spent 36 minutes
Anticipated Discharge: 24 - 48 hours
Subjective/Interval History
-
Date of Service: April 25, 2025
Patient abdominal pain improving. Less nausea no vomiting. Afebrile. On supplemental oxygen
Objective Data
-
Labs:
Laboratory Results
04/25/25
06:52
WBC 9.4
Hgb 9.8 L
Hct 29.9 L
Plt Count 276 D
Sodium 144
Potassium 4.0
Chloride 105
Carbon Dioxide 35 H
BUN 39 H
Creatinine 1.9 H
Glucose 125 H
Calcium 9.8
Vital Signs:
Vital Signs
Temp Pulse Resp BP Pulse Ox
98.6 F 72 20 113/51 98
04/25/25 07:00 04/25/25 07:00 04/25/25 07:00 04/25/25 07:00 04/25/25 07:00
I&O
04/24/25 04/25/25 04/26/25
06:59 06:59 06:59
Intake Total 120 / 120
Balance 120 / 120
[2025-04-25 11:18] LABS: Glucose - Point of Care 190 mg/dl (70-99)
--- NOTE | 2025-04-25 11:24 | CM ---
CM reviewed chart, patient seen bedside, initial assessment completed. Patient discharged from [facility] earlier this week. Patient confirms she resides independently in [facility] [address], second floor, elevator access. Patient reports
utilizing rollator for ambulation, wears nocturnal O2 through [facility]. Patient reports [facility] in past, denies SNF. Patient confirms PCP Jose Barakat, pharmacy [facility], confirms prescription coverage. Patient remains on IV
antibiotics. CM will watch for O2 needs/changes upon discharge.
Plan; home, watch for further O2 needs
[2025-04-25] MEDS: NON-FORMULARY ITEM 10 UNITS SC ×2 (13:57→16:50)
[2025-04-25] MEDS: NON-FORMULARY ITEM 1 UNIT SC (13:57)
[2025-04-25 16:41] LABS: Glucose - Point of Care 287 mg/dl (70-99)
[2025-04-25] MEDS: NON-FORMULARY ITEM 5 UNIT SC (16:50)
[2025-04-25] MEDS: XARELTO 15 MG PO (17:47)
[2025-04-25 21:27] LABS: Glucose - Point of Care 149 mg/dl (70-99)
[2025-04-25] MEDS: LANTUS SC (22:02)
--- NOTE | 2025-04-25 22:02 | PTCARENOTE ---
Patient's BSG 149. House DIE CUTTER OPERATOR notified, HOLD scheduled Lantus 22 units and recheck 04/26 midnight
[2025-04-26] VITALS (7 sets, daily range): BP systolic 113–134; BP diastolic 46–67; BMI 31.9
[2025-04-26 00:11] LABS: Glucose - Point of Care 123 mg/dl (70-99)
[2025-04-26] MEDS: FLAGYL 500 MG 100 IV ×3 (00:12→17:29)
--- NOTE | 2025-04-26 00:12 | PTCARENOTE ---
Per GLUED WOOD TESTER, BSG rechecked 123- House SCADA ENGINEER notified. HOLD Lantus 22 units.
[2025-04-26] MEDS: SYNTHROID 75 MCG PO (05:50)
[2025-04-26 07:46] LABS: Glucose - Point of Care 128 mg/dl (70-99)
[2025-04-26 08:37] LABS: % Basophils 0.2 % (0-2); % Eosinophils 2.5 % (0-6); % Immature Granulocytes 0.5 % (0-0.5); % Lymphocytes 15.8 % (20.5-51.1); % Monocytes 7.9 % (1.7-9.3); % Neutrophils 73.1 % (42.2-75.2); Absolute Eosinophils 0.2 10^3/uL (0-0.7); Absolute Lymphocytes 1.3 10^3/uL (1.2-3.4); Absolute Monocytes 0.6 10^3/uL (0.1-0.6); Hematocrit 31.4 % (37.0-47.0); Hemoglobin 10.1 g/dL (12.0-16.0); Mean Corp Hgb Conc. 32.2 g/dL (33.0-37.0); Mean Corpuscular Hgb 32.7 pg (27.0-31.0); Mean Corpuscular Volume 101.6 fL (81.0-99.0); Mean Platelet Volume 8.9 fL (7.4-10.4); Nucleated Red Blood Cells % 0 %; Platelet Count 286 10^3/uL (130-400); Red Blood Cell Count 3.09 10^6/uL (4.20-5.40); Red Cell Dist. Width 14.3 % (11.5-14.5); White Blood Cell Count 8.1 10^3/uL (4.8-10.8)
[2025-04-26] MEDS: NON-FORMULARY ITEM SC (09:01)
[2025-04-26] MEDS: PROTONIX 40 MG PO (09:13)
[2025-04-26] MEDS: LASIX 80 MG PO ×2 (09:13→17:28)
[2025-04-26] MEDS: FARXIGA 10 MG PO (09:13)
[2025-04-26] MEDS: LEXAPRO 20 MG PO (09:13)
[2025-04-26] MEDS: PLAVIX 75 MG PO (09:13)
[2025-04-26 09:14] LABS: Blood Urea Nitrogen 29 mg/dl (7-17); Calcium 9.2 mg/dl (8.4-10.2); Carbon Dioxide 34 mmol/L (22-30); Chloride 100 mmol/L (98-107); Estimated Creatinine Clearance 24 ml/min; Glucose 122 mg/dl (70-99); Potassium 3.4 mmol/L (3.5-5.1); Sodium 141 mmol/L (135-145); eGFR 27.96
[2025-04-26] MEDS: STERILE WATER FOR INJECTION 10 ML IV (09:14)
[2025-04-26] MEDS: ROCEPHIN 1000 MG IV (09:14)
[2025-04-26] MEDS: PACERONE 400 MG PO ×2 (09:14→20:33)
[2025-04-26] MEDS: FLUSH (NSS) 3 FLUSH IV (09:16)
[2025-04-26] MEDS: NON-FORMULARY ITEM 10 UNITS SC ×3 (09:19→17:24)
[2025-04-26] MEDS: DELTASONE 10 MG PO (09:28)
[2025-04-26] MEDS: TOPROL XL 100 MG PO ×2 (09:28→20:33)
--- NOTE | 2025-04-26 11:27 | W.PN.HOSP.TC ---
Today's Communication/Plan
-
Advance diet. Antibiotics
Assessment / Plan
Assessment / Plan
Physical exam:
General: Acutely ill
HEENT: Normocephalic, Atraumatic and Moist Mucous Membranes
Respiratory: Clear to Auscultation; Negative Wheezes, Rales or Rhonchi
Cardiac: Regular Rhythm and S1/S2
GI: Soft, tender and Nondistended
Musculoskeletal: No Clubbing, No Cyanosis and No Edema
Neuro: Awake, Alert and Oriented, no neurodeficits
Psych: Calm
A/P:
Acute diverticulitis:
Advance to low residue diet today
Antibiotics, IV Rocephin and Flagyl
Seen CT scan of the abdomen and pelvis
WBC 17--> 8.1 today
Antiemetics with Tigan as needed due to elevated QTc
Monitor clinical course
Acute on chronic HFpEF:
IV Lasix 80 mg x 1 and back on Lasix 80 mg p.o. twice a day
On beta-ebonie
On amiodarone 400 mg twice a day day 2 out of 7 and thereafter 200 mg daily (cardiology okay with current QTc)
BNP elevated but decreased from prior
Chest x-ray pending
Cardiology consult
Hypoxia:
Patient noticed hypoxia when she came back
Son tells me when they tested her yesterday for home oxygen need she did not walk long distance and she also was wearing her oxygen all the time--> under those circumstances we need to repeat more accurately closer to discharge-->??
Assess for home oxygen needs again today
AMADA on CKD:
Creatinine 1.8 stable
Avoid nephrotoxic
Monitor renal function
Paroxysmal atrial fibrillation:
Continue rate control, metoprolol succinate 100 mg p.o. twice a day
Started on antiarrhythmic, amiodarone 400 mg p.o. twice a day for 1 week and then 200 mg p.o. daily
Continue anticoagulation, Xarelto 15 mg p.o. daily
Plan for possible ablation as outpatient over the next 3 to 4 months
Hyperkalemia:
Resolved
CAD:
Continue antiplatelets and anticoagulation beta-blockers
Diabetes mellitus type 2:
Insulin sliding scale
Continue Lantus 22 units every evening
COPD:
Not in exacerbation
Continue Symbicort
Mitral stenosis:
Serial echo
Pacemaker:
Functioning well
Hyperlipidemia:
On inclisiran as outpatient
Liver lesion:
Follow-up as outpatient
Hypothyroidism:
Continue thyroid replacement
DVT prophylaxis:
Xarelto
CODE STATUS:
Full code
Anticipated Discharge: Within 24 hours
Subjective/Interval History
-
Date of Service: April 26, 2025
No abdominal pain nausea or vomiting.
Objective Data
-
Labs:
Laboratory Results
04/26/25
06:36
WBC 8.1
Hgb 10.1 L
Hct 31.4 L
Plt Count 286
Sodium 141
Potassium 3.4 L
Chloride 100
Carbon Dioxide 34 H
BUN 29 H
Creatinine 1.8 H
Glucose 122 H
Calcium 9.2
Vital Signs:
Vital Signs
Temp Pulse Resp BP Pulse Ox
98.3 F 72 16 113/51 98
04/26/25 11:00 04/26/25 11:00 04/26/25 11:00 04/26/25 11:00 04/26/25 11:00
I&O
04/25/25 04/26/25 04/27/25
06:59 06:59 06:59
Intake Total 120 / 120 820 / 820
Balance 120 / 120 820 / 820
[2025-04-26 11:46] LABS: Glucose - Point of Care 268 mg/dl (70-99)
[2025-04-26] MEDS: NON-FORMULARY ITEM 5 UNIT SC (15:05)
[2025-04-26 16:43] LABS: Glucose - Point of Care 222 mg/dl (70-99)
[2025-04-26] MEDS: NON-FORMULARY ITEM 3 UNIT SC (17:24)
[2025-04-26] MEDS: FLUSH (NSS) 1 FLUSH IV (17:28)
[2025-04-26] MEDS: XARELTO 15 MG PO (17:28)
[2025-04-26 20:21] LABS: Glucose - Point of Care 84 mg/dl (70-99)
[2025-04-26] MEDS: LANTUS SC (20:41)
[2025-04-26 22:18] LABS: Glucose - Point of Care 92 mg/dl (70-99)
[2025-04-27] VITALS (8 sets, daily range): BP systolic 107–132; BP diastolic 52–68; PULSE 75; O2SAT 96; BMI 32.6
[2025-04-27] MEDS: FLAGYL 500 MG 100 IV (00:05)
[2025-04-27] MEDS: SYNTHROID 75 MCG PO (05:39)
[2025-04-27 07:29] LABS: Glucose - Point of Care 146 mg/dl (70-99)
[2025-04-27] MEDS: NON-FORMULARY ITEM SC (08:54)
[2025-04-27] MEDS: NON-FORMULARY ITEM 10 UNITS SC ×3 (09:04→17:21)
[2025-04-27] MEDS: LASIX 80 MG PO ×2 (09:05→17:07)
[2025-04-27] MEDS: FARXIGA 10 MG PO (09:05)
[2025-04-27] MEDS: PACERONE 400 MG PO ×2 (09:05→20:39)
[2025-04-27] MEDS: PROTONIX 40 MG PO (09:06)
[2025-04-27] MEDS: PLAVIX 75 MG PO (09:06)
[2025-04-27] MEDS: LEXAPRO 20 MG PO (09:06)
[2025-04-27] MEDS: TOPROL XL 100 MG PO ×2 (09:09→20:39)
[2025-04-27] MEDS: DELTASONE 10 MG PO (09:09)
[2025-04-27] MEDS: FLAGYL 500 MG PO ×3 (09:11→23:00)
[2025-04-27] MEDS: STERILE WATER FOR INJECTION IV (09:21)
[2025-04-27] MEDS: ROCEPHIN IV (09:21)
[2025-04-27] MEDS: FLAGYL 500 MG IV (09:21)
[2025-04-27] MEDS: CEFTIN 250 MG PO ×2 (10:55→20:39)
--- NOTE | 2025-04-27 11:29 | W.PN.HOSP.TC ---
Today's Communication/Plan
-
Discharge planning today
Assessment / Plan
Assessment / Plan
Physical exam:
General: No acute distress
HEENT: Normocephalic, Atraumatic and Moist Mucous Membranes
Respiratory: Clear to Auscultation; Negative Wheezes, Rales or Rhonchi
Cardiac: Regular Rhythm and S1/S2
GI: Soft, tender and Nondistended
Musculoskeletal: No Clubbing, No Cyanosis and No Edema
Neuro: Awake, Alert and Oriented, no neuro-deficits
Psych: Calm
A/P:
Acute diverticulitis:
Tolerating low residue diet
Switch antibiotics to oral cefuroxime and Flagyl today
Seen CT scan of the abdomen and pelvis
WBC 17--> 8.1 yesterday
Antiemetics with Tigan as needed due to elevated QTc
Medically ready for discharge today
Case management for discharge disposition
Acute on chronic HFpEF:
IV Lasix 80 mg x 1 upon admission and back on Lasix 80 mg p.o. twice a day
On beta-ebonie
On amiodarone 400 mg twice a day day 2 out of 7 and thereafter 200 mg daily (cardiology okay with current QTc)
BNP elevated but decreased from prior
Chest x-ray reviewed
Cardiology consult appreciated
Hypoxia:
Patient is in need of oxygen at 2 liters/minute via nasal cannula continuously due to pulse oximetry of 80% on room air at rest. Oxygen will help to improve hypoxemia. Patient is mobile within the home. DuoNeb therapy has been tried and is
ineffective in treating hypoxemia related symptoms. Oxygen is needed to improve symptoms.
AMADA on CKD:
Creatinine 1.8 yesterday stable
Avoid nephrotoxic
Monitor renal function
Paroxysmal atrial fibrillation:
Continue rate control, metoprolol succinate 100 mg p.o. twice a day
Started on antiarrhythmic, amiodarone 400 mg p.o. twice a day for 1 week and then 200 mg p.o. daily
Continue anticoagulation, Xarelto 15 mg p.o. daily
Plan for possible ablation as outpatient over the next 3 to 4 months
CAD:
Continue antiplatelets and anticoagulation beta-blockers
Diabetes mellitus type 2:
Insulin sliding scale
Continue Lantus 22 units every evening
COPD:
Not in exacerbation
Continue Symbicort
Mitral stenosis:
Serial echo as outpatient
Pacemaker:
Functioning well
Hyperlipidemia:
On inclisiran as outpatient
Liver lesion:
Follow-up as outpatient
Hypothyroidism:
Continue thyroid replacement
DVT prophylaxis:
Xarelto
CODE STATUS:
Full code
Anticipated Discharge: Today
Subjective/Interval History
-
Date of Service: April 27, 2025
Patient denies abdominal pain nausea or vomiting. Tolerating diet. No worsening shortness of breath. Afebrile
Objective Data
-
Vital Signs:
Vital Signs
Temp Pulse Resp BP Pulse Ox
98.1 F 72 18 119/67 100
04/27/25 07:35 04/27/25 07:35 04/27/25 07:35 04/27/25 07:35 04/27/25 07:35
I&O
04/26/25 04/27/25 04/28/25
06:59 06:59 06:59
Intake Total 820 / 820 240 / 240 480 / 480
Balance 820 / 820 240 / 240 480 / 480
--- NOTE | 2025-04-27 11:32 | W.DCSUMMARY ---
Addendum entered and electronically signed by Tapan Turk MD 04/28/25 12:26:
Date of discharge 04/28/2025
Patient at this day overnight as there oxygenation set up at home was not complete.
Remains medically stable for discharge today.
Original Note:
Discharge Summary
Discharge Data
Date of Admission: 04/24/25
Date of Discharge: 04/27/25
Total time spent discharging patient (in min): 35
-
Pending Results: No
Hospital Course
Patient 80 years old female with history of CAD, A-fib, CHF, COPD, hypertension, diabetes mellitus, came into the hospital with abdominal pain nausea vomiting related to acute recurrent diverticulitis. Patient was initiated on IV antibiotics and
kept n.p.o. and her diet was advanced slowly. Patient also was hypoxic on presentation and she was given IV diuretics and placed back on her oral diuretic regimen. She had a recent hospitalization for heart failure and A-fib and cardiology saw her
again during this hospital stay and will have her follow-up as outpatient with cardiology. Her diverticulitis improved and she has been able to tolerate diet, her pain subsided, and she is back to her baseline. We will do a referral as outpatient
for possible scope if indicated in the next 2 to 3 months after this acute event (I discussed with GI on-call today, Dr. Louie). Patient will be discharged in stable condition today.
Discharge duration: 35 minutes
Discharge Plan
-
Patient Disposition: Home with Home Care
Discharge Diagnosis/Procedures: Acute diverticulitis. Acute on chronic diastolic congestive heart failure. Hypoxia. Acute kidney injury on chronic kidney disease. History of paroxysmal atrial fibrillation.
Diet: Low Cholesterol, 2 Gram Sodium and Restrict fluids to 64 oz
Activity: As tolerated
Blood Work: Please PCP to order CBC, BMP within 1 week
Referrals:
Jose Barakat MD [Family Provider, Internal Medicine] - in less than 1 week
Tatyana Louie MD [Active, Gastroenterology] - in four to six weeks
Davi Crawley MD [Active, Cardiology] - in one to two weeks
Prescriptions:
New
cefuroxime axetil 250 mg Tablet
250 mg PO BID 10 Days Qty: 20 0RF
metronidazole 500 mg Tablet
500 mg PO Q8 10 Days Qty: 30 0RF
Saccharomyces boulardii [Florastart] 250 mg capsule
250 mg PO BID 14 Days Qty: 28 0RF
Continued
alprazolam 0.25 mg Tablet
0.25 mg PO DAILYPRN PRN (Reason: anxiety)
albuterol sulfate 90 mcg/actuation Hfa Aerosol Inhaler
2 puff INHALATION R Q6HPRN PRN (Reason: sob/ wheeze)
prednisone 10 mg Tablet
10 mg PO DAILY
metoprolol succinate [Toprol XL] 100 mg Tablet Extended Release 24 Hr
100 mg PO BID
levothyroxine [Synthroid] 75 mcg Tablet
75 mcg PO DAILY
pantoprazole 40 mg Tablet,Delayed Release (Dr/Ec)
40 mg PO DAILY
escitalopram oxalate 20 mg Tablet
20 mg PO DAILY
insulin degludec [Tresiba FlexTouch U-100] 100 unit/mL (3 mL) Insulin Pen
22 unit SC HS
inclisiran 284 mg/1.5 mL Syringe
284 mg SC [id number]
clopidogrel 75 mg Tablet
75 mg PO DAILY Qty: 90 5RF
Trelegy Ellipta 200-62.5-25 mcg Blister With Device
1 inh INHALATION R DAILY
insulin lispro [Admelog SoloStar U-100 Insulin] 100 unit/mL Insulin Pen
10 sliding scale dose SC AC
Patient Comments:
<150, give 10 units subQ
151-200, takes 14 units subQ
201-250, takes 16 units subQ
251-300, takes 18 units subQ
301-350, takes 20 units subQ
351-400, takes 22 units subQ
401-450, takes 24 units subQ
451or more, call doctor
Rx Instructions:
CAN NOT TAKE NOVOLOG
Xarelto 15 mg Tablet
15 mg PO QPM 30 Days Qty: 30 0RF
dapagliflozin propanediol 10 mg Tablet
10 mg PO DAILY 30 Days Qty: 30 0RF
amiodarone 200 mg tablet
400 mg PO DIRECTED
Rx Instructions:
start on 04/23/25 take 400mg bid for 7 days the on 05/01/25 start 200mg daily.
furosemide 80 mg tablet
80 mg PO BID@0800,1600
Discharge Orders:
Discharge Patient (As Directed); Ordered 04/27/25
Ordered By: Pelon Lopez
Discharge Date and Time
Print Language: SWEDISH
--- NOTE | 2025-04-27 11:32 | W.PN.UPDATE ---
Update Note
Progress Note Update
Patient is in need of oxygen at 2 liters/minute via nasal cannula continuously due to pulse oximetry of 80% on room air at rest. Oxygen will help to improve hypoxemia. Patient is mobile within the home. DuoNeb therapy has been tried and is
ineffective in treating hypoxemia related symptoms. Oxygen is needed to improve symptoms.
[2025-04-27 11:39] LABS: Glucose - Point of Care 260 mg/dl (70-99)
[2025-04-27] MEDS: NON-FORMULARY ITEM 5 UNIT SC (13:08)
--- NOTE | 2025-04-27 13:20 | CM ---
Addendum entered by Alexandra Johnson 04/27/25 16:32:
Still no answer from [facility].
Addendum entered by Alexandra Johnson 04/27/25 14:10:
All clinicals faxed to [facility], [phone]
Original Note:
Chart reviewed and patient is for discharge to home today with continuous oxygen, geriatric case manager reached out to [employer] [facility] and faxed over testing and script, patient is current with [facility] visiting nurses, and referral sent to [facility].
IMM completed and placed on chart.
Plan: Home with [facility] and [employer] for continuous home oxygen in home.
[facility]
[phone]
[2025-04-27 16:44] LABS: Glucose - Point of Care 259 mg/dl (70-99)
[2025-04-27] MEDS: TYLENOL 650 MG PO (17:05)
[2025-04-27] MEDS: XARELTO 15 MG PO (17:10)
[2025-04-27] MEDS: NON-FORMULARY ITEM 1 UNIT SC (17:20)
[2025-04-27 21:40] LABS: Glucose - Point of Care 118 mg/dl (70-99)
[2025-04-27] MEDS: LANTUS 0.22 UNITS SC (22:03)
[2025-04-28 03:45] VITALS: BP 145/84
[2025-04-28] MEDS: AFRIN NASAL SPRAY 2 SPRAYS NASAL (03:56)
[2025-04-28] MEDS: SYNTHROID 75 MCG PO (04:47)
[2025-04-28 06:00] VITALS: BMI 32.3
[2025-04-28 07:35] VITALS: BP 127/53
[2025-04-28 07:59] LABS: Blood Urea Nitrogen 35 mg/dl (7-17); Carbon Dioxide 34 mmol/L (22-30); Chloride 100 mmol/L (98-107); Estimated Creatinine Clearance 24 ml/min; Glucose 110 mg/dl (70-99); Potassium 3.6 mmol/L (3.5-5.1); Sodium 140 mmol/L (135-145); eGFR 27.96
[2025-04-28 08:15] LABS: Glucose - Point of Care 123 mg/dl (70-99)
[2025-04-28] MEDS: NON-FORMULARY ITEM SC (08:28)
[2025-04-28] MEDS: TOPROL XL 100 MG PO (09:01)
[2025-04-28] MEDS: LASIX 80 MG PO (09:02)
[2025-04-28] MEDS: FARXIGA 10 MG PO (09:02)
[2025-04-28] MEDS: PACERONE 400 MG PO (09:02)
[2025-04-28] MEDS: PLAVIX 75 MG PO (09:02)
[2025-04-28] MEDS: PROTONIX 40 MG PO (09:02)
[2025-04-28] MEDS: DELTASONE 10 MG PO (09:02)
[2025-04-28] MEDS: CEFTIN 250 MG PO (09:03)
[2025-04-28] MEDS: FLAGYL 500 MG PO (09:03)
[2025-04-28] MEDS: LEXAPRO 20 MG PO (09:03)
[2025-04-28] MEDS: NON-FORMULARY ITEM 10 UNITS SC ×2 (10:56→13:13)
[2025-04-28 11:01] VITALS: BP 115/50
--- NOTE | 2025-04-28 11:05 | PTCARENOTE ---
Assumed care of pt from previous nurse. Pt denies pain. pt is on 2L's 02 via NC, MENON. Pt is on tele running a-v paced. Pt call martin is within reach, pt rings jona. will cont to monitor.
[2025-04-28 12:04] LABS: Glucose - Point of Care 334 mg/dl (70-99)
--- NOTE | 2025-04-28 12:24 | W.PN.UPDATE ---
Update Note
Progress Note Update
Patient was deemed stable yesterday for discharge and in fact was discharged home and all the paperwork was done.
Patient had to stay overnight to get a home oxygen concentrator. Case management working on obtaining it.
Patient denies any new symptoms since yesterday.
Denies any nausea vomiting. Tolerating diet. Denies any abdominal pain.
Denies shortness of breath. Chest is clear. Afebrile and hemodynamically stable. Saturating well on 2 L. She normally uses 2 L at night now needing 2 L during the day. Weight 176 pounds which is close to her baseline. Continue with her
diuretic regimen.
Medically stable for discharge as planned yesterday.
Discussed with the son at bedside
[2025-04-28] MEDS: NON-FORMULARY ITEM 7 UNIT SC (13:12)
--- NOTE | 2025-04-28 14:39 | CM ---
CM reviewed chart, patient seen bedside with son, patient reports she cannot use a walker and use an O2 tank- needs a portable. LAUREN spoke with Vladimir from [employer], updated script sent over, will deliver portable to patient. LAUREN will continue to
follow for all discharge planning needs.
Plan; home with [facility] and [facility] for continuos home O2
Girma
[2025-04-28 15:15] VITALS: BP 127/67
--- NOTE | 2025-04-28 16:56 | PTCARENOTE ---
Pt dc'd to home, paperwork reviewed and copy given to pt. Pt iv removed, tele removed. Assisted to car where was waiting via w/c. All belongings from room with pt.
== END 2025-04-28 16:33 | disposition home health service (06) | DRG 291 ==
LOC: 4 WEST ACU 08:33
PROVIDERS: Physician Assistant; ADMITTING PHYSICIAN Hospitalist; ATTENDING PHYSICIAN Internal Medicine; CONSULT PHYSICIAN Internal Medicine Cardiovascular Disease; EMERGENCY PHYSICIAN Emergency Medicine; FAMILY PHYSICIAN Internal Medicine
DX: I13.0 Hypertensive heart and chronic kidney disease with heart failure and stage 1 through stage 4 chronic kidney disease, or unspecified chronic kidney disease (principal); I50.33 Acute on chronic diastolic (congestive) heart failure; K57.32 Diverticulitis of large intestine without perforation or abscess without bleeding; N17.9 Acute kidney failure, unspecified; N18.9 Chronic kidney disease, unspecified; E11.22 Type 2 diabetes mellitus with diabetic chronic kidney disease; R09.02 Hypoxemia; I48.0 Paroxysmal atrial fibrillation; F41.9 Anxiety disorder, unspecified; Z79.899 Other long term (current) drug therapy; Z79.890 Hormone replacement therapy; Z79.4 Long term (current) use of insulin; Z79.01 Long term (current) use of anticoagulants; I25.10 Atherosclerotic heart disease of native coronary artery without angina pectoris; I25.2 Old myocardial infarction; Z95.5 Presence of coronary angioplasty implant and graft; J44.9 Chronic obstructive pulmonary disease, unspecified; Z87.891 Personal history of nicotine dependence; Z88.2 Allergy status to sulfonamides; E78.00 Pure hypercholesterolemia, unspecified; E03.9 Hypothyroidism, unspecified; E87.5 Hyperkalemia; K21.9 Gastro-esophageal reflux disease without esophagitis; K76.9 Liver disease, unspecified; Z79.02 Long term (current) use of antithrombotics/antiplatelets
CPT/HCPCS: 71046; 74176; 80048; 80053; 82962; 83690; 83735; 83880; 84484; 85025; 93005; 94761; 96374; 96375; 97162; 99285